=== PATIENT | female | born 1940 | race Caucasian/White ===

== ENCOUNTER 2022-12-01 20:59 | Emergency (ER) | payer OTHER, BC ==
--- OUTSIDE RECORDS SUMMARY | 2022-12-01 21:17 | XMS REPORT | Continuity of Care Document ---
:1940 Author Organization [facility] t Address [address] [place] [address] [place] [id number] Care Team Providers Name Role Phone William Ulysses Daley Primary Care Physician Lucila Christopher MD Attending Clinician LUCILA CHRISTOPHER Attending Clinician Unavailable Pob, [facility] Main Attending Clinician Unavailable Woody Gonzalez MD Attending Clinician WOODY GONZALEZ Attending Clinician Unavailable Ulysses Brown MD Attending Clinician ULYSSES BROWN Attending Clinician Unavailable Doctor Unassigned, Valatie Attending Clinician Unavailable Pcp, Patient Does Not Have A Attending Clinician [phone] MERNA BUCK Attending Clinician Unavailable Merna Forrester Attending Clinician MONALISA NOLASCO Attending Clinician Unavailable ROBIN RAMOS Attending Clinician Unavailable VERENICE MATTHEWS M.D. Attending Clinician Unavailable ULYSSES ENG M.D. Attending Clinician Unavailable Payers Payer Name Policy Type Policy Number Effective Date Expiration Date S ource Problems Condition Condition Condition Status Onset Resolution Last Treating Co mments Source Name Details Category Date Date Treatment Clinician Date Status Status Disease Active 2018-04 [facility] post total post total 0-22 st knee knee 00:00: Hospita replacemen replacemen 00 l t t History of History of Problem Resolve [facility] Other Other d Physici depression depression an s History of History of Problem Resolve [facility] Chronic Chronic d Physici reactive reactive ans otitis otitis externa of externa of both ears both ears History of History of Problem Resolve [facility] Chronic Chronic d Physici throat throat ans clearing clearing History of History of Problem Resolve UT Benign Benign d Physici essential essential ans hypertensi hypertensi on on History of History of Problem Resolve UT Other Other d Physici hyperlipid hyperlipid an s emia emia Pre-operat Pre-operat Problem Active U T sascha sascha Physici cardiovasc cardiovasc an s ular ular examinatio examinatio n n History of History of Problem Resolve UT gastroesop gastroesop d Ph ysici hageal hageal ans reflux reflux (GERD) (GERD) History of History of Problem Resolve UT 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 History of History of Problem Resolve UT Measles Measles d Physici without without ans complicati complicati on on History of History of Problem Resolve UT Other Other d Physici insomnia insomnia ans History of History of Problem Resolve 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 History of History of Problem Resolve UT Seasonal Seasonal d Physic i allergic allergic ans rhinitis rhinitis due to due to other other allergic allergic trigger trigger Primary Primary Problem Active UT 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 Chronic Chronic Problem Active UT pain of pain of Physici left knee left knee ans Abnormal Abnormal Problem Active UT glucose glucose Physici ans Chronic Chronic Problem Active 2020-07-04 Me moria gout, gout, 02:53:22 l unspecifie unspecifie He rmann d, without d, without tophus tophus (tophi) (tophi) Active Problem 07/04/2020 [facility] Rheumatoid Rheumatoi Problem Active 2020-07-04 [facility] arthritis, d 02:53:22 l unspecifie arthritis, He rmann d unspecifie d Active Problem 07/04/2020 [facility] Bilateral Bilateral Problem Active 2020-07-04 Memoria primary primary 02:53:22 l osteoarthr osteoarthr He rmann itis of itis of knee knee Active Problem 07/04/2020 Yudelka Murguia s Nonspecifi Nonspecif Problem Active 2020-07-04 Memoria c ic 02:53:22 l elevation elevation Herm nuris of levels of levels of of transamina transamina se and se and lactic lactic acid acid dehydrogen dehydrogen ase [LDH] ase [LDH] Active Problem 07/04/2020 Yudelka Murguia s Unilateral Unilatera Problem Active 2020-07-04 Memoria primary l primary 02:53:22 l osteoarthr osteoarthr He rmann itis, left itis, left knee knee Active Problem 07/04/2020 Y[facility]elka Murguia s Inflammato Inflammat Problem Active 2020-07-04 Memoria ry ory 02:53:22 l polyarthro polyarthro He rmann gurinder gurinder Active Problem 07/04/2020 Yudelka Murguia s 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 2020-07-04 Memoria d ed 02:53:22 l osteoporos osteoporos He rmann is without is without current current pathologic pathologic al al fracture fracture Active Problem 07/04/2020 Yudelka Murguia s Pain in Pain in Problem Active 2020-07-04 Me moria unspecifie unspecifie 02:53:22 l d knee d knee [place] Active Problem 07/04/2020 Yudelka Murguia s Pain in Pain in Problem Active 2020-07-04 Me moria unspecifie unspecifie 02:53:22 l d hip d hip [place] Active Problem 07/04/2020 Yudelka Murguia s Rheumatoid Rheumatoi Problem Active 2020-07-04 Memoria arthritis d 02:53:22 l without arthritis Paolo n rheumatoid without factor, rheumatoid multiple factor, sites multiple sites Active Problem 07/04/2020 Yudelka Murguia s Arthritis, Arthritis Problem Active 2016-03-09 [facility] Rheumatoid , 03:53:41 l Rheumatoid [place] Active Problem 03/09/2016 [facility]ka Murgu[facility] Chronic Chronic Problem Active 2016-03-09 Me moria gouty gouty 03:53:41 l arthropath arthropath He rmann y without y without mention of mention of tophus tophus (tophi) (tophi) Active Problem 03/09/2016 Yudelka Murguia s Pain in Pain in Problem Active 2016-03-09 Me moria joint, joint, 03:53:41 l pelvic pelvic [place] region and region and thigh thigh Active Problem 03/09/2016 Yudelka Murguia s Swelling Swelling Problem Active 2016-03-09 Mem[facility] of limb of limb 03:53:41 l Active [place] Problem 03/09/2016 Yudelka Murguia s Senile Senile Problem Active 2016-03-09 Mem oria osteoporos osteoporos 03:53:41 l is is Active [place] Problem 03/09/2016 JennersAl Murguia s knee pain knee pain Problem Active 2016-03-09 Memoria Active 03:53:41 l Problem [place] 03/09/2016 Yudelka Murguia s Other Other Problem Active 2016-03-09 Memor ia tenosynovi tenosynovi 03:53:41 l tis of tis of [place] hand and hand and wrist wrist Active Problem 03/09/2016 Yudelka Murguia s Pain in Pain in Problem Active 2016-03-09 Me moria joint, joint, 03:53:41 l hand hand [place] Active Problem 03/09/2016 Yudelka Murguia s Primary Primary Problem Active 2016-03-09 Me moria localized localized 03:53:41 l osteoarthr osteoarthr He nuris osis, osis, lower leg lower leg Active Problem 03/09/2016 Yudelka Murguia [facility] 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 N.K.Amy.A. Active Info Not Yandel tawanna Available -03 l 00:00: [place] 00 NO KNOWN Drug Active Univers ALLERGIE Class ity of S [facility] Family History Family Member Diagnosis Comments Start Date Stop Date Source Mother [facility] history of [facility] diabetes mellitus Mother [facility] history of [facility] hypertension Mother [facility] history of [facility] Stroke of unknown etiology Mother [facility] history of [facility] chronic obstructive pulmonary disease Father [facility] history of [facility] lung cancer Sister [facility] history of [facility] malignant neoplasm Natural father Cancer [facility] Natural mother Stroke [facility] Natural sister Cancer [facility] Natural sister Diabetes [facility] Social History Social Habit Start Date Stop Date Quantity Comments Source Gender identity [facility] Sexual orientation [facility] History of Social 2022-07-07 2022-07-[address] function 00:00:00 00:00:00 Hospital Exposure to 2021-12-22 2022-01-01 Not sure University SARS-CoV-2 (event) 00:00:00 13:46:00 [facility] Tobacco use and 2021-03-08 2021-03-08 Smokeless Universit y of exposure 00:00:00 00:00:00 tobacco non-user [facility] Alcohol intake 2019-01-24 2019-01-24 Lifetime [facility] 00:00:00 00:00:00 non-drinker Hospital (finding) Useofrecreational/s 2016-02-19 2016-02-19 Memor aaliyah Lozada treetdrugs? 00:00:00 00:00:00 Sex [birth year] [facility] 00:00:00 00:00:00 Hospital Smoking Status Start Date Stop Date Source Never smoked tobacco [facility] Medications Ordered Filled Start Stop Current Ordering Indication Dosage Frequency Signature Comments Components Source Medication Medication Date Date Medication? Clinician (SIG) Name Name amLODIPine 2021- No 5mg Take 5 mg U nivers (NORVASC) 5 12-14 by mouth ity of mg tablet 15:58: 00:00 daily. [place] 52 :00 [facility] amLODIPine 2021- No 5mg Take 5 mg U nivers (NORVASC) 5 12-14 by mouth ity of mg tablet 15:58: 00:00 daily. [place] 52 :00 [facility] amLODIPine 2021- No 5mg Take 5 mg U nivers (NORVASC) 5 12-14 by mouth ity of mg tablet 15:58: 00:00 daily. [place] 52 :00 [facility] amLODIPine 2021- No 5mg Take 5 mg U nivers (NORVASC) 5 12-1412 by mouth ity of mg tablet 15:58: 00:00 daily. [place] 52 :00 [facility] mv-mn/iron/ 0 Yes Take by Uni vers folic 9-12 mouth. ity of acid/herb 15:46: [place] 190 05 Medical (VITAMIN D3 Branch COMPLETE ORAL) GABAPENTIN Yes Take by Univ ers ORAL 9-12 mouth. ity of 15:46: [place] 05 Medical Branch mv-mn/iron/ Yes Take by Uni vers folic 9-12 mouth. ity of acid/herb 15:46: [place] 190 05 Medical (VITAMIN D3 Branch COMPLETE ORAL) GABAPENTIN Yes Take by Univ ers ORAL 9-12 mouth. ity of 15:46: [place] 05 Medical Branch mv-mn/iron/ Yes Take by Uni vers folic 9-12 mouth. ity of acid/herb 15:46: [place] 190 05 Medical (VITAMIN D3 Branch COMPLETE ORAL) GABAPENTIN Yes Take by Univ ers ORAL 9-12 mouth. ity of 15:46: [place] 05 Medical Branch mv-mn/iron/ Yes Take by Uni vers folic 9-12 mouth. ity of acid/herb 15:46: [place] 190 05 Medical (VITAMIN D3 Branch COMPLETE ORAL) GABAPENTIN Yes Take by Univ ers ORAL 9-12 mouth. ity of 15:46: [place] 05 Medical Branch mv-mn/iron/ Yes Take by Uni vers folic 9-12 mouth. ity of acid/herb 15:46: [place] 190 05 Medical (VITAMIN D3 Branch COMPLETE ORAL) GABAPENTIN Yes Take by Univ ers ORAL 9-12 mouth. ity of 15:46: [place] 05 Medical Branch NaCl 0.9% 2020-04 Yes by IV Univers (NS) SolP 2-05 Infusion ity of 100 mL with 10:43: route once [place] golimumab 44 now. Medical 12.5 mg/mL Branch Soln NaCl 0.9% 2020-04 Yes by IV Univers (NS) SolP 2-05 Infusion ity of 100 mL with 10:43: route once [place] golimumab 44 now. Medical 12.5 mg/mL Branch Soln NaCl 0.9% 2020-04 Yes by IV Univers (NS) SolP 2-05 Infusion ity of 100 mL with 10:43: route once [place] golimumab 44 now. Medical 12.5 mg/mL Branch Soln NaCl 0.9% 2020-04 Yes by IV Univers (NS) SolP 2-05 Infusion ity of 100 mL with 10:43: route once [place] golimumab 44 now. Medical 12.5 mg/mL Branch Soln NaCl 0.9% 2020-04 Yes by IV Univers (NS) SolP 2-05 Infusion ity of 100 mL with 10:43: route once [place] golimumab 44 now. Medical 12.5 mg/mL Branch Soln lisinopriL 2021- No Univer s 10 mg 12-22 ity of tablet 00:00: 00:00 [place] 00 :00 Medical Branch lisinopriL 0 2021- No Univer s 10 mg 12-22 ity of tablet 00:00: 00:00 [place] 00 :00 Medical Branch lisinopriL 0 2021- No Univer s 10 mg 12-22 ity of tablet 00:00: 00:00 [place] 00 :00 Medical Branch lisinopriL 0 2021- No Univer s 10 mg 12-22 ity of tablet 00:00: 00:00 [place] 00 :00 Medical Branch Arava Yes Abdelnaser 1 tablet Me moria 4- [place] l 02:53: Cymbalta Yes Abdelnaser 1 capsule Memoria 4- [place] l 02:53: [place] 22 [place] Yes Abdelnaser as Memori a 4-02 [place] directed l 02:53: Prolia Yes Abdelnaser as Memor ia 4-02 [place] directed l 02:53: Allopurinol Yes Abdelnaser 1 tablet Memoria 4-02 [place] l 02:53: Gabapentin Yes Abdelnaser 1 tablet Memoria 4-02 [place] l 02:53: Simponi Yes Abdelnaser as Yandel tawanna Aria 4-02 [place] directed l 02:53: Voltaren Yes Abdelnaser 2-4 grams Memoria 4-02 [place] l 02:53: Seroquel Yes Abdelnaser 1 tablet Memoria 4-02 [place] at bedtime l 02:53: Voltaren Yes Abdelnaser 2-4 grams Memoria 4-02 [place] l 02:53: [place] 22 Gabapentin Yes Abdelnaser 1 tablet Memoria 4-02 [place] l 02:53: Simponi Yes Abdelnaser as Yandel tawanna Aria 4-02 [place] directed l 02:53: Prolia Yes Abdelnaser as Memor ia 4-02 [place] directed l 02:53: Arava Yes Abdelnaser 1 tablet Me moria 4-02 [place] l 02:53: Seroquel Yes Abdelnaser 1 tablet Memoria 4-02 [place] at bedtime l 02:53: Cymbalta Yes Abdelnaser 1 capsule Memoria 4-02 [place] l 02:53: [place] Yes Abdelnaser as Memori a 4-02 [place] directed l 02:53: [place] 22 Allopurinol Yes Abdelnaser 1 tablet Memoria 4-02 [place] l 02:53: Gabapentin Yes Abdelnaser TAKE ONE Memoria 3-18 [place] CAPSULE BY l 02:48: MOUTH [place] 11 TWICE A DAY Gabapentin Yes Abdelnaser TAKE ONE Memoria 3-18 [place] CAPSULE BY l 02:48: MOUTH [place] 11 TWICE A DAY Reclast Yes Abdelnaser as Yandel tawanna 3-04 [place] directed l 03:51: [place] Reclast Yes Abdelnaser as Yandel tawanna 3-04 [place] directed l 03:51: [place] gabapentin 2019-1 Yes 100mg [id number] Take 100 [facility] (NEURONTIN) 0-24 [id number] mg by s t 100 mg 13:17: 3D mouth 3 Hospita capsule 02 (three) l times a day. ondansetron 2018-04 Yes 4mg Q8H Take 1 Meth domenica (ZOFRAN) 4 0-09 tablet (4 st MG tablet 00:00: mg total) Hos sadia 00 by mouth l every 8 (eight) hours as needed for nausea or vomiting. naloxegol 2018-04 Yes 25mg QD Take 1 Method i (MOVANTIK) 0-09 tablet (25 st 25 mg 00:00: mg total) Hospita tablet 00 by mouth l tablet daily before breakfast. lisinopril 2018-04 Yes [facility] (PRINIVIL) 0-02 st 10 mg 00:00: Hospita tablet 00 l QUEtiapine 2018-04 Yes [facility] (SEROquel) 0-01 st 50 MG 00:00: Hospita tablet 00 l amLODIPine Yes [facility] (NORVASC) 5 9-22 st mg tablet 00:00: Hospita 00 l pantoprazol Yes Method i e 919 st (PROTONIX) 00:00: Hospita 40 MG EC 00 l tablet benztropine Yes Method i (COGENTIN) 9-04 st 0.5 MG 00:00: Hospita tablet 00 l allopurinol Yes Method [facility] (ZYLOPRIM) 8-05 st 300 MG 00:00: Hospita tablet 00 l traZODone Yes [facility] (DESYREL) 8-05 st 50 MG 00:00: Hospita tablet 00 l Norvasc Yes Abdelnaser one Yandel tawanna 7-30 [place] l 02:45: [place] 31 Norvasc Yes Abdelnaser one Yandel tawanna 7-30 [place] l 02:45: [place] 31 Fluocinolon Fluocinolon Yes ULYSSES 3-4 drops UT e Acetonide e Acetonide 10-24 ALBERTINA Zee to Physici 0.01 % Otic 0.01 % Otic 00:00: affected ans Oil Oil 00 ear daily. DULoxetine Yes [facility] (CYMBALTA) 6-26 st 60 MG 00:00: Hospita capsule 00 l Prolia 2018 Yes Abdelnaser as Memor ia 9-04 [place] directed l 00:00: [place] Prolia Yes Abdelnaser as Memor ia 9-04 [place] directed l 00:00: [place] Gabapentin 2018 Yes Abdelnaser 1 tablet Memoria 8-13 [place] l 02:45: [place] Gabapentin Yes Abdelnaser 1 tablet Memoria 8-13 [place] l 02:45: [place] 2016-04 Yes Abdelnaser as Memori a 0-21 [place] directed l 02:46: [place] Allopurinol 2017 Yes Abdelnaser 1 tablet Memoria 0-21 [place] l 02:46: [place] Simponi 2016-04 Yes Abdelnaser as Yandel tawanna Aria 0-21 [place] directed l 02:46: [place] Voltaren 2016-04 Yes Abdelnaser 2-4 grams Memoria 0-21 [place] l 02:46: [place] Cymbalta 2016-04 Yes Abdelnaser 1 capsule Memoria 0-21 [place] l 02:46: [place] [facility] Abdelnaser 1 tablet Memoria 0-21 [place] l 02:46: [place] Ambien CR 2016-04 Yes Abdelnaser 1 tablet Memoria 0-21 [place] at bedtime l 02:46: as needed [place] [facility] 2016-[facility] Yes Abdelnaser 1 tablet Memoria 0-21 [place] l 02:46: [place] Cymbalta 2016-04 Yes Abdelnaser 1 capsule Memoria 0-21 [place] l 02:46: [place] Voltaren 2016-04 Yes Abdelnaser 2-4 grams Memoria 0-21 [place] l 02:46: [place] 2016-04 Yes Abdelnaser as Memori a 0-21 [place] directed l 02:46: [place] Seroquel 2016-04 Yes Abdelnaser 1 tablet Memoria 0-21 [place] at bedtime l 02:46: [place] Allopurinol 2016-04 Yes Abdelnaser 1 tablet Memoria 0-21 [place] l 02:46: [place] Simponi 2016-04 Yes Abdelnaser as Yandel tawanna Aria 0-21 [place] directed l 02:46: [place] Ambien CR 2016-04 Yes Abdelnaser 1 tablet Memoria 0-21 [place] at bedtime l 02:46: as needed [place] Seroquel 2016-04 Yes Abdelnaser 1 tablet Memoria 0-21 [place] at bedtime l 02:46: [place] Gabapentin Yes Abdelnaser 1 tablet Memoria 9-14 [place] l 02:45: [place] Arava Yes Abdelnaser 1 tablet Me moria 9-14 [place] l 02:45: [place] Reclast Yes Abdelnaser as Yandel tawanna 9-14 [place] directed l 02:45: [place] Prolia Yes Abdelnaser as Memor ia 9-14 [place] directed l 02:45: [place] Gabapentin Yes Abdelnaser 1 tablet Memoria 9-14 [place] l 02:45: [place] Arava Yes Abdelnaser 1 tablet Me moria 9-14 [place] l 02:45: [place] Reclast Yes Abdelnaser as Yandel tawanna 9-14 [place] directed l 02:45: [place] Prolia Yes Abdelnaser as Memor ia 9-14 [place] directed l 02:45: [place] 14 Arava Yes Abdelnaser 1 tablet Me moria 7-24 [place] l 00:00: [place] Arava Yes Abdelnaser 1 tablet Me moria 7-24 [place] l 00:00: [place] 00 Prolia Yes Abdelnaser as Memor ia 4-25 [place] directed l 00:00: [place] Prolia Yes Abdelnaser as Memor ia 4-25 [place] directed l 00:00: [place] Allopurinol Allopurinol Yes ONE TABLET UT 300 MG Oral 300 MG Oral BY MOUTH Physici Tablet Tablet ONCE DAILY ans Lisinopril Lisinopril Yes TAKE 1 U T 10 MG Oral 10 MG Oral TABLET BY Physici Tablet Tablet MOUTH ans EVERY DAY Omeprazole Omeprazole Yes ONE TABLET UT 40 MG Oral 40 MG Oral BY MOUTH Physici Capsule Capsule ONCE DAILY ans Delayed Delayed Release Release Norvasc 5 Norvasc 5 Yes 1 QD TAKE 1 UT MG Oral MG Oral TABLET Physici Tablet Tablet DAILY. ans Simponi Simponi Yes TAKE UT Aria 50 Aria 50 DIRECTED Physi ci MG/4ML MG/4ML ans Intravenous Intravenous Solution Solution Advil 200 Advil 200 Yes One tablet UT MG Oral MG Oral by mouth Physi ci Tablet Tablet once daily ans as needed Calcium Calcium Yes 100 MG BY UT TABS TABS MOUTH ONCE Physici DAILY ans Probiotic Probiotic Yes Q0.5D TAKE 1 UT 250 MG Oral 250 MG Oral CAPSULE Physici Capsule Capsule TWICE ans DAILY. Gabapentin Gabapentin Yes TAKE ONE UT 100 MG Oral 100 MG Oral CAPSULE BY Physici Capsule Capsule MOUTH ans TWICE DAILY Famotidine Famotidine Yes TAKE 1 U T 20 MG Oral 20 MG Oral TABLET BY Physici Tablet Tablet MOUTH ONCE ans DAILY DIRECTED Astelin 137 Astelin 137 Yes one spray UT MCG/SPRAY MCG/SPRAY to each Ph ysici SOLN SOLN nostril ans twice daily Leflunomide Leflunomide Yes 1 QD TAKE 1 UT 20 MG Oral 20 MG Oral TABLET P hysici Tablet Tablet DAILY. ans Lunesta 3 Lunesta 3 Yes TAKE 1 UT MG Oral MG Oral TABLET AT Phys ici Tablet Tablet BEDTIME ans NEEDED FOR SLEEP. SEROquel 50 SEROquel 50 Yes ONE TABLET UT MG Oral MG Oral BY MOUTH Physi ci Tablet Tablet ONCE ans DURING THE DAY AND ONCE AT BEDTIME DULoxetine DULoxetine Yes TAKE 1 U T HCl - 60 MG HCl - 60 MG CAPSULE Physici Oral Oral EVERY DAY ans Capsule Capsule Delayed Delayed Release Release Particles Particles Flonase Flonase Yes ONE SPRAY UT Allergy Allergy TO EACH Physic i Relief 50 Relief 50 NOSTRIL an s MCG/ACT MCG/ACT DAILY Nasal Nasal Suspension Suspension Immunizations Ordered Immunization Filled Immunization Date Status Commen ts Source Name Name Tdap Unknown Completed [facility] pneumococcal vaccine, Unknown Completed [facility] unspecified formulation Hepatitis A and Unknown Completed [facility] Hepatitis B vaccine Zoster (Zostavax) Unknown Completed Unknown [facility] poliovirus vaccine, Unknown Completed Childhood [facility] unspecified formulation Vital Signs Vital Name Observation Time Observation Value Comments Source Systolic blood 2021-12-14 123 mm[Hg] [facility] pressure 20:48:00 [facility] Diastolic blood 2021-12-14 61 mm[Hg] [place] o pressure 20:48:00 [facility] Heart rate 2021-12-14 82 /min [facility] 20:48:00 [facility] Body temperature 2021-12-14 36.22 Nora [facility] 20:48:00 [facility] Respiratory rate 2021-12-14 18 /min [facility] 20:48:00 [facility] Body weight 2021-12-14 74.889 kg [facility] 20:48:00 [facility] BMI 2021-12-14 30.20 kg/m2 [facility] 20:48:00 [facility] Oxygen saturation 2021-12-14 97 /min [facility] Arterial blood 20:48:00 [facility] by Pulse oximetry Branch BP Systolic 2019-01-10 135 mm[Hg] Location: RUE; [facility] 15:15:00 Position: Sitting BP Diastolic 2019-01-10 82 mm[Hg] Location: RUE; [facility] 15:15:00 Position: Sitting BP Systolic 2018-10-24 152 mm[Hg] [facility] 13:30:00 BP Diastolic 2018-10-24 63 mm[Hg] [facility] 13:30:00 Height 2018-10-24 62 [in_us] [facility] 13:30:00 Weight 2018-10-24 152.4375 [lb_av] [facility] 13:30:00 Body Mass Index 2018-10-24 27.88 kg/m2 [facility] Calculated 13:30:00 Heart Rate 2018-10-24 96 /min [facility] 13:30:00 Weight 2018-04-06 Davey Paolo n 18:00:00 Height 2018-04-06 Davey Paolo n 18:00:00 Respitory Rate 2018-04-06 [facility]y [facility] nuris 18:00:00 Diastolic (mm Hg) 2018-04-06 [facility] H ermann 18:00:00 Systolic (mm Hg) 2018-04-06 [facility] Rhett rmann 18:00:00 Temperature Oral 2018-04-06 96.4 F [facility] rmann (F) 18:00:00 Heart Rate 2018-04-06 [facility] 18:00:00 Weight 2018-02-02 [facility] 16:00:00 Height 2018-02-02 [facility] n 16:00:00 Respitory Rate 2018-02-02 [facility] 16:00:00 Diastolic (mm Hg) 2018-02-02 [facility] ermann 16:00:00 Systolic (mm Hg) 2018-02-02 [facility] He rmann 16:00:00 Temperature Oral 2018-02-02 96 F [facility] rmann (F) 16:00:00 Heart Rate 2018-02-02 [facility] Paolo n 16:00:00 Weight 2017-12-06 [facility] n 19:00:00 Height 2017-12-06 [facility] n 19:00:00 Respitory Rate 2017-12-06 [facility] 19:00:00 Diastolic (mm Hg) 2017-12-06 [facility] ermann 19:00:00 Systolic (mm Hg) 2017-12-06 [facility] rmann 19:00:00 Temperature Oral 2017-12-06 96 F [facility] rmann (F) 19:00:00 Heart Rate 2017-12-06 [facility] Paolo n 19:00:00 Weight 2017-10-11 [facility] n 18:00:00 Height 2017-10-11 [facility] n 18:00:00 Respitory Rate 2017-10-11 [facility] 18:00:00 Diastolic (mm Hg) 2017-10-11 [facility] ermann 18:00:00 Systolic (mm Hg) 2017-10-11 [facility] rmann 18:00:00 Temperature Oral 2017-10-11 96.3 F [facility] (F) 18:00:00 Heart Rate 2017-10-11 [facility] Paolo n 18:00:00 Weight 2017-08-18 [facility] n 18:00:00 Systolic (mm Hg) 2017-08-18 [facility] 18:00:00 Respitory Rate 2017-08-18 [facility] 18:00:00 Heart Rate 2017-08-18 [facility] Paolo n 18:00:00 Temperature Oral 2017-08-18 96.3 F [facility]mann (F) 18:00:00 Diastolic (mm Hg) 2017-08-18 [facility] ermann 18:00:00 Temperature Oral 2017-02-14 96.1 F [facility] (F) 18:00:00 Diastolic (mm Hg) 2017-02-14 [facility] ermann 18:00:00 Weight 2017-02-14 [facility] Paolo n 18:00:00 Systolic (mm Hg) 2017-02-14 [facility] rmann 18:00:00 Respitory Rate 2017-02-14 [facility] 18:00:00 Heart Rate 2017-02-14 [facility] Paolo n 18:00:00 Weight 2017-01-06 [facility] Paolo n 15:15:00 Systolic (mm Hg) 2017-01-06 [facility] rmann 15:15:00 Respitory Rate 2017-01-06 [facility] nuris 15:15:00 Heart Rate 2017-01-06 [facility] Paolo n 15:15:00 Temperature Oral 2017-01-06 98.4 F [facility] rmann (F) 15:15:00 Diastolic (mm Hg) 2017-01-06 [facility] ermann 15:15:00 Weight 2016-12-30 [facility] 15:[facility] Systolic (mm Hg) 2016-12-30 [facility] 15:30:00 Respitory Rate 2016-12-30 [facility] 15:30:00 Heart Rate 2016-12-30 [facility] 15:30:00 Temperature Oral 2016-12-30 98.1 F [facility] (F) 15:30:00 Diastolic (mm Hg) 2016-12-30 [facility] 15:30:00 Weight 2016-10-28 [facility] 16:00:00 Systolic (mm Hg) 2016-10-28 [facility] 16:00:00 Respitory Rate 2016-10-28 [facility] 16:00:00 Heart Rate 2016-10-28 [facility] 16:00:00 Temperature Oral 2016-10-28 97.3 F [facility] (F) 16:00:00 Diastolic (mm Hg) 2016-10-28 [facility] 16:00:00 Weight 2016-08-12 [facility] 15:00:00 Systolic (mm Hg) 2016-08-12 [facility] 15:00:00 Respitory Rate 2016-08-12 [facility] 15:00:00 Heart Rate 2016-08-12 [facility] 15:00:00 Temperature Oral 2016-08-12 96.9 F [facility] (F) 15:00:00 Diastolic (mm Hg) 2016-08-12 [facility] Heide ermann 15:00:00 Weight 2016-07-27 Davey Boone n 15:30:00 Systolic (mm Hg) 2016-07-27 [facility] Rhett rmann 15:30:00 Respitory Rate 2016-07-27 Davey Reynoso nuris 15:30:00 Heart Rate 2016-07-27 Davey Boone n 15:30:00 Temperature Oral 2016-07-27 97.8 F [facility] Rhett rmann (F) 15:30:00 Diastolic (mm Hg) 2016-07-27 [facility] Heide ermann 15:30:00 Procedures Procedure Date / Time Performing Clinician Source Performed HB ECG ROUTINE & RHYTHM 2021-12-14 20:51:18 Lucila [facility] EKG (In Office) 2019-01-08 00:00:00 [facility] [[facility]] ABO GROUP AND RH 2019-01-08 00:00:00 [facility] TYPE [[facility]] CBC (INCLUDES 2019-01-08 00:00:00 [facility] DIFF/PLT) [QLH] CMP W/EGFR 2019-01-08 00:00:00 [facility] [[facility]] PARTIAL 2019-01-08 00:00:00 [facility] THROMBOPLASTIN TIME, ACTIVATED [QLH] PROTHROMBIN 2019-01-08 00:00:00 [facility] TIME-INR [QLH] URINALYSIS, 2019-01-08 00:00:00 [facility] COMPLETE W/REFLEX TO CULTURE XRAY Chest 2 views [id number] 2019-01-08 00:00:00 [facility] History of Tonsillectomy [facility] History of Knee [facility] Replacement [facility] of Hysterectomy [facility] History of Jejunoileal [facility] bypass History of Laminectomy [facility] Lumbar History of Total Knee [facility] Re[facility] Right [facility] of Eye surgery [facility] Plan of Care Planned Activity Planned Date Details Comments Source Future Scheduled 2022-11-28 COVID-19 VACCINE (#1) [facility] Test 08:56:31 [code = COVID-19 VACCINE (#1)] Future Scheduled 2022-11-28 SHINGLES VACCINES (1 Met [facility] Test 08:56:31 of 2) [code = SHINGLES VACCINES (1 of 2)] Future Scheduled 2022-11-28 65+ PNEUMOCOCCAL Methodi [facility] Test 08:56:31 VACCINE (1 - PCV) [code = 65+ PNEUMOCOCCAL VACCINE (1 - PCV)] Future Scheduled 2022-11-28 INFLUENZA VACCINE (#1) M [facility] Test 08:56:31 [code = INFLUENZA VACCINE (#1)] Encounters Start End Encounter Admission Attending Care Care Encounter Source Date/Time Date/Time Type Type Clinicians Facility Department ID 2018-12-18 Outpatient [facility] [id number] 08:57:13 [facility] 2022-01-05 2022-01-05 Telephone [facility], [facility] [id number] Univers 00:00:00 00:00:00 Lucila BARRIENTOS [id number] it[facility] [id number] [phone] Wy dicwi NAL [address] [place] [address] 2022-01-01 2022-01-01 Outpatient R ASHWIN, [facility] [id number] Univers 14:00:00 14:00:00 LUCILA kekeanson [facility] 2022-01-01 2022-01-01 Outpatient R ASHWIN, [facility] [id number] Univers 13:46:30 13:46:30 MARGARITORANJEET kekeanson [facility] 2021-12-14 2021-12-14 [facility] [id number] Univers 15:40:00 16:06:00 Visit Lucila BARRIENTOS [id number] ity [facility] [id number] [phone] Wy dical NAL [address] [place] [address] 2021-12-14 2021-12-14 Outpatient R ASHWIN, [facility] [id number] Univers 15:40:00 16:06:00 KIZZYANDERSON kekeanson o [facility] 2021-12-14 2021-12-14 Outpatient R ASHWIN, [facility] [id number] Univers 15:40:00 15:40:00 KIZZYANDERSON kekeanson o [facility] 2021-12-14 2021-12-14 Outpatient R ASHWIN, [facility] [id number] Univers 15:40:00 15:40:00 MARGARITONGJUN ity o f [facility] 2021-10-22 2021-10-22 Junior Brand Manager Brandi, [facility] Main [facility] 1.2.8 [id number] [id number] Univers 16:15:00 16:30:00 Visit Woody Gonzalez ILIANA [id number] [id number] [phone] Wy dical NAL [address] [facility] 2021-10-22 2021-10-22 Outpatient [facility] [id number] Univers 16:15:00 16:15:00 RUDYJNJami kekeanson [facility] 2021-10-22 2021-10-22 Outpatient R ROSALBA, [facility] [id number] Univers 16:15:00 16:15:00 WOODY b[facility] 2021-10-15 2021-10-15 Junior Brand Manager Brandi, [facility] Main [facility] 1.2.8 [id number] [id number] Univers 09:45:00 10:00:00 Visit Ulysses Brown [id number] [id number] [phone] Wy dical NAL [address] [facility] 2021-10-15 2021-10-15 Outpatient R STEPHANIE, [facility] [id number] Univers 09:45:00 09:45:00 ULYSSES [facility] 2021-10-15 2021-10-15 Orders Doctor CAMARILLO [id number] Univers 00:00:00 00:00:00 Only Unassigned, HERMAN [id number] ity of [place] [facility] [id number] Yeyo as [phone] [address] 2021-07-31 2021-07-31 Junior Brand Manager Brandi, [facility] Main [facility] 1.2.8 40.114 [id number] Univers 10:45:00 11:00:00 Visit Ulysses Brown [id number] ity [facility] [id number] [phone] Me dical LULI [address] [facility] 2021-07-31 2021-07-31 Outpatient [facility] [id number] Univers 10:45:00 10:45:00 ULYSSES ity of [facility] 2021-07-31 2021-07-31 Orders Doctor RABIA [id number] Univers 00:00:00 00:00:00 Only Unassigned, HERMAN [id number] ity of [place] [facility] [id number] Yeyo as [phone] [address] 2021-07-31 2021-07-31 Telephone Pcp, [facility] [id number] [facility] 00:00:00 00:00:00 Patient HEALTH [id number] it y of Does Not [id number] TAYE?BLEA [phone] Wy dical JOSHDANIE 044 [facility] OFFICE [facility] 2021-03-08 2021-03-08 Outpatient R [facility] [id number] Univers 10:40:00 11:18:25 MERNA jarrell f [facility] 2021-03-08 2021-03-08 [facility] [id number] Univers 10:29:09 10:49:09 Care Merna J HEALTH [id number] [facility] [id number] [place]o as TAYE?BLEA [phone] Wy dicgayle MORENODANIE [address] MEDICAL OFFICE [facility] 2020-09-17 2020-09-17 Outpatient CONSTANCE MHSE MHSE [id number] MH 10:16:00 23:59:[address] [facility] 2020-06-17 2020-06-17 Outpatient CONSTANCE, MHSE MHSE [id number] MH 07:55:00 23:59:[address] [facility] 2020-01-08 2020-01-08 Outpatient RACHEL [facility] [id number] [place] 00:00:00 00:00:[address] 2020-01-08 2020-01-08 Outpatient RACHEL [facility] [id number] [place] 00:00:00 00:00:00 ROBIN Mar Method i 2019-03-12 2019-03-12 Outpatient [facility] [id number] 09:43:00 09:43:00 [facility] 2019-01-10 2019-01-10 Appointmen SHARIF MATTHEWS Primary [id number] [place] 14:00:00 14:00:00 t; VERENICE MATTHEWS M.D. [facility] Arcadio CALDERA M.D. [facility] 2018-10-24 2018-10-24 Appointmen SHARIF ENG Otorhinolar [id number] [place] 13:00:00 13:00:00 t; [facility]SSES [facility] ARORA M.D. [facility] oral Zee [place] 2018-04-06 2018-04-06 Outpatient CLS CLS [id number] eClinic 13:00:00 13:00:00 [facility] 2018-04-05 2018-04-05 Outpatient CLS CLS [id number] eClinic 08:28:00 08:28:00 [facility] 2018-02-02 2018-02-02 Outpatient CLS CLS [id number] eClinic 11:00:00 11:00:[address] [facility] 2017-12-06 2017-12-06 Outpatient CLS CLS [id number] eClinic 13:00:00 13:00:00 Infusion Infusion alWo rks [facility] 2017-10-11 2017-10-11 Outpatient CLS CLS [id number] eClinic 13:00:00 13:00:00 Infusion Infusion alWo rks [facility] 2017-08-18 2017-08-18 Outpatient Osiris Newell [id number] eClinic 13:00:00 13:00:00 [facility] alWorks cs and and Therapeut Therapeutic ics s 2017-04-29 2017-04-29 Outpatient Clear Jenners [id number] eClinic 10:59:00 10:59:00 [facility] al Works [facility] 2017-04-28 2017-04-28 Outpatient Osiris Newell [id number] eClinic 15:13:00 15:13:00 [facility] cs & & Therapeut Therapeutic ics s 2017-04-14 2017-04-14 Outpatient DO NOT DO NOT USE [id number] eClinic 13:36:00 13:36:00 USE - CLS - CLS - Fermin alWorks - Fermin A A 2017-03-15 2017-03-15 Outpatient CLS PROJECT SCHEDULER CLS PROJECT SCHEDULER [id number] eClinic 15:18:00 15:18:00 Clear Jenners alW orks Melendez [facility] Clinic 2017-02-17 2017-02-17 Outpatient DO NOT DO NOT USE [id number] eClinic 09:58:00 09:58:00 USE - CLS - CLS - Fermin alWorks - Fermin A A 2017-02-14 2017-02-14 Outpatient DO NOT DO NOT USE [id number] eClinic 13:00:00 13:00:00 USE - CLS - CLS - Fermin alWorks - Fermin A A 2017-01-06 2017-01-06 Outpatient DO NOT DO NOT USE [id number] eClinic 10:15:00 10:15:00 USE - CLS - CLS - Fermin alWorks - Fermin A A 2016-12-30 2016-12-30 Outpatient DO NOT DO NOT USE [id number] eClinic 16:56:00 16:56:00 USE - CLS - CLS - Fermin alWorks - Fermin A A 2016-12-30 2016-12-30 Outpatient DO NOT DO NOT USE [id number] eClinic 10:30:00 10:30:00 USE - CLS - CLS - Fermin alWorks - Fermin A A 2016-10-28 2016-10-28 Outpatient DO NOT DO NOT USE [id number] eClinic 10:00:00 10:00:00 USE - CLS - CLS - Fermin alWorks - Fermin A A 2016-08-12 2016-08-12 Outpatient CLS - Fermin CLS - Fermin A 7 [id number] eClinic 10:22:00 10:22:00 A alWork s 2016-08-12 2016-08-12 Outpatient CLS - Fermin CLS - Fermin A 6 [id number] eClinic 10:00:00 10:00:00 A alWork s 2016-07-27 2016-07-27 Outpatient CLS - Fermin CLS - Fermin A 5 [id number] eClinic 10:30:00 10:30:00 A alWork s 2016-06-09 2016-06-09 Outpatient CLS - Fermin CLS - Fermin A 6 [id number] eClinic 09:22:00 09:22:00 A alMónica s 2016-04-23 2016-04-23 Outpatient CLS - Fermin CLS - Fermin A 6 [id number] eClinic 09:50:00 09:50:00 A Kristy s 2016-02-02 2016-02-02 Unknown nullFlavo Jenners b0bf8 f32-8 Memoria 14:40:00 14:40:00 r Specialties 858-47de-9 l 601-d8b86f Susie nn 71a4a3 2016-02-02 2016-02-02 Unknown nullFlavo Jenners b0bf8 f32-8 Memoria 14:40:00 14:40:00 r Specialties 858-47de-9 l 601-d8b86f Susie nn 71a4a3 2016-02-02 2016-02-02 Outpatient Clear Jenners [id number] eClinic 08:40:00 08:40:[address] [place] 2015-12-18 2015-12-18 Test nullFlavo Jenners 3eaf8 bcb-3 Memoria 13:55:00 13:55:00 results r Specialties fatuma-4efe-a l x1r-elx55d Susie nn 1h828w 2015-12-18 2015-12-18 Test nullFlavo Jenners 3eaf8 bcb-3 Memoria 13:55:00 13:55:00 results r Specialties fatuma-4efe-a l d3r-tmr50i Susie nn 5n209n 2015-12-18 2015-12-18 Test nullFlavo Jenners 8a82e b84-e Memoria 12:55:00 12:55:00 results r Specialties 7k7-7n6y-i l a9w-e5g5ug Susie nn [id number] 2015-12-18 2015-12-18 Test nullFlavo Jenners 8a82e b84-e Memoria 12:55:00 12:55:00 results r Specialties 1k3-9c4y-b l e0b-w5a5ly Susie nn hle411 2015-12-18 2015-12-18 Outpatient Clear Jenners [id number] eClinic 07:55:00 07:55:00 Melendez [place] 2015-06-10 2015-06-10 Test nullFlavo Jenners f12f1 985-e Memoria 14:04:00 14:04:00 results r Specialties ad9-434d-a l [id number]-164365 Susie nn [id number] 3816-03-08 2015-06-10 Test nullFlavo Jenners de48c e86-a Memoria 14:04:00 14:04:00 results r Specialties dd3-4a9d-9 l e7z-791u46 Susie nn c89bfc 2015-06-10 2015-06-10 Test nullFlavo Jenners f12f1 985-e Memoria 14:04:00 14:04:00 results r Specialties ad9-434d-a l i0n-181415 Susie nn [id number] 4427-03-08 2015-06-10 Test nullFlavo Jenners de48c e86-a Memoria 14:04:00 14:04:00 results r Specialties dd3-4a9d-9 l p7m-740q53 Susie nn c89bfc 2015-06-10 2015-06-10 Test nullFlavo Jenners d6e95 4b4-8 Memoria 13:04:00 13:04:00 results r Specialties 4j5-10e4-g l f03-qs43y8 Susie nn [id number] 5031-03-08 2015-06-10 Test nullFlavo Jenners d6e95 4b4-8 Memoria 13:04:00 13:04:00 results r Specialties 7v8-64z1-v l n39-xu19d0 Susie nn [id number] 9707-03-08 2015-06-10 Outpatient Clear Jenners [id number] eClinic 08:04:00 08:04:00 Melendez Specialties al Works Specialti es 2015-01-07 2015-01-07 refill nullFlavo Jenners faa6b 0db-3 Memoria 21:00:00 21:00:00 r Specialties 24a-49c4-8 l 1v8-17d194 Susie nn e153e8 2015-01-07 2015-01-07 refill nullFlavo Jenners 2a5b6 c0a-f Memoria 21:00:00 21:00:00 r Specialties 4dc-4d67-9 l ee5-7d9d5e Susie nn 04a94c 2015-01-07 2015-01-07 refill nullFlavo Jenners 2a5b6 c0a-f Memoria 21:00:00 21:00:00 r Specialties 4dc-4d67-9 l ee5-7d9d5e Susie nn 04a94c 2015-01-07 2015-01-07 refill nullFlavo Jenners faa6b 0db-3 Memoria 21:00:00 21:00:00 r Specialties 24a-49c4-8 l 0s1-61e750 Susie nn e153e8 2015-01-07 2015-01-07 refill nullFlavo Jenners 00770 e24-7 Memoria 20:00:00 20:00:00 r Specialties bef-45bf-b l 9da-d9e4a5 Susie nn hqc938 2015-01-07 2015-01-07 refill nullFlavo Jenners 61688 e24-7 Memoria 20:00:00 20:00:00 r Specialties bef-45bf-b l 9da-d9e4a5 Susie nn yey941 2015-01-06 2015-01-06 refill nullFlavo Jenners 9ad3d 24f-0 Memoria 14:07:00 14:07:00 resend r Specialties b62-6877-s l 6c1-135j49 Susie nn c2f4a6 2015-01-06 2015-01-06 refill nullFlavo Jenners 9ae72 b85-3 Memoria 14:07:00 14:07:00 resend r Specialties de5-4e51-9 l 8c8-32u00o Susie nn 2d2aa1 2015-01-06 2015-01-06 refill nullFlavo Jenners 9ae72 b85-3 Memoria 14:07:00 14:07:00 resend r Specialties de5-4e51-9 l 8k6-09x92g Susie nn 2d2aa1 2015-01-06 2015-01-06 refill nullFlavo Jenners 9ad3d 24f-0 [facility]oria 14:07:00 14:07:00 resend r Specialties c93-1466-z l 0e3-606f27 Susie nn c2f4a6 2015-01-06 2015-01-06 refill nullFlavo Jenners 39be1 71a-0 [facility] 13:07:00 13:07:00 resend r Specialties w3t-21e0-u l 484-8v559v Susie carvajal 2kt457 2015-01-06 2015-01-06 refill nullFlavo Jenners 39be1 71a-0 [facility] 13:07:00 13:07:00 resend r Specialties t5c-27p0-y l 484-3t770e Susie carvajal 4gz262 Results This patient has no known results.
--- NOTE | 2022-12-01 22:24 | RAD REPORT ---
EXAM DESCRIPTION: Thomas Single View12/01/2022 10:14 pm CLINICAL HISTORY: Hypertension and swelling COMPARISON: 2021 FINDINGS: Chronic elevation right hemidiaphragm The lungs appear clear of acute infiltrate. The heart is normal size IMPRESSION: No acute abnormalities displayed
[2022-12-01 23:15] LABS: Protime INR 1.44
[2022-12-01 23:16] LABS: Absolute Lymphocytes (CBC) 0.6 K/uL (0.7-4.9); Hematocrit 35.3 % (36.0-45.0); Lymphocytes % 13.6 % (15.3-44.8); MCV 93.7 fL (80-100); MPV 9.7 fL (7.6-11.3); Platelets 137 thou/uL (152-406); RBC Red Blood Cell Count 3.77 M/uL (3.86-4.86)
[2022-12-01 23:27] LABS: Albumin 3.2 g/dL (3.4-5.0); Bilirubin Direct 0.2 mg/dL (0-0.2); Bilirubin Indirect, Calculated 0.4 mg/dL (0.2-0.8); Bilirubin Total 0.6 mg/dL (0.2-1.0); Magnesium 1.4 mg/dL (1.6-2.4); Potassium 4.7 mEq/L (3.5-5.1); Protein, Total 7.4 g/dL (6.4-8.2); Troponin High Sensitivity 5.2 pg/mL (<58.9)
--- NOTE | 2022-12-02 00:32 | EDPHYS ---
Physician Documentation [facility] Name: Payal Munoz Age: 82 yrs Sex: Female : 1940 Arrival Date: 12/01/2022 Time: 20:59 Bed 17 Private MD: ED Physician Jerry Ocasio HPI: 12/01 21:55 This 82 yrs old Female presents to ER via Ambulatory with complaints of sp4 general complaint . 22:55 82-year-old female with history of hypertension and rheumatoid arthritis presents with sp4 3 weeks of worsening bilateral lower extremity edema with pitting with a worsening the last 2 to 3 days. Patient states there is discomfort on ambulation. Patient denies shortness of breath, chest pain, or any other symptoms.. Patient does see resolution expert. . 12/02 00:28 Patient takes Plavix, Eliquis, amiloride, famotidine, magnesium oxide, potassium sp4 supplementation.. Historical: - Allergies: 12/01 21:27 No Known Allergies; lg3 - PMHx: 21:27 Hypertension; Rheumatoid Arthritis; lg3 - PSHx: 21:27 hysterectomy; back; bilateral knee replacement; bilateral feet; lg3 - Immunization history:: Adult Immunizations up to date, Client reports receiving the 2nd dose of the Covid vaccine, Pneumococcal vaccine status is unknown, Flu vaccine is up to date. - Social history:: Smoking status: Patient denies any tobacco usage or history of. Patient/guardian denies using alcohol, street drugs. - Family history:: pertinent for. ROS: 22:56 Constitutional: Negative for fever, chills, and weight loss, Cardiovascular: Negative sp4 for chest pain, palpitations, positive bilateral lower extremity edema MS/Extremity: Negative for injury and deformity, positive bilateral lower extremity swelling and edema 22:56 All other systems are negative. Exam: 22:56 Constitutional: This is a well developed, well nourished patient who is awake, alert, sp4 and in no acute distress. Head/Face: Normocephalic, atraumatic. Eyes: Pupils equal round and reactive to light, extra-ocular motions intact. Lids and lashes normal. Conjunctiva and sclera are not injected. Cornea within normal limits. Periorbital areas with no swelling, redness, or edema. ENT: Nares patent. No nasal discharge, no septal abnormalities noted. Tympanic membranes are normal and external auditory canals are clear. Oropharynx with no redness, swelling, or masses, exudates, or evidence of obstruction, uvula midline. Mucous membranes moist. Neck: Trachea midline, no thyromegaly or masses palpated, and no cervical lymphadenopathy. Supple, full range of motion without nuchal rigidity, or vertebral point tenderness. Chest/axilla: Normal chest wall appearance and motion. Nontender with no deformity. No lesions are appreciated. Cardiovascular: Regular rate and rhythm with a normal S1 and S2. No gallops, murmurs, or rubs. Normal PMI, no JVD. No pulse deficits. Positive bilateral lower extremity edema with pitting Respiratory: Lungs have equal breath sounds bilaterally, clear to auscultation and percussion. No rales, rhonchi or wheezes noted. No increased work of breathing, no retractions or nasal flaring. Abdomen/GI: Soft, non-tender, with normal bowel sounds. No distension or tympany. No guarding or rebound. No evidence of tenderness throughout. Back: No spinal tenderness. No costovertebral tenderness. Skin: Warm, dry with normal turgor. Normal color with no rashes, no lesions, and no evidence of cellulitis. MS/ Extremity: Pulses equal, no cyanosis. Neurovascular intact. Full, normal range of motion. Positive bilateral lower extremity edema with pitting Neuro: Awake and alert, GCS 15, oriented to person, place, time, and situation. Cranial nerves II-XII grossly intact. Motor strength 5/5 in all extremities. Sensory grossly intact. Psych: Awake, alert, with orientation to person, place and time. Behavior, mood, and affect are within normal limits 22:56 ECG was reviewed by the Attending Physician. There is EKG at 2234 there is normal sinus rhythm at rate of 83, low voltage QRS, no ectopy, no ST elevation or depression, overall normal EKG. Normal intervals Vital Signs: 21:26 BP 152 / 88; Pulse 91; Resp 19 S; Temp 98.3(O); Pulse Ox 99% on R/A; Weight 74.84 kg lg3 (R); Height 5 ft. 2 in. (R); 22:30 BP 137 / 64; Pulse 88; Resp 18; Pulse Ox 98% on R/A; rv 23:00 BP 136 / 65; Pulse 89; Resp 18; Pulse Ox 98% on R/A; rv 12/02 00:00 BP 128 / 66; Pulse 91; Resp 18; Temp 98; Pulse Ox 98% on R/A; rv 12/01 21:26 Body Mass Index 30.18 (74.84 kg, 157.48 cm) lg3 MDM: 12/01 21:56 Patient medically screened. sp4 12/02 00:10 ED course: US - FINDINGS: Right leg veins: Common femoral: normal Greater saphenous: sp4 normal Superficial femoral: normal Popliteal: normal Calf Veins: normal Left leg veins: Common femoral: normal Greater saphenous: normal Superficial femoral: normal Popliteal: normal Calf Veins: normal IMPRESSION: 1. No sonographic evidence for lower extremity deep venous thrombosis in either leg.. ED course: Chest X ray - CLINICAL HISTORY: Hypertension and swelling COMPARISON: 2021 FINDINGS: Chronic elevation right hemidiaphragm The lungs appear clear of acute infiltrate. The heart is normal size IMPRESSION: No acute abnormalities displayed. 00:28 Data reviewed: vital signs, nurses notes, old medical records, lab test result(s), EKG, sp4 radiologic studies, plain films, ultrasound. Consideration of Admission/Observation Escalation of care including admission/observation considered. ED course: Patient is not in acute heart failure, there is no sign of renal failure, there is no sign of DVT. Patient overall is in good health for her age. Patient may benefit from low-dose Lasix once a day for 10 days. For bilateral lower extremity edema. We will also advise follow-up with tapping machine operator in 10 to 14 days for repeat exam and kidney function check. Also patient has mild elevation of blood glucose at 185. Will advise blood glucose check at primary care physician office.. 12/01 22:02 Order name: Basic Metabolic Panel; Complete Time: 00:07 sp4 12/01 22:02 Order name: CBC with Diff; Complete Time: 00:07 sp4 12/01 22:02 Order name: LFT's; Complete Time: 00:07 sp4 12/01 22:02 Order name: Magnesium; Complete Time: 00:07 sp4 12/01 22:02 Order name: NT PRO-BNP; Complete Time: 00:07 sp4 12/01 22:02 Order name: PT-INR; Complete Time: 00:07 sp4 12/01 22:02 Order name: Troponin HS; Complete Time: 00:07 sp4 12/01 22:02 Order name: XRAY Chest (1 view); Complete Time: 22:53 sp4 12/01 22:03 Order name: Extrem Venous W Compression Kadeem US sp4 12/01 22:02 Order name: EKG; Complete Time: 22:03 sp4 12/01 22:02 Order name: Cardiac monitoring; Complete Time: : sp4 12/01 22:02 Order name: EKG - Nurse/Tech; Complete Time: : sp4 12/01 22:02 Order name: IV Saline Lock; Complete Time: : sp4 12/01 22:02 Order name: Labs collected and sent; Complete Time: : sp4 12/01 22:02 Order name: O2 Per Protocol; Complete Time: : sp4 12/01 22:02 Order name: O2 Sat Monitoring; Complete Time: : sp4 EC/30 22:56 Rate is 83 beats/min. Rhythm is regular, Normal Sinus Rhythm. QRS [place] is Normal. [place] sp4 interval is normal. QRS interval is normal. QT interval is normal. No Q waves. T waves are Normal. No ST changes noted. Clinical impression: Normal ECG. Interpreted by me. Administered Medications: No medications were administered Disposition Summary: 12/02/22 00:31 Discharge Ordered Location: Home sp4 Problem: new sp4 Symptoms: are unchanged sp4 Condition: Stable sp4 Diagnosis - Edema, unspecified sp4 - Bilateral lower extremity edema, bilateral lower extremity swelling sp4 - Dependent edema bilateral lower extremity with fluid retention, Elevated blood sp4 glucose Followup: sp4 - With: Private Physician - When: 10 - 14 days - Reason: Recheck today's complaints Discharge Instructions: - Discharge Summary Sheet sp4 - Edema, Bvbh-nh-Wqgr sp4 Forms: - Patient Portal Instructions sp4 - Leadership Thank You Letter sp4 Prescriptions: - Lasix 20 mg Oral Tablet - take 1 tablet by ORAL route once daily for 10 days; 10 tablet; Refills: 0, sp4 Product Selection Permitted Signatures: Dispatcher MedHo Mariangel Catsillo RN RN lg3 Jerry Ocasio MD MD sp4
--- NOTE | 2022-12-02 00:32 | ER ---
Nurse's Notes [facility] Name: Payal Munoz Age: 82 yrs Sex: Female : 1940 Arrival Date: 12/01/2022 Time: 20:59 Bed 17 Private MD: Diagnosis: Edema, unspecified;Bilateral lower extremity edema, bilateral lower extremity swelling;Dependent edema bilateral lower extremity with fluid retention, Elevated blood glucose Presentation: 12/01 21:26 Chief complaint: Patient states: bilateral feet,ankle and calf swelling with redness lg3 and pain for 2-3 weeks. Coronavirus screen: Client denies travel out of the [place] in the last 14 days. At this time, the client does not indicate any symptoms associated with coronavirus-19. Ebola Screen: No symptoms or risks identified at this time. Initial Sepsis Screen: Does the patient meet any 2 criteria? No. Patient's initial sepsis screen is negative. Does the patient have a suspected source of infection? No. Patient's initial sepsis screen is negative. Risk Assessment: Do you want to hurt yourself or someone else? Patient reports no desire to harm self or others. Onset of symptoms is unknown. 21:26 Method Of Arrival: Ambulatory lg3 21:26 Acuity: THI 3 lg3 Triage Assessment: 21:27 General: Appears in no apparent distress. uncomfortable, Behavior is calm, cooperative. lg3 Pain: Complains of pain in right leg and left leg. EENT: No deficits noted. No signs and/or symptoms were reported regarding the EENT system. Neuro: No deficits noted. Morales Agitation-Sedation Scale (RASS): 0 - Alert and Calm Level of Consciousness is awake, alert, obeys commands, Oriented to person, place, time, situation. Cardiovascular: No deficits noted. Denies chest pain, shortness of breath, Capillary refill < 3 seconds Clubbing of nail beds is absent JVD is absent Patient's skin is warm and dry. Respiratory: No deficits noted. Airway is patent Respiratory effort is even, unlabored, Respiratory pattern is regular, symmetrical. GI: No deficits noted. No signs and/or symptoms were reported involving the gastrointestinal system. : No deficits noted. No signs and/or symptoms were reported regarding the genitourinary system. Derm: Skin is intact, is thin, Skin is dry, Skin is normal, Skin temperature is warm reddening to bilateral lower extremities. Musculoskeletal: Circulation, motion, and sensation intact. Range of motion: intact in all extremities, Swelling present in right leg and left leg. Historical: - Allergies: 21:27 No Known Allergies; lg3 - PMHx: 21:27 Hypertension; Rheumatoid Arthritis; lg3 - PSHx: 21:27 hysterectomy; back; bilateral knee replacement; bilateral feet; lg3 - Immunization history:: Adult Immunizations up to date, Client reports receiving the 2nd dose of the Covid vaccine, Pneumococcal vaccine status is unknown, Flu vaccine is up to date. - Social history:: Smoking status: Patient denies any tobacco usage or history of. Patient/guardian denies using alcohol, street drugs. - Family history:: pertinent for. Screenin:41 [facility] ED Fall Risk Assessment (Adult) Score/Fall Risk Level. Abuse screen: Denies iw threats or abuse. Denies injuries from another. Nutritional screening: No deficits noted. Tuberculosis screening: No symptoms or risk factors identified. Assessment: 22:40 General: Appears in no apparent distress. Behavior is calm, cooperative, appropriate iw for age. Pain: Complains of pain in right foot and left foot Quality of pain is described as burning. Neuro: Level of Consciousness is awake, alert, obeys commands, Oriented to person, place, time, situation, Moves all extremities. Full function. Cardiovascular: Patient's skin is warm and dry. Cardiovascular: Edema is 2+ to left ankle, left foot, right ankle and right foot. Respiratory: Respiratory effort is even, unlabored, Respiratory pattern is regular. Derm: Skin is fragile, is thin. Musculoskeletal: Range of motion: intact in all extremities. Vital Signs: 21:26 BP 152 / 88; Pulse 91; Resp 19 S; Temp 98.3(O); Pulse Ox 99% on R/A; Weight 74.84 kg lg3 (R); Height 5 ft. 2 in. (R); 22:30 BP 137 / 64; Pulse 88; Resp 18; Pulse Ox 98% on R/A; rv 23:00 BP 136 / 65; Pulse 89; Resp 18; Pulse Ox 98% on R/A; rv 12/02 00:00 BP 128 / 66; Pulse 91; Resp 18; Temp 98; Pulse Ox 98% on R/A; rv 12/01 21:26 Body Mass Index 30.18 (74.84 kg, 157.48 cm) lg3 ED Course: 12/01 21:04 Patient arrived in ED. cc5 21:27 Triage completed. lg3 21:27 Arm band placed on left wrist. lg3 21:36 Gale Hobbs, RN is Primary Nurse. iw 21:55 Jerry Ocasio MD is Attending Physician. sp4 22:00 Patient has correct armband on for positive identification. Bed in low position. Call rv light in reach. Side rails up X 1. 22:00 Provided Education on: chf. Client placed on continuous cardiac and pulse oximetry rv monitoring. NIBP monitoring applied. awake overnight monitor on. 22:16 XRAY Chest (1 view) In Process Unspecified. EDMS 22:31 Inserted saline lock: 22 gauge in right antecubital area, using aseptic technique. rv Blood collected. Missed attempt(s):. 23:58 Extrem Venous W Compression Kadeem US In Process Unspecified. EDMS 12/02 00:42 No provider procedures requiring assistance completed. IV discontinued, intact, rv bleeding controlled, No redness/swelling at site. Pressure dressing applied. Administered Medications: No medications were administered Medication: 12/01 22:41 VIS not applicable for this client. iw Outcome: 12/02 00:31 Discharge ordered by . sp4 00:42 Discharged to home ambulatory, with family. rv 00:42 Condition: good 00:42 Discharge instructions given to patient, Instructed on discharge instructions, follow up and referral plans. medication usage, Demonstrated understanding of instructions, follow-up care, medications, Prescriptions given X 1. 00:43 Patient left the ED. rv Signatures: Dispatcher [employer] EDNV Gale Hobbs, RN MONIQUE Elier Diggs RN RN rv Mariangel Martinez RN MONIQUE 3 Kya Avila cc Jerry Ocasio MD MD sp4
[2022-12-02 01:05] VITALS: O2SAT 98
[2022-12-02 01:08] VITALS: BP 128/66; TEMP 98
--- NOTE | 2022-12-02 12:03 | EKG ---
Test Date: 2022-12-01 Test Time: 22:34:02 Bench Chemist: JOAN MEASUREMENT RESULTS: Intervals: Rate: 83 MI: 208 QRSD: 86 QT: 380 QTc: 446 [place]: P: 58 MI: 208 QRS: 23 T: 49 INTERPRETIVE STATEMENTS: Normal sinus rhythm Low voltage QRS Borderline ECG Compared to ECG 04/17/2017 12:18:45 Low QRS voltage now present Electronically Signed On 12-02-22 12:02:29 CDT by Isaac Nicholson
--- NOTE | 2022-12-02 16:02 | RAD REPORT ---
EXAM DESCRIPTION: US - Extrem Venous W Compress Kadeem CLINICAL HISTORY: 82 years Female bilateral edema COMPARISON: None TECHNIQUE: Spectral analysis and color/grayscale sonographic images of both legs were obtained utili zing a high-frequency linear array transducer supplemented with color Doppler, compression and augmen tation techniques. FINDINGS: Right leg veins: Common femoral: normal Greater saphenous: normal Superficial femoral: normal Popliteal: normal Calf Veins: normal Left leg veins: Common femoral: normal Greater saphenous: normal Superficial femoral: normal Popliteal: normal Calf Veins: normal IMPRESSION: 1. No sonographic evidence for lower extremity deep venous thrombosis in either leg. Electronically signed by: Juana Haines MD 12/02/2022 12:05 AM CDT Due to temporary technical issues with the PACS/Fluency reporting system, reports are being signed by the in house radiologists without review as a courtesy to insure prompt reporting. The interpreting radiologist is fully responsible for the content of the report.
== END 2022-12-02 00:43 | disposition home or self-care (01) ==
LOC: ER 20:59
DX: R60.0 Localized edema (principal); R73.9 Hyperglycemia, unspecified; I10 Essential (primary) hypertension; Z96.653 Presence of artificial knee joint, bilateral; Z79.01 Long term (current) use of anticoagulants
CPT/HCPCS: 36415; 71045; 80048; 80076; 83735; 83880; 84484; 85025; 85610; 93005; 93970; 99284

== ENCOUNTER 2023-03-10 17:16 | Emergency (ER) | payer OTHER, BC ==
[2023-03-10 18:14] LABS: Hematocrit 36.3 % (36.0-45.0); MCV 96.6 fL (80-100); MPV 9.6 fL (7.6-11.3); Platelets 123 thou/uL (152-406); RBC Red Blood Cell Count 3.76 M/uL (3.86-4.86)
[2023-03-10] MEDS ORDERED: DIPHENHYDRAMINE 50 MG/ML VIAL ONE (18:18)
[2023-03-10] MEDS ORDERED: NA CHLORIDE 0.9% 1,000 ML ONE (18:19)
[2023-03-10] MEDS ORDERED: DIAZEPAM 10 MG/2 ML INJ SYRINGE ONE (18:19)
[2023-03-10 18:28] LABS: Albumin 3.1 g/dL (3.4-5.0); Bilirubin Total 1.4 mg/dL (0.2-1.0); Potassium 3.9 mEq/L (3.5-5.1); Protein, Total 6.6 g/dL (6.4-8.2)
[2023-03-10 18:28] LABS: Urine Bacteria >50 /HPF (<20); Urine Mucus Slight /HPF (None Seen)
[2023-03-10 18:29] LABS: Specific Gravity 1.016 (1.005-1.030); Urine Bilirubin NEGATIVE (Negative); Urine Blood Negative (Negative); Urine Clarity Extremely Turbid (Clear); Urine Color Yellow (Yellow); Urine Glucose NEGATIVE (Negative); Urine Protein NEGATIVE (Negative); Urine Urobilinogen Normal (Normal)
[2023-03-10] MEDS ORDERED: CEFTRIAXONE 1000 MG/VIAL ONE (18:56)
--- NOTE | 2023-03-10 19:15 | RAD REPORT ---
EXAM DESCRIPTION: RADChest Single View03/10/2023 6:30 pm CLINICAL HISTORY: CHEST PAIN COMPARISON: Chest Single View dated 12/01/2022; Chest Pa And Lat (2 Views) dated 05/18/2021; Chest Pa And Lat (2 Views) dated 04/29/2021; Chest Pa And Lat (2 Views) dated 04/17/2017 TECHNIQUE: Portable AP view of the chest. FINDINGS: The lungs show no focal consolidation. Elevation of the right hemidiaphragm again noted. C entral interstitial prominence, progressive since the prior exam. No pneumothorax or effusion. The c ardiomediastinal contours are unremarkable. IMPRESSION: Central interstitial prominence, suggesting mild central congestion/ CHF.
--- NOTE | 2023-03-10 19:33 | RAD REPORT ---
EXAM DESCRIPTION: CT - Head Brain Wo Cont - 03/10/2023 6:39 pm CLINICAL HISTORY: CONFUSED COMPARISON: No comparisons TECHNIQUE: Noncontrast head CT images were obtained without IV contrast. Multiplanar reformats were generated and reviewed. All CT scans are performed using dose optimization technique as appropriate and may include automated exposure control or mA/KV adjustment according to patient size. FINDINGS: Isodense left frontal and parietal convexity subdural hematoma measuring up to 6 millimete r in thickness. No intracranial , mass, or edema. Midline structures are unremarkable. Normal ventricular caliber for age. Cason-white matter differentiation is preserved, without evidence of acute infarct. No abnormal extra- axial fluid collections. Mastoid air cells and visualized portions of the paranasal sinuses are clear. No acute bony findings. IMPRESSION: Isodense, possibly subacute, left frontoparietal subdural hematoma up to 6 millimeter in thickness.
--- NOTE | 2023-03-10 19:50 | EDPHYS ---
Physician Documentation [facility] Name: Payal Munoz Age: 82 yrs Sex: Female : 1940 Arrival Date: 03/10/2023 Time: 17:16 Bed 7 Private MD: ED Physician HPI: 03/10 17:39 This 82 yrs old Female presents to ER via Wheelchair with complaints of AMS. ec2 17:39 Patient arrives today for evaluation of altered mental status. Patient has been acting ec2 altered since yesterday. Patient is confused and does not know where she is, typically has baseline AAO x 4, no reported fevers or chills, no nausea or vomiting, no urinary complaints, no chest pain or difficulty breathing. Patient had a fall approximately 1 week ago. Patient not on blood thinners.. Historical: - Allergies: 17:26 No Known Allergies; iw - PMHx: 17:26 Hypertension; Rheumatoid Arthritis; iw - PSHx: 17:26 back; bilateral feet; bilateral knee replacement; hysterectomy; iw - Immunization history:: Adult Immunizations up to date. - Social history:: Smoking status: Patient denies any tobacco usage or history of. ROS: 17:39 Constitutional: as per hpi ec2 Exam: 17:39 Constitutional: GEN: NAD Head: atraumatic Eyes: EOMI Ears: External ears are ec2 normal. CV: regular rate LUNGS: no respiratory distress ABD: non-distended SKIN: no evidence of rashes MSK: no evidence of trauma NEURO: moves all extremities equally, cranial nerves II through XII intact, strength symmetrical Vital Signs: 17:24 BP 120 / 76; Pulse 81; Resp 17; Temp 97.1; Pulse Ox 97% ; Weight 68.04 kg; Height 5 ft. iw 0 in. ; Pain 0/10; 18:45 BP 146 / 86; Pulse 94; Resp 16; Pulse Ox 100% on R/A; mb9 20:00 BP 118 / 65; Pulse 87; Resp 17; Pulse Ox 97% on R/A; rv 22:00 BP 112 / 60; Pulse 84; Resp 16; Pulse Ox 97% ; vc1 17:24 Body Mass Index 29.29 (68.04 kg, 152.4 cm) iw 17:24 Pain Scale: Adult iw Claire Coma Score: 20:00 Eye Response: spontaneous(4). Motor Response: obeys commands(6). Verbal Response: rv confused(4). Total: 14. MDM: 17:31 Patient medically screened. ec2 17:39 Data reviewed: vital signs. ED course: Patient arrives today for evaluation of altered ec2 mental status. Examination remarkable for confused individual who otherwise has a equal neurologic examination with no focality to it. Will obtain lab work, EKG, urine studies, CT scan of the head. Currently considered process such as intracranial brain bleed, electrolyte or anemia, urinary tract infection, pneumonia.. 17:49 ED course: EKG independently reviewed and interpreted by me, shows normal sinus rhythm, ec2 rate of 88, no acute ST segment elevations, intervals nonconcerning. . 18:34 ED course: CBC is reassuring without evidence of anemia or leukocytosis. Metabolic ec2 profile with appropriate electrolytes. Urine is infectious appearing with leuk esterase and bacteria. Will give antibiotics. . 19:41 ED course: Discussed the case with radiology, CT scan of the head shows concern for ec2 subacute subdural hematoma, this would be consistent with patient's recent fall. Will transfer over to trauma center.. 19:57 ED course: Initially was told no blood thinners however family reports that she is on ec2 Plavix. Will add on coagulation profile.. 20:03 ED course: Discussed the case with Dr. Shanks, neurosurgery at [address] and will transfer to ER. Family updated regarding plan of care.. 12 17:38 Order name: CBC with Diff; Complete Time: 18:33 ec2 03/10 17:38 Order name: CMP; Complete Time: 18:33 ec2 03/10 17:38 Order name: UAM; Complete Time: 18:33 ec2 03/10 18:33 Order name: Urine Culture EDMS 03/10 19:52 Order name: PT-INR ec2 03/10 19:52 Order name: Ptt, Activated ec2 03/10 17:38 Order name: CXR XRAY; Complete Time: 19:40 ec2 03/10 17:38 Order name: CT Head Brain wo Cont; Complete Time: 19:49 ec2 03/10 17:38 Order name: EKG; Complete Time: 17:39 ec2 03/10 17:38 Order name: EKG - Nurse/Tech; Complete Time: 17:50 ec2 Administered Medications: 18:20 Drug: Diazepam IVP 2 mg IVP once Route: IVP; Site: left wrist; mb9 18:20 Drug: NS 0.9% IV 1000 ml IV at 1 bolus Per protocol; 1000 mL bolus Route: IV; Rate: 1 mb9 bolus; Site: left wrist; 18:25 Not Given (Physician Discretion): [id number] mg IVP once mb9 18:44 Drug: Rocephin IV 1 grams IV at calculated rate once; Given slow IV push per pharmacy mb9 instructions Route: IV; Rate: calculated rate; Site: left wrist; 22:05 Drug: Ativan IVP 1 mg IVP once Route: IVP; Site: right forearm; vc1 22:05 Follow up: Administered at transfer vc1 Disposition Summary: 03/10/23 19:50 Transfer Ordered Notes: Transfer Location: Other Acute Care Facility ec2 Reason: Higher level of care ec2 Condition: Stable ec2 Problem: new ec2 Symptoms: are unchanged ec2 Accepting Physician: transferring facility (03/10/23 22:07) vc1 Diagnosis - Traumatic subdural hemorrhage ec2 Forms: - Medication Reconciliation Form ec2 - SBAR form ec2 Critical care time excluding procedures: 20:03 Critical care time: Bedside Care: 30 minutes, Consultation: 5 minutes. Total time: 35 ec2 minutes Signatures: Dispatcher [employer] Gale Nuñez RN RN iw Calcote, Vanessa, RN RN vc1 Diana Ceron RN RN mb9 Corral, Edwin, MD MD ec2 Corrections: (The following items were deleted from the chart) 21:38 19:50 transferring facility ec2 vc1 22:07 21:38 transferring facility vc1 vc1
--- NOTE | 2023-03-10 19:50 | ER ---
Nurse's Notes [facility] Name: Payal Munoz Age: 82 yrs Sex: Female : 1940 Arrival Date: 03/10/2023 Time: 17:16 Bed 7 Private MD: Diagnosis: Traumatic subdural hemorrhage Presentation: 03/10 17:24 Chief complaint: Patient states: Very fatigued, weak, lethargic, confused since iw yesterday, worse today. No fever or cough. No V/D. Some nausea. Coronavirus screen: Vaccine status: Patient reports receiving the 2nd dose of the covid vaccine. Client denies travel out of the [place] in the last 14 days. At this time, the client does not indicate any symptoms associated with coronavirus-19. Ebola Screen: Patient denies travel to an Ebola-affected area in the 21 days before illness onset. Initial Sepsis Screen: Does the patient meet any 2 criteria? No. Patient's initial sepsis screen is negative. Does the patient have a suspected source of infection? Yes:. Risk Assessment: Do you want to hurt yourself or someone else? Patient reports no desire to harm self or others. Onset of symptoms was March 10, 2023. 17:24 Method Of Arrival: Wheelchair iw 17:24 Acuity: THI 2 iw Historical: - Allergies: 17:26 No Known Allergies; iw - PMHx: 17:26 Hypertension; Rheumatoid Arthritis; iw - PSHx: 17:26 back; bilateral feet; bilateral knee replacement; hysterectomy; iw - Immunization history:: Adult Immunizations up to date. - Social history:: Smoking status: Patient denies any tobacco usage or history of. Screenin:50 [facility] ED Fall Risk Assessment (Adult) History of falling in the last 3 months, mb9 including since admission Yes- fall prone (multiple falls) (3 pts) Confusion or Disorientation Yes (5 pts) Intoxicated or Sedated No (0 pts) Impaired Gait No (0 pts) Mobility Assist Device Used No (0 pt) Altered Elimination No (0 pt) Score/Fall Risk Level 0 - 2 = Low Risk Oriented to surroundings, Maintained a safe environment, Educated pt \T\ family on fall prevention, incl call for assistance when getting out of bed. Abuse screen: Denies threats or abuse. Nutritional screening: No deficits noted. Tuberculosis screening: No symptoms or risk factors identified. Assessment: 17:45 General: Appears in no apparent distress. Behavior is restless. Pain: Denies pain. mb9 Neuro: Level of Consciousness is confused, Oriented to person. Cardiovascular: Patient's skin is warm and dry. Respiratory: Airway is patent Respiratory effort is even, unlabored, Respiratory pattern is regular, symmetrical. GI: Abdomen is flat, non-distended, Bowel sounds present X 4 quads. Abd is soft and non tender X 4 quads. : Urine is cloudy. EENT: No signs and/or symptoms were reported regarding the EENT system. Derm: Skin is pink, warm \T\ dry. Musculoskeletal: Range of motion: intact in all extremities. 18:46 Reassessment: No changes from previously documented assessment. Patient and/or family mb9 updated on plan of care and expected duration. Pain level reassessed. 20:21 Reassessment: No changes from previously documented assessment. Patient and/or family vc1 updated on plan of care and expected duration. Pain level reassessed. 22:05 Reassessment: Pt straight cathed in ambulance before being transferred. vc1 Vital Signs: 17:24 BP 120 / 76; Pulse 81; Resp 17; Temp 97.1; Pulse Ox 97% ; Weight 68.04 kg; Height 5 ft. iw 0 in. ; Pain 0/10; 18:45 BP 146 / 86; Pulse 94; Resp 16; Pulse Ox 100% on R/A; mb9 20:00 BP 118 / 65; Pulse 87; Resp 17; Pulse Ox 97% on R/A; rv 22:00 BP 112 / 60; Pulse 84; Resp 16; Pulse Ox 97% ; vc1 17:24 Body Mass Index 29.29 (68.04 kg, 152.4 cm) iw 17:24 Pain Scale: Adult iw Claire Coma Score: 20:00 Eye Response: spontaneous(4). Motor Response: obeys commands(6). Verbal Response: rv confused(4). Total: 14. ED Course: 17:19 Patient arrived in ED. im 17:26 Triage completed. iw 17:26 Arm band placed on. iw 17:28 Nolan Durán MD is Attending Physician. ec2 17:31 Diana Ceron RN is Primary Nurse. mb9 17:50 CMP Sent. mb9 17:50 CBC with Diff Sent. mb9 17:50 EKG done, by ED staff, reviewed by Nolan Durán MD. mb9 17:50 Missed attempt(s): 22 gauge in right forearm. mb9 17:51 Placed in gown. Bed in low position. Call light in reach. Side rails up X 1. Client mb9 placed on continuous cardiac and pulse oximetry monitoring. NIBP monitoring applied. family practice doctor on. 18:05 Initial lab(s) drawn, by sc, sent to lab. Inserted saline lock: 24 gauge in left wrist, mb4 using aseptic technique. 18:20 UAM Sent. mb9 18:32 CXR XRAY In Process Unspecified. EDMS 18:41 CT Head Brain wo Cont In Process Unspecified. EDMS 18:47 No provider procedures requiring assistance completed. mb9 19:05 Report given to Alexys RN. mb9 19:58 Initiated transfer to [facility], spoke with Payal Lee, connected with Dr. wm Durán immediately. 20:04 Pt accepted for transfer to [facility] ER by Davon Oliver per Payal Lee. wm 20:11 Inserted saline lock: 20 gauge in right hand, using aseptic technique. rv 20:45 [facility] accepted for transport with an ETA \T\ 2100. wm 21:37 Patient transferred, IV remains in place. vc1 21:39 Primary Nurse role handed off by Diana Ceron RN vc1 21:39 Attending Physician role handed off by Nolan Durán MD vc1 Administered Medications: 18:20 Drug: Diazepam IVP 2 mg IVP once Route: IVP; Site: left wrist; mb9 18:20 Drug: NS 0.9% IV 1000 ml IV at 1 bolus Per protocol; 1000 mL bolus Route: IV; Rate: 1 mb9 bolus; Site: left wrist; 18:25 Not Given (Physician Discretion): [id number] mg IVP once mb9 18:44 Drug: Rocephin IV 1 grams IV at calculated rate once; Given slow IV push per pharmacy mb9 instructions Route: IV; Rate: calculated rate; Site: left wrist; 22:05 Drug: Ativan IVP 1 mg IVP once Route: IVP; Site: right forearm; vc1 22:05 Follow up: Administered at transfer vc1 Medication: 18:47 VIS not applicable for this client. mb9 Intake: Outcome: 19:50 ER care complete, transfer ordered by . ec2 21:37 Transferred by ground EMS to [facility], Transfer form completed. X-rays sent vc1 w/ patient. 21:37 Condition: good 21:37 Instructed on the need for transfer, 21:38 Patient left the ED. vc1 22:07 Patient left the ED. vc1 Addendum: 03/14/2023 11:07 Addendum: Culture Results: Positive urine culture. Phone call Attempt #1 VOICEMAIL frank lowery [phone]. 12:07 Addendum: Culture Results: Positive urine culture. Phone call Attempt #2 Spoke to frank lowery daughter, pt transferred from [facility] to [facility]. Faxed culture report to [facility] attn: Sybil , fax confirmation page attached to paper reports. Signatures: Dispatcher [employer] Gale Nuñez RN RN Radha Gold RN MONIQUE Elier Diggs RN Shyla Mcmillan mb4 Leah Castaneda Genevieve Preciado RN RN vc1 Diana Ceron RN RN mb9 Myah De Los Santos Edwin, MD MD ec2 Corrections: (The following items were deleted from the chart) 03/10 20:04 19:58 Initiated transfer to [facility], spoke with Payal Lee, connected wm with Dr. Durán immediatdly 20:39 20:00 GCS: 15, rv rv
[2023-03-10 20:17] LABS: Protime INR 1.92
[2023-03-10] MEDS ORDERED: LORazepam 2 MG/ML VIAL ONE (21:56)
[2023-03-10 22:05] VITALS: TEMP 97.1
[2023-03-10 22:07] VITALS: O2SAT 97
[2023-03-10 22:37] VITALS: BP 112/60
--- NOTE | 2023-03-15 14:02 | EKG ---
Test Date: 2023-03-10 Test Time: 17:42:42 Interlocking Machine Operator: MB MEASUREMENT RESULTS: Intervals: Rate: 88 MT: 196 QRSD: 86 QT: 402 QTc: 486 [place]: P: 86 MT: 196 QRS: 42 T: 58 INTERPRETIVE STATEMENTS: Normal sinus rhythm Anterior infarct, age undetermined Abnormal ECG Compared to ECG 12/01/2022 22:34:02 Myocardial infarct finding now present Electronically Signed On 03-15-23 13:45:39 ANIMAL HUMANE AGENT SUPERVISOR by Isaac Nicholson
== END 2023-03-10 22:07 ==
LOC: ER 17:16
DX: S06.5X0A Traumatic subdural hemorrhage without loss of consciousness, initial encounter (principal); I10 Essential (primary) hypertension; Z96.653 Presence of artificial knee joint, bilateral
CPT/HCPCS: 93005; 87088; 85025; 81001; 87086; 36415; 85610; 85730; 87077; 87186; 80053; 70450; 71045; 99285; J1200; J3360; J7030; J0696

== ENCOUNTER → 2023-06-29 | Emergency (ER) | payer OTHER, BC ==
[~2023-06-29] MED LIST: LIDOCAINE 1% MPF 5 ML VIAL ONE
--- NOTE | 2023-06-29 09:55 | ER ---
Nurse's Notes [facility] Name: Payal Munoz Age: 83 yrs Sex: Female : 1940 Arrival Date: 06/29/2023 Time: 08:13 Bed 16 Private MD: Quinn Floyd V Diagnosis: Abscess left upper eyelid Presentation: 06/28 08:46 Chief complaint: Patient states: Pt reports increased redness and swelling to left eye kb3 x1 week. Coronavirus screen: Vaccine status: Patient reports receiving the 2nd dose of the covid vaccine. Client denies travel out of the [place] in the last 14 days. Ebola Screen: Patient negative for fever greater than or equal to 101.5 degrees Fahrenheit, and additional compatible Ebola Virus Disease symptoms Patient denies exposure to infectious person. Patient denies travel to an Ebola-affected area in the 21 days before illness onset. Initial Sepsis Screen: Does the patient meet any 2 criteria? No. Patient's initial sepsis screen is negative. Does the patient have a suspected source of infection? No. Patient's initial sepsis screen is negative. Risk Assessment: Do you want to hurt yourself or someone else? Patient reports no desire to harm self or others. Onset of symptoms was June 23, 2023. 08:46 Method Of Arrival: Ambulatory kb3 08:46 Acuity: THI 3 kb3 Triage Assessment: 08:48 General: Appears in no apparent distress. comfortable, Behavior is calm, cooperative. kb3 Pain: Complains of pain in left eye Pain does not radiate. Pain currently is 8 out of 10 on a pain scale. EENT: Eyes are tearing on left upper eyelid Sclera/Cornea are reddened in outer aspect of conjuctiva of left eye and inner aspect of conjunctiva of left eye Lid(s) w/ stye noted left upper eyelid Reports blurred vision in outer aspect of conjuctiva of left eye, iris of left eye and inner aspect of conjunctiva of left eye. 08:50 General: Appears in no apparent distress. comfortable, Behavior is calm, cooperative, ld1 appropriate for age. Pain: Denies pain. EENT: abscess to left eye lid.. Neuro: Level of Consciousness is awake, alert, obeys commands, Oriented to person, place, time, situation. Cardiovascular: Capillary refill < 3 seconds Patient's skin is warm and dry. Respiratory: Airway is patent Respiratory effort is even, unlabored. GI: Abdomen is flat, non-distended. : No signs and/or symptoms were reported regarding the genitourinary system. Derm: No signs and/or symptoms reported regarding the dermatologic system. Musculoskeletal: No signs and/or symptoms reported regarding the musculoskeletal system. Historical: - Allergies: 08:48 No Known Allergies; kb3 - Home Meds: 08:48 duloxetine 60 mg Oral cpDR 1 cap once daily [Active]; Probiotic Oral [Active]; kb3 Famotidine Oral [Active]; spironolacton-hydrochlorothiaz 25-25 mg Oral tablet [Active]; - PMHx: 08:52 Rheumatoid Arthritis; kb3 - PSHx: 08:52 back; bilateral feet; bilateral knee replacement; hysterectomy; bilateral lens kb3 replacement (hysterectomy); - Immunization history:: Adult Immunizations up to date, Client reports receiving the 2nd dose of the Covid vaccine. - Social history:: Smoking status: Patient denies any tobacco usage or history of. - Family history:: not pertinent. - Hospitalizations: : No recent hospitalization is reported. Screenin:51 [facility] ED Fall Risk Assessment (Adult) History of falling in the last 3 months, ld1 including since admission No falls in past 3 months (0 pts). Abuse screen: Denies threats or abuse. Denies injuries from another. Nutritional screening: No deficits noted. Tuberculosis screening: No symptoms or risk factors identified. Assessment: 08:51 Reassessment: See triage assessment. ld1 Vital Signs: 08:46 BP 143 / 65; Pulse 87; Resp 18; Temp 97.2; Pulse Ox 98% ; Weight 61.23 kg; Height 5 ft. kb3 1 in. ; Pain 8/10; 08:51 BP 129 / 64; Pulse 82; Resp 18; Pulse Ox 99% on R/A; ld1 09:36 BP 132 / 63; Pulse 85; Resp 18; Pulse Ox 98% on R/A; ld1 08:46 Body Mass Index 25.51 (61.23 kg, 154.94 cm) kb3 08:46 Pain Scale: Adult kb3 ED Course: 08:14 Patient arrived in ED. rg4 08:14 Quinn Floyd MD is Private Physician. rg4 08:25 Herman Nguyen MD is Attending Physician. rn 08:48 Triage completed. kb3 08:50 Shikha Gómez, RN is Primary Nurse. ld1 08:50 Arm band placed on right wrist. ld1 08:51 Patient has correct armband on for positive identification. Placed in gown. Bed in low ld1 position. Call light in reach. Side rails up X2. bus monitor on. Pulse ox on. NIBP on. Door closed. Noise minimized. Warm blanket given. 08:51 No provider procedures requiring assistance completed. ld1 10:10 Provided Education on: follow up \E\. ld1 10:10 Patient did not have IV access during this emergency room visit. ld1 Administered Medications: 09:29 Drug: Lidocaine Infiltration (1 %) 1 vials 5 ml Infiltration once; to bedside {Note: ld1 Administered by Dr. Nguyne.} Volume: 5 ml; Route: Infiltration; Medication: 08:51 VIS not applicable for this client. ld1 Outcome: 09:55 Discharge ordered by . rn 10:10 Discharged to home ambulatory, ld1 10:10 Condition: stable 10:10 Discharge instructions given to patient, family, Instructed on discharge instructions, follow up and referral plans. Demonstrated understanding of instructions, follow-up care, 10:10 Patient left the ED. ld1 Signatures: Herman Nguyen MD MD rn Garcia, Rubi rg4 Shikha Gómez, RN RN ld1 Lenore Jacob, RN RN kb3
--- NOTE | 2023-06-29 09:55 | EDPHYS ---
Physician Documentation [facility] Name: Payal Munoz Age: 83 yrs Sex: Female : 1940 Arrival Date: 06/29/2023 Time: 08:13 Bed 16 Private MD: Quinn Floyd V ED Physician Herman Nguyen HPI: 06/28 09:52 This 83 yrs old Female presents to ER via Ambulatory with complaints of Eye Problem. rn 09:52 The patient is experiencing pain, redness, The patient sustained None. to the left eye. rn Onset: The symptoms/episode began/occurred 1 week(s) ago. Duration: the symptoms are continuous. Aggravated by nothing. Alleviated by nothing. Severity of symptoms: At their worst the symptoms were moderate in the emergency department the symptoms are unchanged. Patient reports left eyelid swelling and pain that has gotten worse over the last week. Put on tobramycin by residential program director. No trauma. No fever.. Historical: - Allergies: 08:48 No Known Allergies; kb3 - Home Meds: 08:48 duloxetine 60 mg Oral cpDR 1 cap once daily [Active]; Probiotic Oral [Active]; kb3 Famotidine Oral [Active]; spironolacton-hydrochlorothiaz 25-25 mg Oral tablet [Active]; - PMHx: 08:52 Rheumatoid Arthritis; kb3 - PSHx: 08:52 back; bilateral feet; bilateral knee replacement; hysterectomy; bilateral lens kb3 replacement (hysterectomy); - Immunization history:: Adult Immunizations up to date, Client reports receiving the 2nd dose of the Covid vaccine. - Social history:: Smoking status: Patient denies any tobacco usage or history of. - Family history:: not pertinent. - Hospitalizations: : No recent hospitalization is reported. ROS: 09:52 Constitutional: Negative for fever, chills, and weight loss, Eyes: Positive for left rn eyelid swelling and abscess Exam: 09:52 Constitutional: This is a well developed, well nourished patient who is awake, alert, rn and in no acute distress. Eyes: Positive for 1 cm left upper eyelid abscess with erythema. No periorbital erythema or warmth. Vital Signs: 08:46 BP 143 / 65; Pulse 87; Resp 18; Temp 97.2; Pulse Ox 98% ; Weight 61.23 kg; Height 5 ft. kb3 1 in. ; Pain 8/10; 08:51 BP 129 / 64; Pulse 82; Resp 18; Pulse Ox 99% on R/A; ld1 09:36 BP 132 / 63; Pulse 85; Resp 18; Pulse Ox 98% on R/A; ld1 08:46 Body Mass Index 25.51 (61.23 kg, 154.94 cm) kb3 08:46 Pain Scale: Adult kb3 Procedures: 09:52 I \T\ D: Incision and drainage was performed for an abscess of the left Upper eyelid rn Prepped with Betadine, Anesthetized with 1 ml's 1% Lidocaine. Incised with 18-gauge needle. Drained moderate amount purulent fluid. Dressing: sterile 4x4 gauze, the patient tolerated the procedure well. MDM: 08:25 Patient medically screened. rn 09:52 Differential diagnosis: Abscess. Data reviewed: vital signs, nurses notes, and as a rn result, I will discharge patient. Counseling: I had a detailed discussion with the patient and/or guardian regarding the historical points, exam findings, and any diagnostic results supporting the discharge/admit diagnosis, the need for outpatient follow up, to return to the emergency department if symptoms worsen or persist or if there are any questions or concerns that arise at home. Response to treatment: the patient's symptoms have markedly improved after treatment. Special discussion: I discussed with the patient/guardian in detail that at this point there is no indication for admission to the hospital. It is understood, however, that if the symptoms persist or worsen the patient needs to return immediately for re-evaluation. ED course: Patient already discussed case with her residential program director, has appointment tomorrow and residential program director called in prescription for Bactrim. Feels much better after incision and drainage, all pus evacuated.. Administered Medications: 09:29 Drug: Lidocaine Infiltration (1 %) 1 vials 5 ml Infiltration once; to bedside {Note: ld1 Administered by Dr. Nguyen.} Volume: 5 ml; Route: Infiltration; Disposition Summary: 06/29/23 09:55 Discharge Ordered Notes: Location: Home rn Problem: new rn Symptoms: have improved rn Condition: Stable rn Diagnosis - Abscess left upper eyelid rn Followup: rn - With: Private Physician - When: Tomorrow - Reason: Recheck today's complaints, Re-evaluation by your physician Discharge Instructions: - Discharge Summary Sheet rn - Skin Abscess rn Forms: - Medication Reconciliation Form rn - Thank You Letter rn - Antibiotic belt turner - Prescription Opioid Use rn - Patient Portal Instructions rn - Leadership Thank You Letter rn Signatures: Herman Nguyen MD MD rn Sims, Lauren, RN RN ld1 Lenore Jacob RN RN kb3
[2023-06-29 10:39] VITALS: BP 132/63; TEMP 97.2; O2SAT 98
== END ==
LOC: ER 08:13
PROC: 089PXZZ Drainage of Left Upper Eyelid, External Approach (ICD-10-PCS; principal; 2023-06-29)
DX: H00.034 Abscess of left upper eyelid (principal)
CPT/HCPCS: 67700; J2001

== ENCOUNTER 2023-07-03 08:23 | Emergency (ER) | payer OTHER, BC ==
--- NOTE | 2023-07-03 09:15 | RAD REPORT ---
EXAM DESCRIPTION: RAD - Pelvis - 07/03/2023 9:08 am CLINICAL HISTORY: trauma/fall COMPARISON: Hip Right 2 View dated 07/03/2023 FINDINGS/IMPRESSION: Impacted subcapital right femoral neck fracture. No pelvic fracture identified. Degenerative changes of both acetabula an in the lower spine.
--- NOTE | 2023-07-03 09:16 | RAD REPORT ---
EXAM DESCRIPTION: RAD - Hip Right 2 View - 07/03/2023 9:08 am CLINICAL HISTORY: trauma/fall COMPARISON: Pelvis dated 07/03/2023 FINDINGS/IMPRESSION: Impacted right subcapital femoral neck fracture is suspected. No other fracture s identified. No dislocation. Mild right acetabular degenerative changes.
--- NOTE | 2023-07-03 09:22 | ER ---
Nurse's Notes [facility] Name: Payal Munoz Age: 83 yrs Sex: Female : 1940 Arrival Date: 07/03/2023 Time: 08:23 Bed 7 Private MD: Diagnosis: Right hip fracture, mechanical fall Presentation: 07/02 08:25 Chief complaint: EMS states: MECHANICAL FALL AT HOME, NO LOC. Coronavirus screen: At bp this time, the client does not indicate any symptoms associated with coronavirus-19. Ebola Screen: No symptoms or risks identified at this time. Initial Sepsis Screen: Does the patient meet any 2 criteria? HR > 90 bpm. No. Patient's initial sepsis screen is negative. Does the patient have a suspected source of infection? No. Patient's initial sepsis screen is negative. Risk Assessment: Do you want to hurt yourself or someone else? Patient reports no desire to harm self or others. Note R HIP PAIN, NO CREPITUS/DEFORMITY. Onset of symptoms was July 03, 2023 at 08:00. Care prior to arrival: Medication(s) given: 4MG ZOFRAN IVP, 100 MCG FENTANYL IVP IV initiated. 20 GA, in the left forearm. 08:25 Method Of Arrival: EMS: [facility] bp 08:25 Acuity: THI 3 bp Triage Assessment: 08:27 General: Appears uncomfortable, Behavior is calm, cooperative, appropriate for age. bp Pain: Complains of pain in right hip. Historical: - Allergies: 08: No Known Allergies; bp - Home Meds: 08: Advil 200 mg Oral tab 1 tab every 4 hours [Active]; allopurinol 300 mg Oral tab 1 tab bp once daily [Active]; amlodipine 5 mg tab 1 tab once daily [Active]; duloxetine 60 mg Oral cpDR 1 cap once daily [Active]; Famotidine Oral [Active]; gabapentin 100 mg Oral cap 1 caps twice a day [Active]; zolpidem 12.5 mg Oral TbMP 1 tab once daily [Active]; spironolacton-hydrochlorothiaz 25-25 mg Oral tablet [Active]; quetiapine 100 mg Oral tab 1 tab bedtime [Active]; leflunomide 20 mg Oral tab 1 tab once daily [Active]; - PMHx: 08:27 Hypertension; Rheumatoid Arthritis; bp - PSHx: 08:27 back; bilateral feet; bilateral knee replacement; hysterectomy; Bilateral lens bp replacement (ec); - Immunization history:: Adult Immunizations up to date. - Social history:: Smoking status: Patient denies any tobacco usage or history of. Screenin:30 [facility] ED Fall Risk Assessment (Adult) History of falling in the last 3 months, bp including since admission Yes- single mechanical fall (1 pt) Confusion or Disorientation No (0 pts) Intoxicated or Sedated No (0 pts) Impaired Gait No (0 pts) Mobility Assist Device Used No (0 pt) Altered Elimination No (0 pt) Score/Fall Risk Level 0 - 2 = Low Risk Oriented to surroundings. Abuse screen: Denies threats or abuse. Denies injuries from another. Nutritional screening: No deficits noted. Tuberculosis screening: No symptoms or risk factors identified. Assessment: 08:29 General: SEE TRIAGE NOTE. bp 08:29 General: Appears in no apparent distress. uncomfortable, Behavior is calm, cooperative, ld1 appropriate for age. Pain: Complains of pain in right hip and right leg Pain does not radiate. Pain currently is 8 out of 10 on a pain scale. Quality of pain is described as throbbing, Pain began suddenly, Is continuous. Neuro: Level of Consciousness is awake, alert, obeys commands, Oriented to person, place, time, situation. Cardiovascular: Capillary refill < 3 seconds Patient's skin is warm and dry. Respiratory: Airway is patent Respiratory effort is even, unlabored. GI: Abdomen is flat, non-distended. : No signs and/or symptoms were reported regarding the genitourinary system. EENT: No signs and/or symptoms were reported regarding the EENT system. Derm: No signs and/or symptoms reported regarding the dermatologic system. Musculoskeletal: No signs and/or symptoms reported regarding the musculoskeletal system. 11:00 Reassessment: REPORT TO MARRY AMAYA AT [facility] ER. bp 11:35 Reassessment: EMS AT B/S FOR TRANSPORT. bp Vital Signs: 08:25 BP 132 / 67; Pulse 100; Resp 16; Temp 98; Pulse Ox 98% ; bp 08:29 BP 135 / 61; Pulse 100; Resp 18; Pulse Ox 90% on R/A; ld1 11:00 BP 115 / 88; Pulse 88; Resp 16; Pulse Ox 95% ; bp ED Course: 08:25 Patient arrived in ED. bp 08:25 Domingo Pat MD is Attending Physician. sp3 08:27 Triage completed. bp 08:27 Shikha Gómez, RN is Primary Nurse. ld1 08:27 Arm band placed on. bp 08:29 medical resident on. Pulse ox on. NIBP on. Door closed. Noise minimized. Warm blanket ld1 given. 08:29 No provider procedures requiring assistance completed. ld1 08:30 Patient has correct armband on for positive identification. Bed in low position. Call bp light in reach. 08:30 Maintain EMS IV. Dressing intact. Good blood return noted. Site clean \T\ dry. Gauge \T\ bp site: 20 GA LEFT FA. 09:10 Hip Right 2 View XRAY In Process Unspecified. EDMS 09:10 Pelvis XRAY In Process Unspecified. EDMS 09:40 CMP Sent. bp 09:40 CBC with Diff Sent. bp 09:40 PT-INR Sent. bp 09:54 Hip Right Wo Con In Process Unspecified. EDMS 10:14 initiated a transfer with Alla from the [facility]. 10:45 administrative approval given by Alla Lawson Rn/ patient has been accepted to [facility] ER/ Dr. Last Rod has accepted the patient in transfer without conference with Dr. Pat/ report to be called to [phone]. 11:01 Provided Education on: N/A. bp 11:01 Patient transferred, IV remains in place. bp Administered Medications: 09:40 Drug: morphine IVP or IV 2 mg IVP once over 4 mins Route: IVP; Infused Over: 4 mins; bp Site: left forearm; 11:02 Follow up: Response: No adverse reaction bp 09:40 Drug: Ondansetron IVP 4 mg IVP once; over 2 minutes Route: IVP; Site: left forearm; bp 11:02 Follow up: Response: No adverse reaction bp 11:32 Drug: morphine IVP or IV 2 mg IVP once over 4 mins Route: IVP; Infused Over: 4 mins; bp Site: left forearm; 11:35 Follow up: Response: No adverse reaction bp Medication: 11:01 VIS not applicable for this client. bp Outcome: 09:21 ER care complete, transfer ordered by sp3 11:01 Transferred by ground EMS to [facility], Transfer form completed. bp 11:01 Condition: stable 11:01 Instructed on the need for transfer, 11:35 Patient left the ED. bp Signatures: Dispatcher [employer] EDJimenez Tenorio RN RN Yoli Austin Lauren, RN RN ld1 Domingo Pat MD MD sp3 Corrections: (The following items were deleted from the chart) 08:30 08:30 [facility] ED Fall Risk Assessment (Adult) History of falling in the last 3 months, bp including since admission No falls in past 3 months (0 pts) bp
--- NOTE | 2023-07-03 09:22 | EDPHYS ---
Physician Documentation [facility] Name: Payal Munoz Age: 83 yrs Sex: Female : 1940 Arrival Date: 07/03/2023 Time: 08:23 Bed 7 Private MD: ED Physician Domingo Pat HPI: 07/02 08:40 This 83 yrs old Female presents to ER via EMS with complaints of Hip Pain. sp3 08:40 83-year-old female with history of hypertension, diabetes, rheumatoid arthritis sp3 presents with right hip pain secondary to mechanical ground-level fall she sustained yesterday while ambulating. She denies any other injury including back pain, headache, head injury, neck pain, chest pain, or any other extremity pain. She was able to get up and get into bed however the pain continues and so she activated EMS and presents to the ED here this morning. ROS otherwise negative.. Historical: - Allergies: 08:27 No Known Allergies; bp - Home Meds: 08:27 Advil 200 mg Oral tab 1 tab every 4 hours [Active]; allopurinol 300 mg Oral tab 1 tab bp once daily [Active]; amlodipine 5 mg tab 1 tab once daily [Active]; duloxetine 60 mg Oral cpDR 1 cap once daily [Active]; Famotidine Oral [Active]; gabapentin 100 mg Oral cap 1 caps twice a day [Active]; zolpidem 12.5 mg Oral TbMP 1 tab once daily [Active]; spironolacton-hydrochlorothiaz 25-25 mg Oral tablet [Active]; quetiapine 100 mg Oral tab 1 tab bedtime [Active]; leflunomide 20 mg Oral tab 1 tab once daily [Active]; - PMHx: 08:27 Hypertension; Rheumatoid Arthritis; bp - PSHx: 08:27 back; bilateral feet; bilateral knee replacement; hysterectomy; Bilateral lens bp replacement (ec); - Immunization history:: Adult Immunizations up to date. - Social history:: Smoking status: Patient denies any tobacco usage or history of. ROS: 08:41 Constitutional: Negative for fever, chills, and weight loss, Eyes: Negative for injury, sp3 pain, redness, and discharge, ENT: Negative for injury, pain, and discharge, Neck: Negative for injury, pain, and swelling, Cardiovascular: Negative for chest pain, palpitations, and edema, Respiratory: Negative for shortness of breath, cough, wheezing, and pleuritic chest pain, Abdomen/GI: Negative for abdominal pain, nausea, vomiting, diarrhea, and constipation, Back: Negative for injury and pain, Skin: Negative for injury, rash, and discoloration, Neuro: Negative for headache, weakness, numbness, tingling, and seizure, Psych: Negative for depression, anxiety, suicide ideation, homicidal ideation, and hallucinations, Allergy/Immunology: Negative for hives, rash, and allergies, Endocrine: Negative for neck swelling, polydipsia, polyuria, polyphagia, and marked weight changes, Hematologic/Lymphatic: Negative for swollen nodes, abnormal bleeding, and unusual bruising, 08:41 All other systems are negative, Exam: 08:43 Constitutional: This is a well developed, well nourished patient who is awake, alert, sp3 and in no acute distress. Head/Face: Normocephalic, atraumatic. Eyes: Pupils equal round and reactive to light, extra-ocular motions intact. Lids and lashes normal. Conjunctiva and sclera are non-icteric and not injected. Cornea within normal limits. Periorbital areas with no swelling, redness, or edema. Neck: Trachea midline, no thyromegaly or masses palpated, and no cervical lymphadenopathy. Supple, full range of motion without nuchal rigidity, or vertebral point tenderness. No Meningismus. Chest/axilla: Normal chest wall appearance and motion. Nontender with no deformity. No lesions are appreciated. Cardiovascular: Regular rate and rhythm with a normal S1 and S2. No gallops, murmurs, or rubs. Normal PMI, no JVD. No pulse deficits. Respiratory: Lungs have equal breath sounds bilaterally, clear to auscultation and percussion. No rales, rhonchi or wheezes noted. No increased work of breathing, no retractions or nasal flaring. Abdomen/GI: Soft, non-tender, with normal bowel sounds. No distension or tympany. No guarding or rebound. No evidence of tenderness throughout. Skin: Warm, dry with normal turgor. Normal color with no rashes, no lesions, and no evidence of cellulitis. Neuro: Awake and alert, GCS 15, oriented to person, place, time, and situation. Cranial nerves II-XII grossly intact. Motor strength 5/5 in all extremities. Sensory grossly intact. Cerebellar exam normal. Normal gait. Psych: Awake, alert, with orientation to person, place and time. Behavior, mood, and affect are within normal limits. 08:43 Musculoskeletal/extremity: Pain to right lateral hip and on axial load. No shortening or external rotation noted. Neurovascular exam distally is normal.. Vital Signs: 08:25 BP 132 / 67; Pulse 100; Resp 16; Temp 98; Pulse Ox 98% ; bp 08:29 BP 135 / 61; Pulse 100; Resp 18; Pulse Ox 90% on R/A; ld1 11:00 BP 115 / 88; Pulse 88; Resp 16; Pulse Ox 95% ; bp MDM: 08:25 Patient medically screened. sp3 08:43 Data reviewed: vital signs, nurses notes, radiologic studies. ED course: Differential sp3 diagnosis includes right hip contusion versus hip fracture versus pelvis fracture. Workup will include initially pelvis x-ray and right hip x-ray with further orders as indicated.. 09:19 ED course: Right femoral neck impacted fracture. Laboratory values including coags and sp3 pain medication ordered. Patient will be transferred to appropriate facility with orthopedic coverage.. 07/02 09:19 Order name: CBC with Diff; Complete Time: 09:59 sp3 07/02 09:19 Order name: CMP; Complete Time: 09:59 sp3 07/02 09:19 Order name: PT-INR; Complete Time: 09:59 sp3 07/02 08:26 Order name: Hip Right 2 View XRAY; Complete Time: 09:18 sp3 07/02 08:26 Order name: Pelvis XRAY; Complete Time: 09:18 sp3 07/02 09:30 Order name: Hip Right Wo Con; Complete Time: 10:10 EDMS 07/02 08:26 Order name: NPO; Complete Time: 08:27 sp3 07/02 09:19 Order name: IV Saline Lock; Complete Time: 09:40 sp3 07/02 09:19 Order name: Labs collected and sent; Complete Time: 09:40 sp3 Administered Medications: 09:40 Drug: morphine IVP or IV 2 mg IVP once over 4 mins Route: IVP; Infused Over: 4 mins; bp Site: left forearm; 11:02 Follow up: Response: No adverse reaction bp 09:40 Drug: Ondansetron IVP 4 mg IVP once; over 2 minutes Route: IVP; Site: left forearm; bp 11:02 Follow up: Response: No adverse reaction bp 11:32 Drug: morphine IVP or IV 2 mg IVP once over 4 mins Route: IVP; Infused Over: 4 mins; bp Site: left forearm; 11:35 Follow up: Response: No adverse reaction bp Disposition Summary: 07/03/23 09:21 Transfer Ordered Notes: Reason: Higher level of care sp3 Condition: Stable sp3 Problem: an acute exacerbation sp3 Symptoms: have worsened sp3 Transfer Location: [facility](07/03/23 11:00) eb Accepting Physician: Dr. Last Rod(07/03/23 11:35) bp Diagnosis - Right hip fracture, mechanical fall sp3 Forms: - Medication Reconciliation Form sp3 - SBAR form sp3 Signatures: Dispatcher [employer] EDJimenez Tenorio RN RN bp Botello, Elizabeth eb Patel, Setul, MD MD sp3 Corrections: (The following items were deleted from the chart) 08:26 08:26 Hip Right 2 View+RAD.RAD.BRZ ordered. EDMS EDMS 08:26 08:26 Pelvis+RAD.RAD.BRZ ordered. EDMS EDMS 09:19 09:19 CBC+H.LAB.BRZ ordered. EDMS EDMS 09:19 09:19 COMPREHENSIVE METABOLIC PANEL+C.LAB.BRZ ordered. EDMS EDMS 09:19 09:19 PROTIME (+INR)+COAG.LAB.BRZ ordered. EDMS EDMS 11:00 09:21 [facility] TBD sp3 eb 11:00 09:21 [facility] sp3 eb 11:35 11:00 Dr. Last Rod eb bp
[2023-07-03] MEDS ORDERED: MORPHINE 2 MG/ML SYR ONE ×2 (09:32→11:30)
[2023-07-03] MEDS ORDERED: ONDANSETRON 4 MG/2 ML VIAL ONE (09:32)
[2023-07-03 09:37] LABS: Absolute Basophils 0.1 K/uL (0-0.5); Absolute Lymphocytes (CBC) 0.6 K/uL (0.7-4.9); Absolute Monocytes 0.8 K/uL (0.1-1.3); Absolute Neutrophil 4.4 K/uL (1.8-8.0); Eosinophils % 0.3 % (0-4.4); Hematocrit 30.7 % (36.0-45.0); Hemoglobin 10.7 g/dL (12.0-15.0); MCH 33.3 pg (27.0-35.0); MCHC 34.8 g/dL (32.0-36.0); MCV 95.8 fL (80-100); MPV 8.3 fL (7.6-11.3); Monocytes % 13.2 % (3.3-12.3); Neutrophils % 75.5 % (41.7-73.7); Nucleated Red Blood Cells % 0.1 % (0-0); Platelets 126 thou/uL (152-406); RBC Red Blood Cell Count 3.21 M/uL (3.86-4.86); Red Cell Distribution Width 13.9 % (12.1-15.2)
[2023-07-03 09:44] LABS: PT Prothrombin Time 18.2 SECONDS (9.5-12.5); Protime INR 1.68
[2023-07-03 09:58] LABS: Albumin 2.7 g/dL (3.4-5.0); Albumin/Globulin Ratio 0.8 (1.1-1.8); Anion Gap 11.6 mEq/L (5.0-15.0); Bilirubin Total 1.7 mg/dL (0.2-1.0); Globulin 3.3 g/dL (2.3-3.5); Potassium 3.6 mEq/L (3.5-5.1)
--- NOTE | 2023-07-03 10:09 | RAD REPORT ---
EXAM DESCRIPTION: CT - Hip Right Wo Con - 07/03/2023 9:53 am CLINICAL HISTORY: fall COMPARISON: No comparisons FINDINGS: Impacted right subcapital femoral neck fracture with only slight displacement. Mild right acetabular degenerative changes. No dislocation. Peripheral vascular calcifications. Hysterectomy. IMPRESSION: Slightly displaced and impacted right subcapital femoral neck fracture.
[2023-07-03 12:48] VITALS: BP 115/88; TEMP 98; O2SAT 95
== END 2023-07-03 11:35 | disposition short-term general hospital (02) ==
LOC: ER 08:23
DX: S72.011A Unspecified intracapsular fracture of right femur, initial encounter for closed fracture (principal); W18.30XA Fall on same level, unspecified, initial encounter; Z96.653 Presence of artificial knee joint, bilateral
CPT/HCPCS: 85025; 36415; 85610; 80053; 73700; 72170; 73502; 96375; 96374; 99285; J2270 ×2; J2405

== ENCOUNTER 2023-07-29 13:31 | Emergency (ER) | payer OTHER, BC ==
--- NOTE | 2023-07-29 15:01 | RAD REPORT ---
EXAM DESCRIPTION: CT - Head C Spine Mpr Wo Con - 07/29/2023 2:27 pm CLINICAL HISTORY: Head and neck injury status post fall. Head and neck pain COMPARISON: March 2023 TECHNIQUE: Computed axial tomography of the head and cervical spine was obtained. Sagittal and coronal reconstruction was performed. All CT scans are performed using dose optimization technique as appropriate and may include automated exposure control or mA/KV adjustment according to patient size. FINDINGS: Very small late subdural hematoma along the left frontal convexity minimally decreased in size. No mass effect. Ventricles are normal caliber. No significant hypodensity within the brain. Fluid within the visualized sinuses and mastoids is not seen A cervical fracture is not visualized. No dislocation is noted. IMPRESSION: No acute intracranial abnormality is seen. Very small late subdural hematoma left frontal convexity minimally decreased in size A cervical fracture is not visualized. If the patient continues to have symptoms to suggest significant intracranial /spinal cord pathology then MRI would be recommended
--- NOTE | 2023-07-29 15:16 | RAD REPORT ---
EXAM DESCRIPTION: RAD - Shoulder Left 2 View - 07/29/2023 2:48 pm CLINICAL HISTORY: Left shoulder pain status post fall FINDINGS: No fracture or dislocation is seen. Osteoporosis
--- NOTE | 2023-07-29 15:17 | RAD REPORT ---
EXAM DESCRIPTION: RAD - Wrist Left 3 View - 07/29/2023 2:48 pm CLINICAL HISTORY: Left wrist pain status post injury FINDINGS: No fracture or dislocation is seen. Osteoporosis If the patient continues to have symptoms to suggest an occult fracture then a followup plain film se renato in 7 days would be recommended
[2023-07-29 15:18] LABS: Absolute Basophils 0.1 K/uL (0-0.5); Absolute Eosinophils 0.1 K/uL (0-0.5); Absolute Lymphocytes (CBC) 1.6 K/uL (0.7-4.9); Absolute Neutrophil 4.4 K/uL (1.8-8.0); Hematocrit 32.1 % (36.0-45.0); Hemoglobin 11.1 g/dL (12.0-15.0); Lymphocytes % 21.7 % (15.3-44.8); MCH 33.9 pg (27.0-35.0); MCHC 34.6 g/dL (32.0-36.0); MPV 7.9 fL (7.6-11.3); Monocytes % 13.7 % (3.3-12.3); Neutrophils % 61.6 % (41.7-73.7); Nucleated Red Blood Cells % 0.1 % (0-0); Platelets 157 thou/uL (152-406); RBC Red Blood Cell Count 3.27 M/uL (3.86-4.86); Red Cell Distribution Width 14.7 % (12.1-15.2)
--- NOTE | 2023-07-29 15:18 | RAD REPORT ---
EXAM DESCRIPTION: RAD - Pelvis - 07/29/2023 2:48 pm CLINICAL HISTORY: Pelvic pain status post injury FINDINGS: No acute fracture or dislocation is seen. Osteoporosis. Pins affix a right femoral fractur e If the patient continues to have symptoms to suggest an occult fracture then MRI would be recommended
[2023-07-29 15:37] LABS: Albumin/Globulin Ratio 0.8 (1.1-1.8); Anion Gap 12.1 mEq/L (5.0-15.0); Bilirubin Direct 0.5 mg/dL (0-0.2); Bilirubin Indirect, Calculated 0.6 mg/dL (0.2-0.8); Bilirubin Total 1.1 mg/dL (0.2-1.0); Globulin 3.7 g/dL (2.3-3.5); Magnesium 1.6 mg/dL (1.6-2.4); Potassium 4.1 mEq/L (3.5-5.1); Protein, Total 6.7 g/dL (6.4-8.2)
--- NOTE | 2023-07-29 15:49 | RAD REPORT ---
EXAM DESCRIPTION: RAD - Hip Right 2 View - 07/29/2023 2:48 pm CLINICAL HISTORY: Right hip pain FINDINGS: Pins affix an old right femoral fracture. No fracture or dislocation is seen. Osteoporosis is present
[2023-07-29 16:16] LABS: Specific Gravity 1.016 (1.005-1.030); Sqamous Epithelial <5 /HPF (None Seen); Urine Bacteria None Seen /HPF (<20); Urine Bilirubin NEGATIVE (Negative); Urine Blood Negative (Negative); Urine Clarity Clear (Clear); Urine Color Yellow (Yellow); Urine Culture Reflex Order NOT NEEDED; Urine Glucose NEGATIVE (Negative); Urine Ketones NEGATIVE (Negative); Urine Micro Reflex YN NO BILL MICROSCOPIC; Urine Mucus Slight /HPF (None Seen); Urine Nitrite NEGATIVE (Negative); Urine Protein NEGATIVE (Negative); Urine RBC <5 /HPF (None Seen); Urine Urobilinogen Normal (Normal); Urine WBC <5 /HPF (<5); Urine pH 5.5 (5.0-7.0)
--- NOTE | 2023-07-29 16:29 | ER ---
Nurse's Notes [facility] Name: Payal Munoz Age: 83 yrs Sex: Female : 1940 Arrival Date: 07/29/2023 Time: 13:31 Bed 12 Private MD: Diagnosis: Mechanical fall;Left wrist pain Presentation: 07/28 14:00 Chief complaint: Patient states: fell around 0130 today, pt's daughter states "she aa5 didn't call me until around 6am today". Pt reports she landed on her back and hit her head, denies LOC. 14:00 Coronavirus screen: At this time, the client does not indicate any symptoms associated aa5 with coronavirus-19. Ebola Screen: Patient denies travel to an Ebola-affected area in the 21 days before illness onset. Initial Sepsis Screen: Does the patient meet any 2 criteria? No. Patient's initial sepsis screen is negative. Does the patient have a suspected source of infection? No. Patient's initial sepsis screen is negative. Risk Assessment: Do you want to hurt yourself or someone else? Patient reports no desire to harm self or others. Onset of symptoms was July 29, 2023. 14:00 Acuity: THI 2 aa5 14:00 Method Of Arrival: Wheelchair aa5 Triage Assessment: 15:16 General: Appears. tl4 Historical: - Allergies: 14:00 No Known Allergies; aa5 - Home Meds: 16:09 Advil 200 mg Oral tab 1 tab every 4 hours [Active]; allopurinol 300 mg Oral tab 1 tab tl4 once daily [Active]; amlodipine 5 mg tab 1 tab once daily [Active]; duloxetine 60 mg Oral cpDR 1 cap once daily [Active]; Famotidine Oral [Active]; gabapentin 100 mg Oral cap 1 cap twice a day [Active]; leflunomide 20 mg Oral tab 1 tab once daily [Active]; quetiapine 100 mg Oral tab 1 tab bedtime [Active]; spironolacton-hydrochlorothiaz 25-25 mg Oral tablet [Active]; zolpidem 12.5 mg Oral TbMP 1 tab once daily [Active]; - PMHx: 14:00 Rheumatoid Arthritis; traumatic brain hemorrahage (Unknown); aa5 - PSHx: 14:00 back; bilateral feet; bilateral knee replacement; Bilateral lens replacement; aa5 hysterectomy; right hip sx (Unknown); - Immunization history:: Adult Immunizations unknown. - Infectious Disease History:: Denies. - Family history:: not pertinent. - Social history:: Smoking status: Patient denies any tobacco usage or history of. Screenin:15 [facility] ED Fall Risk Assessment (Adult) History of falling in the last 3 months, tl4 including since admission Yes- fall prone (multiple falls) (3 pts) Confusion or Disorientation No (0 pts) Intoxicated or Sedated No (0 pts) Impaired Gait No (0 pts) Mobility Assist Device Used No (0 pt) Altered Elimination No (0 pt) Score/Fall Risk Level 3 or more points = High Risk Oriented to surroundings, Maintained a safe environment, Educated pt \\T\\ family on fall prevention, incl call for assistance when getting out of bed, Assessed \\T\\ reinforced patient's understanding of fall precautions, Provided non-skid footwear, Hourly rounding (assess needs \\T\\ fall precautionary measures) done, Used ambulatory aids as needed (educated on \\T\\ assisted with), Used gait belt as appropriate. Abuse screen: Denies threats or abuse. Denies injuries from another. Nutritional screening: No deficits noted. Tuberculosis screening: No symptoms or risk factors identified. Assessment: 14:18 Reassessment: Pt in CT scan. tl4 14:55 Reassessment: returned from CT. tl4 15:16 General: Appears in no apparent distress. Behavior is calm, cooperative. Pain: Denies tl4 pain. Neuro: Level of Consciousness is awake, alert, obeys commands, Oriented to person, place, time, situation, Moves all extremities. Gait is unsteady, Speech is normal, Facial symmetry appears normal. Cardiovascular: Capillary refill < 3 seconds Patient's skin is warm and dry. Respiratory: Airway is patent Respiratory effort is even, unlabored, Respiratory pattern is regular, symmetrical, Breath sounds are clear bilaterally. GI: No signs and/or symptoms were reported involving the gastrointestinal system. : No signs and/or symptoms were reported regarding the genitourinary system. EENT: No signs and/or symptoms were reported regarding the EENT system. Derm: No signs and/or symptoms reported regarding the dermatologic system. Musculoskeletal: No signs and/or symptoms reported regarding the musculoskeletal system. 16:13 Reassessment: Patient and/or family updated on plan of care and expected duration. Pain tl4 level reassessed. Patient is alert, oriented x 3, equal unlabored respirations, skin warm/dry/pink. Pt denies any needs at this time. 16:53 Reassessment: Patient and/or family updated on plan of care and expected duration. Pain tl4 level reassessed. Patient is alert, oriented x 3, equal unlabored respirations, skin warm/dry/pink. Patient states feeling better. Vital Signs: 14:00 BP 130 / 59; Pulse 97; Resp 18 S; Temp 98(TE); Pulse Ox 99% on R/A; Weight 58.97 kg aa5 (R); Height 5 ft. 0 in. (R); 15:00 BP 144 / 66; Pulse 86; Resp 19; Pulse Ox 98% on R/A; tl4 16:00 BP 129 / 62; Pulse 85; Resp 14; Pulse Ox 97% on R/A; tl4 14:00 Body Mass Index 25.39 (58.97 kg, 152.4 cm) aa5 ED Course: 13:47 Patient arrived in ED. mg5 13:54 Jason Grace MD is Attending Physician. rt 14:00 Arm band placed on. aa5 14:03 Triage completed. aa5 14:17 Soto Mendez, RN is Primary Nurse. tl4 14:[address] hb 14:28 CT Head C Spine In Process Unspecified. EDMS 14:50 Shoulder Left (2 View) XRAY In Process Unspecified. EDMS 14:50 Wrist Left (3 View) XRAY In Process Unspecified. EDMS 14:50 Pelvis XRAY In Process Unspecified. EDMS 14:50 Hip Right 2 View XRAY In Process Unspecified. EDMS 14:58 EKG done, by ED staff, reviewed by Jason Grace MD. hb 15:13 CPK Sent. tl4 15:14 Basic Metabolic Panel Sent. tl4 15:14 CBC with Diff Sent. tl4 15:14 LFT's Sent. tl4 15:14 Troponin HS Sent. tl4 15:14 Magnesium Sent. tl4 15:14 Inserted saline lock: 22 gauge in right antecubital area, using aseptic technique. tl4 Blood collected. 15:15 Patient has correct armband on for positive identification. Placed in gown. Bed in low tl4 position. Call light in reach. Side rails up X 1. Adult w/ patient. Provided Education on: ED process. Client placed on continuous cardiac and pulse oximetry monitoring. NIBP monitoring applied. telemetry monitor on. Door closed. Noise minimized. Moved to private room. Warm blanket given. 15:17 No provider procedures requiring assistance completed. tl4 15:20 Client placed on continuous cardiac and pulse oximetry monitoring. NIBP monitoring hb applied. telemetry monitor on. Pulse ox on. NIBP on. 16:08 UAM Sent. tl4 16:11 Straight cath inserted, using sterile technique, 14 Fr. Specimen obtained. Patient tl4 tolerated well. 16:13 Assisted to bathroom. tl4 16:20 Warm blanket given. Pillow given. tl4 16:53 IV discontinued, intact, bleeding controlled, No redness/swelling at site. Pressure tl4 dressing applied. Administered Medications: No medications were administered Medication: 15:14 VIS not applicable for this client. tl4 Outcome: 16:28 Discharge ordered by . rt 16:53 Discharged to home via wheelchair, with family, tl4 16:53 Condition: stable 16:53 Discharge instructions given to patient, family, Instructed on discharge instructions, follow up and referral plans. Demonstrated understanding of instructions, follow-up care, 16:54 Patient left the ED. tl4 Signatures: Dispatcher [employer] EDMS Vilma Solitario RN RN aa5 Radha Gold RN RN Jason Grace MD MD rt [facility]5 Soto Mendez RN RN tl4 Corrections: (The following items were deleted from the chart) 14:02 14:00 PMHx: Hypertension; jimmy aaJessa 15:25 15:14 Initial lab(s) drawn, by me, sent to lab. EKG done, tl4 hb 15:26 14:58 EKG done, by ED staff, reviewed by Jason Grace MD hb
--- NOTE | 2023-07-29 16:29 | EDPHYS ---
Physician Documentation [facility] Name: Payal Munoz Age: 83 yrs Sex: Female : 1940 Arrival Date: 07/29/2023 Time: 13:31 Bed 12 Private MD: ED Physician Jason Grace HPI: 07/28 16:29 This 83 yrs old Female presents to ER via Wheelchair with complaints of Fall Injury. rt 16:29 Patient presents to the ED with mechanical fall. Patient states that she fell rt backwards, denies loss of consciousness. States that she believes she may have hit her head. She does report pain to the left shoulder, left wrist. Denies other acute complaints at this time, symptoms are moderate in severity, no other aggravating or alleviating factors.. Historical: - Allergies: 14:00 No Known Allergies; aa5 - Home Meds: 16:09 Advil 200 mg Oral tab 1 tab every 4 hours [Active]; allopurinol 300 mg Oral tab 1 tab tl4 once daily [Active]; amlodipine 5 mg tab 1 tab once daily [Active]; duloxetine 60 mg Oral cpDR 1 cap once daily [Active]; Famotidine Oral [Active]; gabapentin 100 mg Oral cap 1 cap twice a day [Active]; leflunomide 20 mg Oral tab 1 tab once daily [Active]; quetiapine 100 mg Oral tab 1 tab bedtime [Active]; spironolacton-hydrochlorothiaz 25-25 mg Oral tablet [Active]; zolpidem 12.5 mg Oral TbMP 1 tab once daily [Active]; - PMHx: 14:00 Rheumatoid Arthritis; traumatic brain hemorrahage (Unknown); aa5 - PSHx: 14:00 back; bilateral feet; bilateral knee replacement; Bilateral lens replacement; aa5 hysterectomy; right hip sx (Unknown); - Immunization history:: Adult Immunizations unknown. - Infectious Disease History:: Denies. - Family history:: not pertinent. - Social history:: Smoking status: Patient denies any tobacco usage or history of. ROS: 16:29 Constitutional: Negative for fever, chills, and weight loss, Cardiovascular: Negative rt for chest pain, palpitations, and edema, Respiratory: Negative for shortness of breath, cough, wheezing, and pleuritic chest pain, Abdomen/GI: Negative for abdominal pain, nausea, vomiting, diarrhea, and constipation, Back: Negative for injury and pain, Skin: Negative for injury, rash, and discoloration, Neuro: Negative for headache, weakness, numbness, tingling, and seizure, Psych: Negative for depression, anxiety, suicide ideation, homicidal ideation, and hallucinations, 16:29 MS/extremity: Positive for pain, Negative for deformity, Exam: 16:29 Constitutional: This is a well developed, well nourished patient who is awake, alert, rt and in no acute distress. Head/Face: Normocephalic, atraumatic. Neck: Trachea midline, no thyromegaly or masses palpated, and no cervical lymphadenopathy. Supple, full range of motion without nuchal rigidity, or vertebral point tenderness. No Meningismus. Chest/axilla: Normal chest wall appearance and motion. Nontender with no deformity. No lesions are appreciated. Cardiovascular: Regular rate and rhythm with a normal S1 and S2. No gallops, murmurs, or rubs. Normal PMI, no JVD. No pulse deficits. Respiratory: Lungs have equal breath sounds bilaterally, clear to auscultation and percussion. No rales, rhonchi or wheezes noted. No increased work of breathing, no retractions or nasal flaring. Abdomen/GI: Soft, non-tender, with normal bowel sounds. No distension or tympany. No guarding or rebound. No evidence of tenderness throughout. Back: No spinal tenderness. No costovertebral tenderness. Full range of motion. Skin: Warm, dry with normal turgor. Normal color with no rashes, no lesions, and no evidence of cellulitis. Neuro: Awake and alert, GCS 15, oriented to person, place, time, and situation. Cranial nerves II-XII grossly intact. Motor strength 5/5 in all extremities. Sensory grossly intact. Cerebellar exam normal. Normal gait. Psych: Awake, alert, with orientation to person, place and time. Behavior, mood, and affect are within normal limits. 16:29 Musculoskeletal/extremity: Mild swelling, tenderness to the left wrist, full range of motion, no deformities noted, pulses, motor, sensation intact, mild tenderness laterally on left shoulder, full range of motion, no deformities.. 16:29 ECG was reviewed by the Attending Physician. rt Vital Signs: 14:00 BP 130 / 59; Pulse 97; Resp 18 S; Temp 98(TE); Pulse Ox 99% on R/A; Weight 58.97 kg aa5 (R); Height 5 ft. 0 in. (R); 15:00 BP 144 / 66; Pulse 86; Resp 19; Pulse Ox 98% on R/A; tl4 16:00 BP 129 / 62; Pulse 85; Resp 14; Pulse Ox 97% on R/A; tl4 14:00 Body Mass Index 25.39 (58.97 kg, 152.4 cm) aa5 MDM: 14:05 Patient medically screened. rt 16:29 Differential diagnosis: Fall, intracranial hemorrhage, fracture, rhabdo, UTI. Data rt reviewed: vital signs, nurses notes, lab test result(s), EKG, radiologic studies. Consideration of Admission/Observation Escalation of care including admission/observation considered. No signs of syncope, benign labs, not likely to benefit from admission, return precautions discussed.. Independent interpretation of the following test(s) in the Emergency Department X-Ray: My interpretation is No fracture seen on my interpretation of x-ray images. Care significantly affected by the following chronic conditions: Previous subdural hemorrhage. Counseling: I had a detailed discussion with the patient and/or guardian regarding the historical points, exam findings, and any diagnostic results supporting the discharge/admit diagnosis, lab results, radiology results, the need for outpatient follow up, to return to the emergency department if symptoms worsen or persist or if there are any questions or concerns that arise at home, Discussed CPK findings with the patient, do not believe that this is clinically significant at this time, patient was instructed to increase her fluid intake. Patient was also informed of findings of a very small, old appearing subdural hemorrhage from previous fall, do not believe this represents acute hemorrhage.. 07/28 14:13 Order name: Basic Metabolic Panel; Complete Time: 15:39 rt 07/28 14:13 Order name: CBC with Diff; Complete Time: 15:39 rt 07/28 14:13 Order name: LFT's; Complete Time: 15:39 rt 07/28 14:13 Order name: Magnesium; Complete Time: 15:39 rt 07/28 14:13 Order name: Troponin HS; Complete Time: 15:39 rt 07/28 14:13 Order name: CPK; Complete Time: 15:39 rt 07/28 14:13 Order name: UAM; Complete Time: 16:21 rt 07/28 14:13 Order name: CT Head C Spine; Complete Time: 15:39 rt 07/28 14:13 Order name: Shoulder Left (2 View) XRAY; Complete Time: 15:39 rt 07/28 14:13 Order name: Wrist Left (3 View) XRAY; Complete Time: 15:39 rt 07/28 14:14 Order name: Pelvis XRAY; Complete Time: 15:39 rt 07/28 14:14 Order name: Hip Right 2 View XRAY; Complete Time: 16:07 rt 07/28 14:13 Order name: EKG; Complete Time: 14:14 rt 07/28 14:13 Order name: Cardiac monitoring; Complete Time: 15:13 rt 07/28 14:13 Order name: EKG - Nurse/Tech; Complete Time: 15:13 rt 07/28 14:13 Order name: IV Saline Lock; Complete Time: 15:13 rt 07/28 14:13 Order name: Labs collected and sent; Complete Time: 15:13 rt 07/28 14:13 Order name: O2 Per Protocol; Complete Time: 15:13 rt 07/28 14:13 Order name: O2 Sat Monitoring; Complete Time: 15:14 rt EC:29 Rate is 83 beats/min. Rhythm is regular, Normal Sinus Rhythm with No ectopy. QRS [place] rt is Normal. IA interval is normal. QRS interval is normal. QT interval is normal. No Q waves. No ST changes noted. Interpreted by me. Administered Medications: No medications were administered Disposition Summary: 07/29/23 16:28 Discharge Ordered Notes: Location: Home rt Problem: new rt Symptoms: have improved rt Condition: Stable rt Diagnosis - Mechanical fall rt - Left wrist pain rt Followup: rt - With: Private Physician - When: 2 - 3 days - Reason: Discharge Instructions: - Discharge Summary Sheet rt - Fall Prevention in the Home, Adult rt - Musculoskeletal Pain rt Forms: - Medication Reconciliation Form rt - Antibiotic Education rt - Prescription Opioid Use rt - Patient Portal Instructions rt - Leadership Thank You Letter rt Signatures: Dispatcher [facility] Vilma Gilbert RN RN aa5 Jason Grace MD MD rt Soto Mendez RN RN tl4 Corrections: (The following items were deleted from the chart) 14:02 14:00 PMHx: Hypertension; aa5 aa5 14:14 14:14 BASIC METABOLIC PANEL+C.LAB.BRZ ordered. EDMS EDMS 14:14 14:14 CBC+H.LAB.BRZ ordered. EDMS EDMS 14:14 14:14 HEPATIC FUNCTION+C.LAB.BRZ ordered. EDMS EDMS 14:14 14:14 MAGNESIUM+C.LAB.BRZ ordered. EDMS EDMS 14:14 14:14 Troponin High Sensitivity+C.LAB.BRZ ordered. EDMS EDMS 14:14 14:14 CREATINE PHOSPHOKINASE+C.LAB.BRZ ordered. EDMS EDMS 14:14 14:14 Urinalysis W/Microscopic+U.LAB.BRZ ordered. EDMS EDMS
[2023-07-29 17:30] VITALS: BP 129/62; TEMP 98; O2SAT 97
--- NOTE | 2023-08-01 13:03 | EKG ---
Test Date: 2023-07-29 Test Time: 14:58:20 [employer] Administrator: TL MEASUREMENT RESULTS: Intervals: Rate: 83 CT: 178 QRSD: 92 QT: 398 QTc: 467 [place]: P: 54 CT: 178 QRS: 31 T: 38 INTERPRETIVE STATEMENTS: Normal sinus rhythm with sinus arrhythmia Cannot rule out Anterior infarct, age undetermined Abnormal ECG Compared to ECG 03/10/2023 17:42:42 No significant changes Electronically Signed On 08-01-23 12:56:52 CDT by Isaac Nicholson
== END 2023-07-29 16:54 | disposition home or self-care (01) ==
LOC: ER 13:31
DX: M25.532 Pain in left wrist (principal); M25.512 Pain in left shoulder; W18.30XA Fall on same level, unspecified, initial encounter; Z87.820 Personal history of traumatic brain injury; Z96.653 Presence of artificial knee joint, bilateral
CPT/HCPCS: 36415; 70450; 72125; 72170; 80048; 80076; 81001; 82550; 83735; 84484; 85025; 93005

== ENCOUNTER 2023-09-22 12:27 | Emergency (ER) | payer OTHER, BC ==
[2023-09-22] MEDS ORDERED: NA CHLORIDE 0.9% 500 ML ONE ×2 (12:48→14:44)
[2023-09-22 13:12] LABS: Absolute Eosinophils 0.1 K/uL (0-0.5); Absolute Lymphocytes (CBC) 0.8 K/uL (0.7-4.9); Absolute Monocytes 0.8 K/uL (0.1-1.3); Absolute Neutrophil 3.7 K/uL (1.8-8.0); Basophils % 0.4 % (0-1.3); Eosinophils % 0.9 % (0-4.4); Hematocrit 36.3 % (36.0-45.0); Hemoglobin 12.2 g/dL (12.0-15.0); Lymphocytes % 15.2 % (15.3-44.8); MCH 34.2 pg (27.0-35.0); MCHC 33.5 g/dL (32.0-36.0); MCV 101.9 fL (80-100); MPV 7.9 fL (7.6-11.3); Monocytes % 14.8 % (3.3-12.3); Neutrophils % 68.7 % (41.7-73.7); Platelets 137 thou/uL (152-406); RBC Red Blood Cell Count 3.56 M/uL (3.86-4.86); Red Cell Distribution Width 15.2 % (12.1-15.2)
[2023-09-22 13:31] LABS: Albumin 3.2 g/dL (3.4-5.0); Albumin/Globulin Ratio 0.8 (1.1-1.8); Anion Gap 11.4 mEq/L (5.0-15.0); Bilirubin Total 0.8 mg/dL (0.2-1.0); Globulin 4.2 g/dL (2.3-3.5); Potassium 5.4 mEq/L (3.5-5.1); Protein, Total 7.4 g/dL (6.4-8.2)
--- NOTE | 2023-09-22 13:32 | RAD REPORT ---
EXAM DESCRIPTION: CT - Head C Spine Cap Wo Con - 09/22/2023 12:49 pm CLINICAL HISTORY: Trauma, head and neck injury. Chest, abdomen and pelvis pain. TRAUMA COMPARISON: Head C Spine Cap Wo Con dated 08/29/2023 TECHNIQUE: CT head without contrast. CT cervical spine without contrast with coronal and sagittal reformatted images. CT chest, abdomen and pelvis without contrast with coronal and sagittal reformatted images of the spi ne. All CT scans are performed using dose optimization technique as appropriate and may include automated exposure control or mA/KV adjustment according to patient size. FINDINGS: CT HEAD WITHOUT CONTRAST: No intracranial hemorrhage, hydrocephalus or extra-axial fluid collection. Mild generalized brain atr ophy. No areas of brain edema or midline shift. Small left frontal scalp hematoma. The paranasal sinuses and mastoids are clear. The calvarium is intact. CT CERVICAL SPINE WITHOUT CONTRAST: No fracture or subluxation. Mild cervical degenerative changes. The prevertebral soft tissues are nor mal in thickness. CT CHEST, ABDOMEN, PELVIS WITHOUT CONTRAST: NOTE: Lack of contrast is a significant limitation in the assessment of trauma related findings. Spec ifically, solid organ, vascular and bowel evaluation is significantly limited. The lungs are clear.No pneumothorax or pericardial/pleural fluid. No evidence of intra-abdominal visceral injury, free fluid or free air is seen within the above detai led limitations. Prominent retained stool throughout the colon. No concerning pelvic findings. Moderate lumbar degenerative changes. No acute fracture is demonstrated. IMPRESSION: Negative for acute traumatic findings within the above detailed limitations.
--- NOTE | 2023-09-22 15:14 | EDPHYS ---
Physician Documentation [facility] Name: Payal Munoz Age: 83 yrs Sex: Female : 1940 Arrival Date: 09/22/2023 Time: 12:27 Bed 4 Private MD: ED Physician Jack Vela HPI: 09/21 15:04 This 83 yrs old Female presents to ER via EMS with complaints of FALL , HIT titus HEAD , MILD LOWER BACK PAIN. 15:04 The patient or guardian reports pain, swelling, tenderness. The complaints affect the titus left pentecostal. Context of injury: The problem was sustained at home, resulted from a fall. Onset: The symptoms/episode began/occurred just prior to arrival. Associated signs and symptoms: Loss of consciousness: This patient did not experience any loss of consciousness. FALL, NO LOC , NO N/V. Details of fall: The patient fell from an upright position, while walking. Associated injuries: The patient sustained injury to the head, injury to the low back, pain, pain with movement. Severity of symptoms: At their worst the symptoms were mild, in the emergency department the symptoms are unchanged. Historical: - Allergies: 12:55 No Known Allergies; ko1 - PMHx: 12:55 Rheumatoid Arthritis; traumatic brain hemorrahage (Unknown); ko1 - PSHx: 12:55 back; bilateral feet; bilateral knee replacement; Bilateral lens replacement; ko1 hysterectomy; right hip sx; - Immunization history:: Adult Immunizations up to date. - Infectious Disease History:: Denies. - Social history:: Smoking status: Patient denies any tobacco usage or history of. - Family history:: not pertinent. ROS: 15:04 Constitutional: Negative for fever, chills, and weight loss, Eyes: Negative for injury, titus pain, redness, and discharge, ENT: Negative for injury, pain, and discharge, Neck: Negative for injury, pain, and swelling, Cardiovascular: Negative for chest pain, palpitations, and edema, Respiratory: Negative for shortness of breath, cough, wheezing, and pleuritic chest pain, Abdomen/GI: Negative for abdominal pain, nausea, vomiting, diarrhea, and constipation, : Negative for injury, bleeding, discharge, and swelling, MS/Extremity: Negative for injury and deformity, Skin: Negative for injury, rash, and discoloration, Psych: Negative for depression, anxiety, suicide ideation, homicidal ideation, and hallucinations, Allergy/Immunology: Negative for hives, rash, and allergies, Endocrine: Negative for neck swelling, polydipsia, polyuria, polyphagia, and marked weight changes, Hematologic/Lymphatic: Negative for swollen nodes, abnormal bleeding, and unusual bruising, 15:04 Back: Positive for pain at rest, of the lumbar area, 15:04 Skin: Positive for swelling, of the face and left side of forehead, Exam: 15:04 Constitutional: This is a well developed, well nourished patient who is awake, alert, titus and in no acute distress. Eyes: Pupils equal round and reactive to light, extra-ocular motions intact. Lids and lashes normal. Conjunctiva and sclera are non-icteric and not injected. Cornea within normal limits. Periorbital areas with no swelling, redness, or edema. ENT: Nares patent. No nasal discharge, no septal abnormalities noted. Tympanic membranes are normal and external auditory canals are clear. Oropharynx with no redness, swelling, or masses, exudates, or evidence of obstruction, uvula midline. Mucous membranes moist. Neck: Trachea midline, no thyromegaly or masses palpated, and no cervical lymphadenopathy. Supple, full range of motion without nuchal rigidity, or vertebral point tenderness. No Meningismus. Chest/axilla: Normal chest wall appearance and motion. Nontender with no deformity. No lesions are appreciated. Cardiovascular: Regular rate and rhythm with a normal S1 and S2. No gallops, murmurs, or rubs. Normal PMI, no JVD. No pulse deficits. Respiratory: Lungs have equal breath sounds bilaterally, clear to auscultation and percussion. No rales, rhonchi or wheezes noted. No increased work of breathing, no retractions or nasal flaring. Abdomen/GI: Soft, non-tender, with normal bowel sounds. No distension or tympany. No guarding or rebound. No evidence of tenderness throughout. Back: No spinal tenderness. No costovertebral tenderness. Full range of motion. Skin: Warm, dry with normal turgor. Normal color with no rashes, no lesions, and no evidence of cellulitis. MS/ Extremity: Pulses equal, no cyanosis. Neurovascular intact. Full, normal range of motion. Neuro: Awake and alert, GCS 15, oriented to person, place, time, and situation. Cranial nerves II-XII grossly intact. Motor strength 5/5 in all extremities. Sensory grossly intact. Cerebellar exam normal. Normal gait. Psych: Awake, alert, with orientation to person, place and time. Behavior, mood, and affect are within normal limits. 15:04 Head/face: Noted is contusion, hematoma, that is mild, of the forehead and left pentecostal, Vital Signs: 12:35 BP 124 / 54; Pulse 86; Resp 16; Temp 98; Pulse Ox 99% on R/A; ko1 15:00 BP 128 / 64; Pulse 80; Resp 17; Pulse Ox 99% on R/A; rs5 [place] Coma Score: 15:04 Eye Response: spontaneous(4). Motor Response: obeys commands(6). Verbal Response: titus oriented(5). Total: 15. 15:09 Eye Response: spontaneous(4). Motor Response: obeys commands(6). Verbal Response: titus oriented(5). Total: 15. MDM: 12:32 Patient medically screened. titus 15:09 Differential diagnosis: Contusion of Hematoma on Laceration of Intracranial bleed- titus Concussion without LOC. cerebral contusion. Differential Diagnosis altered mental status, sepsis, flu. Differential diagnosis: abrasion, closed head injury, contusion, fracture, laceration, multiple trauma, sprain, strain. Data reviewed: vital signs, nurses notes, long-term records, lab test result(s), radiologic studies, CT scan. Consideration of Admission/Observation Escalation of care including admission/observation considered. I considered the following discharge prescriptions or medication management in the emergency department Medications were administered in the Emergency Department. See MAR. Independent interpretation of the following test(s) in the Emergency Department CT Scan: My interpretation is CT TRAUMAGRAM. Test considered but Not performed: X-ray: NO X RAYS. Care significantly affected by the following chronic conditions: RA, BRAIN HEMORRHAGE. Counseling: I had a detailed discussion with the patient and/or guardian regarding the historical points, exam findings, and any diagnostic results supporting the discharge/admit diagnosis, lab results, radiology results, the need for outpatient follow up, for definitive care, a family practitioner. 09/21 12:40 Order name: CBC with Diff; Complete Time: 14:22 titus 09/21 12:40 Order name: Comprehensive Metabolic Panel; Complete Time: 14:22 [facility] 09/21 12:40 Order name: CT Traumagram (Head C Spine CAP wo con); Complete Time: 14: [facility] 09/21 12:40 Order name: Ice pack; Complete Time: 12:53 titus Administered Medications: 12:50 Drug: NS 0.9% IV 500 ml IV at bolus once Route: IV; Rate: bolus; Site: right rs5 antecubital; 14:25 Drug: NS 0.9% IV 500 ml IV at bolus once Route: IV; Rate: bolus; Site: right rs5 antecubital; 15:00 Drug: Ketorolac IVP 15 mg IVP once Route: IVP; Site: right antecubital; rs5 Disposition Summary: 09/22/23 15:14 Discharge Ordered Notes: Location: Home titus Problem: new titus Symptoms: have improved titus Condition: Stable titus Diagnosis - Fall on same level, unspecified titus - Contusion of unspecified part of head titus - Low back pain titus - Hypo-osmolality and hyponatremia titus - Hyperkalemia titus - Unspecified injury of head, initial encounter titus Followup: titus - With: Private Physician - When: 2 - 3 days - Reason: Recheck today's complaints, Continuance of care, Re-evaluation by your physician Discharge Instructions: - Discharge Summary Sheet titus - Acute Back Pain, Adult titus - Chronic Back Pain titus - Head Injury, Adult titus - Hyperkalemia titus - Hyperkalemia, [id number] titus - Hyponatremia titus - Musculoskeletal Pain titus - Back Injury Prevention, [id number] titus - Head Injury, Adult, [id number] [facility] Forms: - Medication Reconciliation Form [facility] - Antibiotic Education titus - Prescription Opioid Use titus - Patient Portal Instructions [facility] - Leadership Thank You Letter [facility] Prescriptions: - Tylenol 325 mg Oral tablet - take 2 tablets ORAL route every 6 hours as needed; 30 tablet; Refills: 0, titus Product Selection Permitted - Motrin IB 200 mg Oral tablet - take 2 tablet ORAL route every 6 hours As needed as needed with food; 30 titus tablet; Refills: 0, Product Selection Permitted Signatures: Dispatcher [employer] Jack Montemayor MD MD cha Oliver, Kathy RN RN ko1 Peter Ott RN RN rs5
--- NOTE | 2023-09-22 15:14 | ER ---
Nurse's Notes [facility] Name: Payal Munoz Age: 83 yrs Sex: Female : 1940 Arrival Date: 09/22/2023 Time: 12:27 Bed 4 Private MD: Diagnosis: Fall on same level, unspecified;Contusion of unspecified part of head;Low back pain;Hypo-osmolality and hyponatremia;Hyperkalemia;Unspecified injury of head, initial encounter Presentation: 09/21 12:35 Chief complaint: EMS states: patient fell in kitchen hitting left side of forehead, ko1 hematoma present, no bleeding, no blood thinners, no LOC. Coronavirus screen: At this time, the client does not indicate any symptoms associated with coronavirus-19. Ebola Screen: No symptoms or risks identified at this time. Initial Sepsis Screen: Does the patient meet any 2 criteria? No. Patient's initial sepsis screen is negative. Does the patient have a suspected source of infection? No. Patient's initial sepsis screen is negative. Risk Assessment: Do you want to hurt yourself or someone else? Patient reports no desire to harm self or others. Onset of symptoms was September 22, 2023. Care prior to arrival: IV initiated. 22 GA, in the right antecubital area, Glucose check: 115. Mechanism of Injury: Fall from standing position. 12:35 Method Of Arrival: EMS: [facility] ko1 12:35 Acuity: THI 3 ko1 Triage Assessment: 12:55 General: Appears in no apparent distress. Behavior is calm, cooperative, appropriate ko1 for age. Pain: Complains of pain in left side of forehead. EENT: No deficits noted. Neuro: No deficits noted. Cardiovascular: No deficits noted. Respiratory: No deficits noted. GI: No deficits noted. : No deficits noted. Derm: No deficits noted. Musculoskeletal: No deficits noted. Historical: - Allergies: 12:55 No Known Allergies; ko1 - PMHx: 12:55 Rheumatoid Arthritis; traumatic brain hemorrahage (Unknown); ko1 - PSHx: 12:55 back; bilateral feet; bilateral knee replacement; Bilateral lens replacement; ko1 hysterectomy; right hip sx; - Immunization history:: Adult Immunizations up to date. - Infectious Disease History:: Denies. - Social history:: Smoking status: Patient denies any tobacco usage or history of. - Family history:: not pertinent. Screenin:33 [facility] ED Fall Risk Assessment (Adult) History of falling in the last 3 months, rs5 including since admission Yes- single mechanical fall (1 pt) Confusion or Disorientation No (0 pts) Intoxicated or Sedated No (0 pts) Impaired Gait Yes (1 pt) Mobility Assist Device Used Yes (1 pt) Altered Elimination No (0 pt) Score/Fall Risk Level 3 or more points = High Risk Oriented to surroundings, Maintained a safe environment. Abuse screen: Denies threats or abuse. Nutritional screening: No deficits noted. Tuberculosis screening: No symptoms or risk factors identified. Assessment: 12:33 General: Appears in no apparent distress. uncomfortable, Behavior is calm, cooperative. rs5 Pain: Complains of pain in lower back and hips biat Pain currently is 3 out of 10 on a pain scale. Quality of pain is described as aching, Is continuous. Neuro: Level of Consciousness is awake, alert, obeys commands, Oriented to person, place, time, situation. Cardiovascular: Patient's skin is warm and dry. Respiratory: Respiratory effort is even, unlabored, Respiratory pattern is regular, symmetrical. GI: No signs and/or symptoms were reported involving the gastrointestinal system. : No signs and/or symptoms were reported regarding the genitourinary system. EENT: No signs and/or symptoms were reported regarding the EENT system. Derm: Bruising that is noted to right forehead. Musculoskeletal: Range of motion: intact in all extremities. 13:45 Reassessment: Patient and/or family updated on plan of care and expected duration. Pain rs5 level reassessed. Patient is alert, oriented x 3, equal unlabored respirations, skin warm/dry/pink. 15:09 Reassessment: No changes from previously documented assessment. rs5 Vital Signs: 12:35 BP 124 / 54; Pulse 86; Resp 16; Temp 98; Pulse Ox 99% on R/A; ko1 15:00 BP 128 / 64; Pulse 80; Resp 17; Pulse Ox 99% on R/A; rs5 [place] Coma Score: 15:04 Eye Response: spontaneous(4). Motor Response: obeys commands(6). Verbal Response: titus oriented(5). Total: 15. 15:09 Eye Response: spontaneous(4). Motor Response: obeys commands(6). Verbal Response: titus oriented(5). Total: 15. ED Course: 12:31 Patient arrived in ED. ko1 12:32 Jack Vela MD is Attending Physician. titus 12:33 Patient has correct armband on for positive identification. Placed in gown. Bed in low rs5 position. Call light in reach. Side rails up X2. 12:39 Inserted saline lock: 20 gauge in right antecubital area, using aseptic technique. rs5 12:39 No provider procedures requiring assistance completed. rs5 12:49 CT Traumagram (Head C Spine CAP wo con) In Process Unspecified. EDMS 12:55 Triage completed. ko1 12:55 Arm band placed on right wrist. Patient placed in an exam room, on a stretcher, on ko1 teletypesetter monitor, on pulse oximetry, Patient notified of wait time. 13:15 Elizabet Joseph, RN is Primary Nurse. ko1 15:35 IV discontinued, intact, bleeding controlled, No redness/swelling at site. Pressure rs5 dressing applied. Administered Medications: 12:50 Drug: NS 0.9% IV 500 ml IV at bolus once Route: IV; Rate: bolus; Site: right rs5 antecubital; 14:25 Drug: NS 0.9% IV 500 ml IV at bolus once Route: IV; Rate: bolus; Site: right rs5 antecubital; 15:00 Drug: Ketorolac IVP 15 mg IVP once Route: IVP; Site: right antecubital; rs5 Medication: 12:20 VIS not applicable for this client. rs5 Outcome: 15:14 Discharge ordered by . titus 15:35 Patient left the ED. rs5 15:35 Discharged to home via wheelchair, with family, rs5 15:35 Condition: stable 15:35 Discharge instructions given to patient, family, Instructed on discharge instructions, follow up and referral plans. medication usage, Demonstrated understanding of instructions, follow-up care, medications, Prescriptions given X 2, Signatures: Dispatcher [employer] EDMD Jack Vela MD MD cha Oliver, Kathy, RN RN ko1 Peter Ott RN RN rs5 Corrections: (The following items were deleted from the chart) 16:13 16:12 Patient left the ED. rs5 rs5
[2023-09-22] MEDS ORDERED: KETOROLAC 30 MG/ML INJ ONE (15:52)
[2023-09-22 16:36] VITALS: BP 124/54; TEMP 98; O2SAT 99
== END 2023-09-22 16:12 | disposition home or self-care (01) ==
LOC: ER 12:27
DX: S00.83XA Contusion of other part of head, initial encounter (principal); M54.50 Low back pain, unspecified; W18.30XA Fall on same level, unspecified, initial encounter; E87.1 Hypo-osmolality and hyponatremia; E87.5 Hyperkalemia
CPT/HCPCS: 85025; 36415; 80053; 70450; 71250; 72125; 96374; 99284; J7040 ×2

== ENCOUNTER 2023-11-24 12:41 | Emergency (ER) | payer OTHER, BC ==
[2023-11-24] MEDS ORDERED: FUROSEMIDE 40 MG/4 ML VIAL ONE (14:07)
[2023-11-24 14:11] LABS: Absolute Basophils 0.1 K/uL (0-0.5); Absolute Eosinophils 0.3 K/uL (0-0.5); Absolute Lymphocytes (CBC) 1.4 K/uL (0.7-4.9); Absolute Monocytes 1.3 K/uL (0.1-1.3); Basophils % 0.8 % (0-1.3); Eosinophils % 4.3 % (0-4.4); Hematocrit 34.1 % (36.0-45.0); MCH 30.8 pg (27.0-35.0); MCHC 32.3 g/dL (32.0-36.0); MCV 95.6 fL (80-100); MPV 8.6 fL (7.6-11.3); Monocytes % 15.8 % (3.3-12.3); Neutrophils % 62.1 % (41.7-73.7); Platelets 179 thou/uL (152-406); RBC Red Blood Cell Count 3.57 M/uL (3.86-4.86); Red Cell Distribution Width 15.4 % (12.1-15.2)
[2023-11-24 14:15] LABS: PT Prothrombin Time 17.9 SECONDS (9.4-12.5); Protime INR 1.62
[2023-11-24 14:28] LABS: ALT/SGPT 18 U/L (13-56); AST/SGOT 31 U/L (15-37); Albumin/Globulin Ratio 0.5 (1.1-1.8); Alkaline Phosphatase 83 U/L (45-117); BUN Blood Urea Nitrogen 14 mg/dL (7-18); Bicarbonate 22 mEq/L (21-32); Bilirubin Direct 0.5 mg/dL (0-0.2); Bilirubin Indirect, Calculated 0.6 mg/dL (0.2-0.8); Bilirubin Total 1.1 mg/dL (0.2-1.0); Globulin 3.7 g/dL (2.3-3.5); Glomerular Filtration Rate 86 ml/min (=/>90); Glucose Level 106 mg/dL (74-106); NT PRO-BNP 331 pg/mL (<450); Protein, Total 5.7 g/dL (6.4-8.2); Sodium Level 137 mEq/L (136-145); Troponin High Sensitivity 8.1 pg/mL (<58.9)
--- NOTE | 2023-11-24 14:45 | RAD REPORT ---
EXAM DESCRIPTION: RADChest Single View11/24/2023 2:21 pm CLINICAL HISTORY: Chest pain;SOB;Swelling COMPARISON: Chest Single View dated 08/29/2023; Chest Single View dated 03/10/2023; Chest Single View dated 12/01/2022; Chest Pa And Lat (2 Views) dated 05/18/2021 TECHNIQUE: Portable AP view of the chest. FINDINGS: Elevation of the right hemidiaphragm. Stable right basilar atelectasis. No pneumothorax o r effusion. The cardiomediastinal contours are unremarkable. IMPRESSION: No acute cardiopulmonary process.
[2023-11-24 15:07] LABS: Lipase < 6 U/L (13-75)
[2023-11-24] MEDS ORDERED: MAGNESIUM SULFATE 1 gm IVPB 1 GM/100 ML BAG IV ONE (15:36)
[2023-11-24] MEDS ORDERED: MORPHINE 2 MG/ML SYR ONE (16:26)
[2023-11-24] MEDS ORDERED: ONDANSETRON 4 MG/2 ML VIAL ONE (16:26)
--- NOTE | 2023-11-24 16:36 | RAD REPORT ---
EXAM DESCRIPTION: CT - Chest Abdomen Pelvis W Cont - 11/24/2023 3:30 pm CLINICAL HISTORY: Abdominal distention;Dyspnea COMPARISON: Chest Single View dated 11/24/2023; Head C Spine Cap Wo Con dated 08/29/2023; Head C Spine Cap Wo Con dated 09/22/2023 TECHNIQUE: Thin axial CT images of the chest, abdomen, and pelvis, performed following intravenous a dministration of iodinated contrast. Multiplanar reformats were generated and reviewed. All CT scans are performed using dose optimization technique as appropriate and may include automated exposure control or mA/KV adjustment according to patient size. FINDINGS: The lungs show nonspecific small regions of peripheral patchy ground-glass opacification i n the upper lobes, near the apex on the left, and peripherally approximating the minor fissure on the right. Elevation of the right hemidiaphragm is noted No pleural or pericardial effusion.No intrathor acic adenopathy. The liver demonstrates micro nodular outer contour. Small gallstones near the neck largest measuring 8 mm. Spleen, pancreas, adrenal glands and kidneys are within normal limits. No bowel obstruction, free air, or discrete fluid collections. Large volume free ascites. Small diver ticulum arising from the third part of the duodenum mostly containing gas. Diastasis recti. No patho logic lymphadenopathy in the abdomen or pelvis. No worrisome osseous finding. Multilevel spondylotic lumbosacral spine changes. Stable inferior endpl ate compression deformity with mild vertebral body height loss involving T7. Hemangioma within body o f T4 is also stable. Right hip arthroplasty hardware in place, which results in streak artifact somew hat limiting evaluation of pelvic structures. IMPRESSION: Nonspecific small regions of peripheral bilateral upper lobe ground-glass opacification, may reflect sequelae of early interstitial lung disease or an atypical mild infectious/inflammatory process. Nodular contour of the liver suggesting cirrhosis. Large volume free ascites. Cholelithiasis. Other stable findings as above.
--- NOTE | 2023-11-24 18:03 | EDPHYS ---
Physician Documentation [facility] Name: Payal Munoz Age: 83 yrs Sex: Female : 1940 Arrival Date: 11/24/2023 Time: 12:41 Bed 3 Private MD: ED Physician Nolan Durán HPI: 11/23 13:10 This 83 yrs old Female presents to ER via EMS with complaints of Abdominal Pain. sb4 13:10 patient presents with complaints of abdominal swelling, abdominal pain, shortness of sb4 breath, and lower extremity swelling. she states that this has been gradually getting worse over the past few weeks. she denies any chest pain, nausea, vomiting, diarrhea, fever, chills. she denies any known history of cirrhosis or liver failure. Historical: - Allergies: 12:44 No Known Allergies; ld1 - PMHx: 12:44 Rheumatoid Arthritis; traumatic brain hemorrahage (Unknown); ld1 - PSHx: 12:44 bilateral feet; back; Bilateral lens replacement; bilateral knee replacement; ld1 hysterectomy; right hip sx; - Immunization history:: Adult Immunizations unknown. - Infectious Disease History:: Denies. - Social history:: Smoking status: Patient denies any tobacco usage or history of. ROS: 13:12 Constitutional: Negative for fever, chills, and weight loss, sb4 13:12 Cardiovascular: Positive for edema, 13:12 Respiratory: Positive for shortness of breath, 13:12 Abdomen/GI: Positive for abdominal pain, abdominal distension, 13:12 All other systems are negative, Exam: 13:13 Head/Face: Normocephalic, atraumatic. Eyes: Extra-ocular motions intact. Periorbital sb4 areas with no swelling, redness, or edema. ENT: Mucous membranes moist. Cardiovascular: Regular rate and rhythm with a normal S1 and S2. Respiratory: Lungs have equal breath sounds bilaterally, clear to auscultation and percussion. No rales, rhonchi or wheezes noted. No increased work of breathing, no retractions or nasal flaring. Skin: Warm, dry with normal turgor. Normal color with no rashes, no lesions, and no evidence of cellulitis. 13:13 Constitutional: The patient appears in no acute distress, alert, awake, 13:13 Cardiovascular: Edema: 3+ edema to level of left midcalf, left ankle, left foot, left toes, right midcalf, right ankle, right foot and right toes, 13:13 Abdomen/GI: Inspection: distension, that is moderate, in the right upper quadrant, left upper quadrant, right lower quadrant and left lower quadrant, Vital Signs: 13:00 BP 140 / 52; Pulse 102; Resp 18; Temp 97.8; Pulse Ox 99% on R/A; Weight 81.65 kg; ph Height 5 ft. 0 in. ; 13:57 BP 118 / 66; Pulse 101; Resp 18; Pulse Ox 99% on R/A; ld1 14:57 BP 133 / 65; Pulse 95; Resp 18; Pulse Ox 97% on R/A; ph 16:00 BP 156 / 56; Pulse 97; Resp 18; Pulse Ox 99% on R/A; ph 17:00 BP 134 / 57; Pulse 100; Resp 16; Pulse Ox 99% on R/A; ph 18:30 BP 136 / 58; Pulse 97; Resp 18; Temp 97.9; Pulse Ox 99% on R/A; ph 13:00 Body Mass Index 35.15 (81.65 kg, 152.4 cm) ph MDM: 13:01 Patient medically screened. sb4 13:14 External Records Reviewed: Inpatient record: short stay summary note from Dr. Floyd on sb4 08/30/23 reveals a diagnosis of cirrhosis that was an "incidental finding" and no further workup was recommended. 17:18 Data reviewed: vital signs, nurses notes, EMS record, half-way records, lab test sb4 result(s), EKG, radiologic studies, I have discussed the patient's presentation/case with the attending Emergency Department Physician; and as a result, I will discharge patient. Consideration of Admission/Observation Escalation of care including admission/observation considered. Management of patient was discussed with the following: Primary Care Provider: Dr. Floyd, recommends starting pt on diuretic . Counseling: I had a detailed discussion with the patient and/or guardian regarding the historical points, exam findings, and any diagnostic results supporting the discharge/admit diagnosis, lab results, radiology results, the need for outpatient follow up, a appliquer zigzag, to return to the emergency department if symptoms worsen or persist or if there are any questions or concerns that arise at home. 11/23 13:06 Order name: BMP; Complete Time: 15:11 sb4 11/23 13:06 Order name: CBC with Diff; Complete Time: 14:12 sb4 11/23 13:06 Order name: Hepatic Function; Complete Time: 15:11 sb4 11/23 13:06 Order name: Lipase; Complete Time: 15:11 sb4 11/23 13:06 Order name: Magnesium; Complete Time: 15:11 sb4 11/23 13:06 Order name: NT PRO-BNP; Complete Time: 15:11 sb4 11/23 13:06 Order name: PT-INR; Complete Time: 14:15 sb4 11/23 13:06 Order name: Ptt, Activated; Complete Time: 14:15 sb4 11/23 13:06 Order name: Troponin HS; Complete Time: 15:11 sb4 11/23 13:06 Order name: AMMONIA; Complete Time: 14:23 sb4 11/23 13:06 Order name: XRAY CXR (1 view); Complete Time: 14:46 sb4 11/23 15:12 Order name: CT Chest, Abdomen, Pelvis - W/Contrast; Complete Time: 16:38 sb4 11/23 13:06 Order name: EKG; Complete Time: 13:07 sb4 11/23 13:06 Order name: Cardiac monitoring; Complete Time: 13:08 sb4 11/23 13:06 Order name: EKG - Nurse/Tech; Complete Time: 13:55 sb4 11/23 13:06 Order name: IV Saline Lock; Complete Time: 13:57 sb4 11/23 13:06 Order name: Labs collected and sent; Complete Time: 13:57 sb4 11/23 13:06 Order name: O2 Per Protocol; Complete Time: 13:08 sb4 11/23 13:06 Order name: O2 Sat Monitoring; Complete Time: 13:08 sb4 EC:28 Rate is 103 beats/min. Rhythm is regular, Sinus tachycardia. LA interval is normal at sb4 174 msec. QRS interval is normal at 84 msec. QT interval is normal at 352 msec. No Q waves. T waves are Normal. No ST changes noted. Clinical impression: Sinus tachycardia. Interpreted by me. Reviewed by me. Administered Medications: 14:57 Drug: Furosemide IVP 40 mg IVP once; give over 2 minutes Route: IVP; Site: left forearm;ph 15:15 Follow up: Response: No adverse reaction ph 16:22 Drug: Magnesium Sulfate IVPB 1 grams IVPB once over 1 hrs Route: IVPB; Infused Over: 1 ph hrs; Site: left forearm; 17:30 Follow up: Response: No adverse reaction; IV Status: Completed infusion; IV Intake: ph 100ml 16:35 Drug: morphine IVP or IV 2 mg IVP once over 4 mins Route: IVP; Infused Over: 4 mins; ph Site: right antecubital; 17:00 Follow up: Response: No adverse reaction; Pain is decreased; RASS: Alert and Calm (0) ph 16:35 Drug: Ondansetron IVP 4 mg IVP once; over 2 minutes Route: IVP; Site: right antecubital;ph 17:00 Follow up: Response: No adverse reaction ph Disposition Summary: 11/24/23 18:02 Discharge Ordered Problem: an ongoing problem sb4 Symptoms: have improved sb4 Condition: Stable sb4 Diagnosis - Cirrhosis with ascites sb4 - Hypomagnesemia sb4 Followup: sb4 - With: Quinn Floyd MD - When: 1 week - Reason: Recheck today's complaints, Re-evaluation by your physician Discharge Instructions: - Discharge Summary Sheet sb4 - Ascites sb4 - Hypomagnesemia sb4 Forms: - Patient Portal Instructions sb4 - Leadership Thank You Letter sb4 Addendum: 11/28/2023 16:08 I was immediately available for consultation during this patient's visit. I did not e c2 personally see the patient or discuss the patient with the JOVANNY. . Signatures: Dispatcher [employer] Carla Green RN RN Shikha Gómez RN RN ld1 Riri Gage PA-C PAErnie sb4 Nolan Durán MD MD ec2 Corrections: (The following items were deleted from the chart) 11/23 14:04 13:07 PROTIME (+INR)+COAG.LAB.BRZ ordered. CEDRICK PHILIP
--- NOTE | 2023-11-24 18:03 | ER ---
Nurse's Notes [facility] Name: Payal Munoz Age: 83 yrs Sex: Female : 1940 Arrival Date: 11/24/2023 Time: 12:41 Bed 3 Private MD: Diagnosis: Cirrhosis with ascites;Hypomagnesemia Presentation: 11/23 13:00 Chief complaint: EMS states: Pt from [place], EMS called for SOB that started last ph night, leg and abdominal swelling that has been getting progressively worse for a few weeks, pt hs of cirrhosis, VSS. Coronavirus screen: Vaccine status: Patient reports receiving the 2nd dose of the covid vaccine. Ebola Screen: No symptoms or risks identified at this time. Initial Sepsis Screen: Does the patient meet any 2 criteria? No. Patient's initial sepsis screen is negative. Does the patient have a suspected source of infection? No. Patient's initial sepsis screen is negative. Risk Assessment: Do you want to hurt yourself or someone else? Patient reports no desire to harm self or others. Onset of symptoms was November 24, 2023. 13:00 Method Of Arrival: EMS: [facility] 13:00 Acuity: THI 2 ph Triage Assessment: 13:13 General: Appears in no apparent distress. Behavior is calm, cooperative. Pain: ph Complains of pain in abdomen. Neuro: Level of Consciousness is awake, alert, obeys commands, Oriented to person, place, time, situation. Cardiovascular: Reports shortness of breath, Capillary refill < 3 seconds in bilateral fingers Patient's skin is warm and dry. Edema is 4+ to left midcalf, left ankle, left foot, right midcalf, right ankle and right foot. Respiratory: Reports shortness of breath Airway is patent Respiratory effort is even, unlabored. GI: Abdomen is distended, noted to have ascites, Reports lower abdominal pain, upper abdominal pain, Patient currently denies nausea, vomiting. Derm: Skin is fragile, is thin, Skin is pink, warm \T\ dry. Musculoskeletal: Circulation, motion, and sensation intact. Historical: - Allergies: 12:44 No Known Allergies; ld1 - PMHx: 12:44 Rheumatoid Arthritis; traumatic brain hemorrahage (Unknown); ld1 - PSHx: 12:44 bilateral feet; back; Bilateral lens replacement; bilateral knee replacement; ld1 hysterectomy; right hip sx; - Immunization history:: Adult Immunizations unknown. - Infectious Disease History:: Denies. - Social history:: Smoking status: Patient denies any tobacco usage or history of. Screenin:14 [facility] ED Fall Risk Assessment (Adult) History of falling in the last 3 months, ph including since admission Yes- single mechanical fall (1 pt) Confusion or Disorientation No (0 pts) Intoxicated or Sedated No (0 pts) Impaired Gait Yes (1 pt) Mobility Assist Device Used Yes (1 pt) Altered Elimination Yes (1 pt) Score/Fall Risk Level 3 or more points = High Risk Oriented to surroundings, Maintained a safe environment, Hourly rounding (assess needs \T\ fall precautionary measures) done, Used ambulatory aids as needed (educated on \T\ assisted with). Abuse screen: Denies threats or abuse. Denies injuries from another. Nutritional screening: No deficits noted. Tuberculosis screening: No symptoms or risk factors identified. Assessment: 14:01 General: SEE TRIAGE ASSESSMENT. ph 15:30 Reassessment: Patient appears in no apparent distress at this time. Patient and/or ph family updated on plan of care and expected duration. Pain level reassessed. Patient is alert, oriented x 3, equal unlabored respirations, skin warm/dry/pink. 17:00 Reassessment: Patient appears in no apparent distress at this time. Patient and/or ph family updated on plan of care and expected duration. Pain level reassessed. Patient is alert, oriented x 3, equal unlabored respirations, skin warm/dry/pink. 18:09 Reassessment: Called [place] to arrange transportation back to [place]. Nurse ld1 reports she will call back with [facility]. 18:49 Reassessment: Patient appears in no apparent distress at this time. Patient and/or ph family updated on plan of care and expected duration. Pain level reassessed. Patient is alert, oriented x 3, equal unlabored respirations, skin warm/dry/pink. Pt transported back to [place] by [facility]. Vital Signs: 13:00 BP 140 / 52; Pulse 102; Resp 18; Temp 97.8; Pulse Ox 99% on R/A; Weight 81.65 kg; ph Height 5 ft. 0 in. ; 13:57 BP 118 / 66; Pulse 101; Resp 18; Pulse Ox 99% on R/A; ld1 14:57 BP 133 / 65; Pulse 95; Resp 18; Pulse Ox 97% on R/A; ph 16:00 BP 156 / 56; Pulse 97; Resp 18; Pulse Ox 99% on R/A; ph 17:00 BP 134 / 57; Pulse 100; Resp 16; Pulse Ox 99% on R/A; ph 18:30 BP 136 / 58; Pulse 97; Resp 18; Temp 97.9; Pulse Ox 99% on R/A; ph 13:00 Body Mass Index 35.15 (81.65 kg, 152.4 cm) ph ED Course: 12:44 Patient arrived in ED. ld1 13:00 Carla Etienne, MONIQUE is Primary Nurse. ph 13:00 Riri Gage PA-C is PHCP. sb4 13:00 Nolan Durán MD is Attending Physician. sb4 13:05 Arm band placed on Patient placed in an exam room, on a stretcher, on cardiac tech, ph on pulse oximetry. 13:05 Triage completed. ph 13:15 Patient has correct armband on for positive identification. Bed in low position. Call ph light in reach. Side rails up X2. Client placed on continuous cardiac and pulse oximetry monitoring. NIBP monitoring applied. residential monitor on. Door closed. Noise minimized. Warm blanket given. 13:45 Missed attempt(s): 22 gauge in left antecubital area. Bleeding controlled, band aid ph applied, catheter tip intact. Missed attempt(s): 24 gauge in left forearm. Bleeding controlled, band aid applied, catheter tip intact. 13:57 AMMONIA Sent. ld1 14:03 Missed attempt(s): 22 gauge in right forearm. Bleeding controlled, band aid applied, zm catheter tip intact. 14:03 Initial lab(s) drawn, by ri, sent to lab. Inserted saline lock: 22 gauge in left zm forearm, using aseptic technique. Blood collected. Flushed with 10 mL NS. 14:04 BMP Sent. zm 14:04 CBC with Diff Sent. zm 14:04 Hepatic Function Sent. zm 14:04 Lipase Sent. zm 14:04 Magnesium Sent. zm 14:04 NT PRO-BNP Sent. zm 14:04 Ptt, Activated Sent. zm 14:04 Troponin HS Sent. zm 14:23 XRAY CXR (1 view) In Process Unspecified. EDMS 15:32 CT Chest, Abdomen, Pelvis - W/Contrast In Process Unspecified. EDMS 17:48 No provider procedures requiring assistance completed. ph 18:02 Quinn Floyd MD is Referral Physician. sb4 18:51 IV discontinued, intact, bleeding controlled, No redness/swelling at site. Pressure ph dressing applied. Administered Medications: 14:57 Drug: Furosemide IVP 40 mg IVP once; give over 2 minutes Route: IVP; Site: left forearm;ph 15:15 Follow up: Response: No adverse reaction ph 16:22 Drug: Magnesium Sulfate IVPB 1 grams IVPB once over 1 hrs Route: IVPB; Infused Over: 1 ph hrs; Site: left forearm; 17:30 Follow up: Response: No adverse reaction; IV Status: Completed infusion; IV Intake: ph 100ml 16:35 Drug: morphine IVP or IV 2 mg IVP once over 4 mins Route: IVP; Infused Over: 4 mins; ph Site: right antecubital; 17:00 Follow up: Response: No adverse reaction; Pain is decreased; RASS: Alert and Calm (0) ph 16:35 Drug: Ondansetron IVP 4 mg IVP once; over 2 minutes Route: IVP; Site: right antecubital;ph 17:00 Follow up: Response: No adverse reaction ph Medication: 13:15 VIS not applicable for this client. ph Intake: 17:30 IV: 100ml; Total: 100ml. ph Outcome: 18:02 Discharge ordered by . sb4 18:50 [facility]. ph 18:50 Condition: stable 18:50 Discharge instructions given to patient, family, jail, Instructed on discharge instructions, follow up and referral plans. Demonstrated understanding of instructions, follow-up care, 18:51 Patient left the ED. ph Signatures: Dispatcher [employer] EDCarla Cartagena RN RN ph Shikha Gómez RN RN ld1 Irais Peoples Sophia, PA-C PA-C sb4 Corrections: (The following items were deleted from the chart) 14:04 14:04 PROTIME (+INR)+COAG.LAB.BRZ drawn and sent. humza JACOBVA
[2023-11-24 19:17] VITALS: O2SAT 99
[2023-11-24 19:19] VITALS: BP 136/58; TEMP 97.9
--- NOTE | 2023-11-25 13:30 | EKG ---
Test Date: 2023-11-24 Test Time: 13:24:38 Enrolled Nurse: PH MEASUREMENT RESULTS: Intervals: Rate: 103 MO: 174 QRSD: 84 QT: 352 QTc: 461 [place]: P: 12 MO: 174 QRS: 4 T: -1 INTERPRETIVE STATEMENTS: Sinus tachycardia Minimal voltage criteria for LVH, may be normal variant Inferior infarct, age undetermined Abnormal ECG Compared to ECG 08/29/2023 19:12:27 Left ventricular hypertrophy now present Sinus rhythm no longer present Prolonged QT interval no longer present Myocardial infarct finding still present Electronically Signed On 11-25-23 13:27:46 CDT by Ajay Matthews
== END 2023-11-24 18:51 | disposition home or self-care (01) ==
LOC: ER 12:41
DX: K74.60 Unspecified cirrhosis of liver (principal); R18.8 Other ascites; E83.42 Hypomagnesemia; M06.9 Rheumatoid arthritis, unspecified
CPT/HCPCS: 93005; 85025; 80048; 36415; 82140; 83735; 85610; 80076; 85730; 84484; 83690; 83880; 71260; 74177; 71045; 99285; Q9967; J3475; J1940; J2270; J2405

== ENCOUNTER 2023-11-25 12:57 | Emergency (ER) | payer OTHER, BC ==
--- NOTE | 2023-11-25 14:20 | EDPHYS ---
Physician Documentation [facility] Name: Payal Munoz Age: 83 yrs Sex: Female : 1940 Arrival Date: 11/25/2023 Time: 12:57 Bed 6 Private MD: ED Physician Jason Grace HPI: 11/24 15:19 This 83 yrs old Female presents to ER via EMS with complaints of Abdominal Swelling, rt Abdominal Pain. 15:19 Patient with history of cirrhosis, ascites presents to the ED with continued pain from rt ascites. Was seen in the ED yesterday, subsequent discharged as there was no emergent indications for paracentesis. Denies difficulty breathing, reports mild cough. Denies other acute complaints at this time, symptoms are moderate in severity, no other aggravating or alleviating factors.. Historical: - Allergies: 13:00 Tape; iw - Home Meds: 13:12 Aldactone 25 mg Oral tablet daily [Active]; amitriptyline 25 mg Oral tablet every day iw at bedtime [Active]; aspirin 81 mg Oral tablet,chewable 2 times per day [Active]; Vitamin B-12 Oral daily [Active]; Creon 36,000-114,000- 180,000 unit oral capsule,delayed release (e.c.) 3 times per day [Active]; docusate sodium 100 mg oral capsule 2 times per day [Active]; folic acid 1 mg Oral tablet daily [Active]; furosemide 40 mg Oral tablet 2 times per day [Active]; gabapentin 300 mg oral capsule daily [Active]; magnesium oxide 400 mg magnesium Oral capsule 2 caps 2 times per day [Active]; omeprazole 20 mg Oral capsule,delayed release (e.c.) daily [Active]; - PMHx: 13:00 Rheumatoid Arthritis; traumatic brain hemorrahage (Unknown); Cirrhosis of liver; iw Hypertensive disorder; GERD; - PSHx: 13:00 bilateral feet; back; bilateral knee replacement; Bilateral lens replacement; iw hysterectomy; right hip sx; - Immunization history:: Adult Immunizations up to date. - Infectious Disease History:: Denies. - Family history:: not pertinent. - Social history:: Smoking status: Patient denies any tobacco usage or history of. ROS: 15:19 Constitutional: Negative for fever, chills, and weight loss, Cardiovascular: Negative rt for chest pain, palpitations, and edema, MS/Extremity: Negative for injury and deformity, Skin: Negative for injury, rash, and discoloration, Neuro: Negative for headache, weakness, numbness, tingling, and seizure, 15:19 Respiratory: Positive for cough, Negative for shortness of breath, 15:19 Abdomen/GI: Positive for abdominal pain, Distention, Exam: 15:19 Constitutional: This is a well developed, well nourished patient who is awake, alert, rt and in no acute distress. Head/Face: Normocephalic, atraumatic. Chest/axilla: Normal chest wall appearance and motion. Nontender with no deformity. No lesions are appreciated. Cardiovascular: Regular rate and rhythm with a normal S1 and S2. No gallops, murmurs, or rubs. Normal PMI, no JVD. No pulse deficits. Respiratory: Lungs have equal breath sounds bilaterally, clear to auscultation and percussion. No rales, rhonchi or wheezes noted. No increased work of breathing, no retractions or nasal flaring. Skin: Warm, dry with normal turgor. Normal color with no rashes, no lesions, and no evidence of cellulitis. MS/ Extremity: Pulses equal, no cyanosis. Neurovascular intact. Full, normal range of motion. Neuro: Awake and alert, GCS 15, oriented to person, place, time, and situation. Cranial nerves II-XII grossly intact. Motor strength 5/5 in all extremities. Sensory grossly intact. Cerebellar exam normal. Normal gait. 15:19 Abdomen/GI: Mildly ascitic abdomen, minimally tender. No tense ascites., Vital Signs: 13:01 BP 118 / 57; Pulse 92; Resp 20; Pulse Ox 100% on R/A; Weight 76.2 kg; Height 5 ft. 1 iw in. ; Pain 6/10; 14:04 BP 120 / 60; Pulse 93; Pulse Ox 99% on R/A; tm6 13:01 Body Mass Index 31.74 (76.20 kg, 154.94 cm) iw 13:01 Pain Scale: Adult iw Procedures: 15:19 Ultrasound: Type: Abdominal, performed by the emergency department physician, Bedside rt ultrasound performed, ascites noted, however, the bowel is close to the abdominal wall, no safe windows for paracentesis attempt. MDM: 13:04 Patient medically screened. rt 15:19 Differential Diagnosis Ascites. Data reviewed: vital signs, nurses notes. Management of rt patient was discussed with the following: Primary Care Provider: Discussed with Dr. Floyd, states that he did not send the patient to the emergency department. States that there is no emergent indications for paracentesis, the patient should follow-up with Dr. Gautam on Tuesday.. Test considered but Not performed: Other Details Reviewed the patient's labs, CT scan from yesterday, no significant change in symptoms, repeat imaging and labs are not indicated. Care significantly affected by the following chronic conditions: Cirrhosis. Counseling: I had a detailed discussion with the patient and/or guardian regarding the historical points, exam findings, and any diagnostic results supporting the discharge/admit diagnosis, the need for outpatient follow up, to return to the emergency department if symptoms worsen or persist or if there are any questions or concerns that arise at home. Administered Medications: No medications were administered Disposition Summary: 11/25/23 14:19 Discharge Ordered Notes: Location: Home rt Problem: new rt Symptoms: are unchanged rt Condition: Stable rt Diagnosis - Other ascites rt Followup: rt - With: Rosario Gautam MD - When: 2 - 3 days - Reason: Discharge Instructions: - Discharge Summary Sheet rt - Ascites rt Forms: - Medication Reconciliation Form rt - Antibiotic Education rt - Prescription Opioid Use rt - Patient Portal Instructions rt - Leadership Thank You Letter rt Prescriptions: - Tramadol 50 mg Oral Tablet - take 1 tablet ORAL route every 8 hours as needed; 12 tablet; Refills: 0, rt Product Selection Permitted Signatures: Gale Hobbs RN RN iw Jason Grace MD MD rt
--- NOTE | 2023-11-25 14:20 | ER ---
Nurse's Notes [facility] Name: Payal Munoz Age: 83 yrs Sex: Female : 1940 Arrival Date: 11/25/2023 Time: 12:57 Bed 6 Private MD: Diagnosis: Other ascites Presentation: 11/24 12:59 Chief complaint: EMS states: abd swelling and "soreness", hx of cirrhosis , was seen in ER yesterday. Coronavirus screen: At this time, the client does not indicate any symptoms associated with coronavirus-19. Ebola Screen: No symptoms or risks identified at this time. Risk Assessment: Do you want to hurt yourself or someone else? Patient reports no desire to harm self or others. Onset of symptoms was November 25, 2023. 12:59 Method Of Arrival: EMS: [facility] 12:59 Acuity: THI 3 iw 12:59 Initial Sepsis Screen: Does the patient meet any 2 criteria? No. Patient's initial iw sepsis screen is negative. Does the patient have a suspected source of infection? No. Patient's initial sepsis screen is negative. Historical: - Allergies: 13:00 Tape; iw - Home Meds: 13:12 Aldactone 25 mg Oral tablet daily [Active]; amitriptyline 25 mg Oral tablet every day iw at bedtime [Active]; aspirin 81 mg Oral tablet,chewable 2 times per day [Active]; Vitamin B-12 Oral daily [Active]; Creon 36,000-114,000- 180,000 unit oral capsule,delayed release (e.c.) 3 times per day [Active]; docusate sodium 100 mg oral capsule 2 times per day [Active]; folic acid 1 mg Oral tablet daily [Active]; furosemide 40 mg Oral tablet 2 times per day [Active]; gabapentin 300 mg oral capsule daily [Active]; magnesium oxide 400 mg magnesium Oral capsule 2 caps 2 times per day [Active]; omeprazole 20 mg Oral capsule,delayed release (e.c.) daily [Active]; - PMHx: 13:00 Rheumatoid Arthritis; traumatic brain hemorrahage (Unknown); Cirrhosis of liver; iw Hypertensive disorder; GERD; - PSHx: 13:00 bilateral feet; back; bilateral knee replacement; Bilateral lens replacement; iw hysterectomy; right hip sx; - Immunization history:: Adult Immunizations up to date. - Infectious Disease History:: Denies. - Family history:: not pertinent. - Social history:: Smoking status: Patient denies any tobacco usage or history of. Screenin:00 [facility] ED Fall Risk Assessment (Adult) History of falling in the last 3 months, iw including since admission No falls in past 3 months (0 pts) Confusion or Disorientation No (0 pts) Intoxicated or Sedated No (0 pts) Impaired Gait Yes (1 pt) Mobility Assist Device Used Yes (1 pt) Altered Elimination No (0 pt) Score/Fall Risk Level 0 - 2 = Low Risk Oriented to surroundings, Maintained a safe environment. 13:10 [facility] ED Fall Risk Assessment (Adult) History of falling in the last 3 months, iw including since admission. Abuse screen: Denies injuries from another. Nutritional screening: No deficits noted. Tuberculosis screening: No symptoms or risk factors identified. Assessment: 13:09 General: Appears in no apparent distress. Behavior is calm, cooperative. Pain: iw Complains of pain in right lower quadrant and left lower quadrant. Neuro: Morales Agitation-Sedation Scale (RASS): Level of Consciousness is awake, alert, obeys commands, Oriented to person, place, time, Moves all extremities. Cardiovascular: Patient's skin is warm and dry. Respiratory: Reports shortness of breath on exertion Respiratory effort is even, unlabored, Respiratory pattern is regular, symmetrical. GI: Abdomen is distended, noted to have ascites, Abd is non tender X 4 quads Reports lower abdominal pain. Derm: Skin is fragile, is thin, Skin is normal. Musculoskeletal: Range of motion: intact in all extremities. 14:39 Reassessment: Patient appears in no apparent distress at this time. Patient and/or iw family updated on plan of care and expected duration. Pain level reassessed. Patient is alert, oriented x 3, equal unlabored respirations, skin warm/dry/pink. 14:57 Reassessment: report called to [facility] nurse. was informed they will call ap3 back with an ETA for transportation. Vital Signs: 13:01 BP 118 / 57; Pulse 92; Resp 20; Pulse Ox 100% on R/A; Weight 76.2 kg; Height 5 ft. 1 iw in. ; Pain 6; 14:04 BP 120 / 60; Pulse 93; Pulse Ox 99% on R/A; tm6 13:01 Body Mass Index 31.74 (76.20 kg, 154.94 cm) iw 13:01 Pain Scale: Adult iw ED Course: 12:58 Patient arrived in ED. iw 12:59 Jason Grace MD is Attending Physician. rt 13:00 Triage completed. iw 13:01 Arm band placed on. iw 13:01 Patient has correct armband on for positive identification. Client placed on continuous iw cardiac and pulse oximetry monitoring. NIBP monitoring applied. Pulse ox on. 13:05 Provided Education on: POC. iw 13:09 Gale Hobbs, RN is Primary Nurse. iw 14:19 Rosario Gautam MD is Referral Physician. rt 14:39 No provider procedures requiring assistance completed. Patient did not have IV access iw during this emergency room visit. Administered Medications: No medications were administered Medication: 13:10 VIS not applicable for this client. iw Outcome: 14:19 Discharge ordered by MD. rt 15:30 Discharged to skilled nursing. iw 15:30 Condition: good 15:30 Discharge instructions given to patient, family, Instructed on discharge instructions, Demonstrated understanding of instructions, follow-up care, 15:34 Patient left the ED. iw Signatures: Gale Hobbs, RN MONIQUE iw Angely Villarreal RN RN ap3 Jason Grace MD MD rt Yumiko Daly RN RN tm6
[2023-11-25 15:57] VITALS: BP 120/60; O2SAT 99
== END 2023-11-25 15:34 | disposition home or self-care (01) ==
LOC: ER 12:57
DX: R18.8 Other ascites (principal); K74.60 Unspecified cirrhosis of liver; I10 Essential (primary) hypertension; Z79.82 Long term (current) use of aspirin
CPT/HCPCS: 99283

== ENCOUNTER 2023-12-14 06:41 | Emergency (ER) | payer OTHER, BC ==
[2023-12-14] MEDS ORDERED: IPRATROPIUM BROM 0.5MG/2.5ML ONE (07:16)
[2023-12-14] MEDS ORDERED: HYDROCORTISONE SUC 100 MG INJ ONE (07:16)
[2023-12-14] MEDS ORDERED: ALBUTEROL 2.5 MG/3 ML NEB SOL ONE (07:16)
[2023-12-14] MEDS ORDERED: NA CHLORIDE 0.9% 100 ML ONE (07:21)
[2023-12-14] MEDS ORDERED: Meropenem 1000 MG/VIAL IV ONE (07:21)
[2023-12-14 07:38] LABS: SARS-CoV-2 Antigen CONTROL BLUE LINE VIS/BG OK; SARS-CoV-2 Antigen Rapid Res Negative (Negative)
--- NOTE | 2023-12-14 07:48 | RAD REPORT ---
EXAMINATION: ONE VIEW CHEST XR CLINICAL INDICATION: Female, 83 years old. Shortness of breath. TECHNIQUE: 1 View, AP supine, X-ray of the chest was performed. [id number]. COMPARISON: No prior exam. FINDINGS: Moderate bilateral pulmonary opacities have developed since the prior study dated 11/24/2023. Most lik ann, this indicates pulmonary edema or pneumonia. Heart is upper normal in size. No fracture seen.
[2023-12-14 07:49] LABS: Blood Gas Oxyhemoglobin 87.6 % (94-97); Blood Gas THB 11.5 g/dl (12-18); Blood O2 Saturation 90.4 % (92-98.5)
--- NOTE | 2023-12-14 07:58 | ER ---
Nurse's Notes [facility] Name: Payal Munoz Age: 83 yrs Sex: Female : 1940 Arrival Date: 12/14/2023 Time: 06:41 Bed 3 Private MD: Diagnosis: Acute pulmonary edema;Acute respiratory failure-, ACUTE RENAL FAILURE, LIVER CIRRHOSIS, HYPOXIA, DEHYDRATION Presentation: 12/13 06:53 Chief complaint: EMS states: Found by care home staff unresponsive, off NC, last hb seen normal at 0300. Coronavirus screen: At this time, the client does not indicate any symptoms associated with coronavirus-19. Ebola Screen: No symptoms or risks identified at this time. Initial Sepsis Screen: Does the patient meet any 2 criteria? No. Patient's initial sepsis screen is negative. Does the patient have a suspected source of infection? No. Patient's initial sepsis screen is negative. Risk Assessment: Do you want to hurt yourself or someone else? Patient reports no desire to harm self or others. Onset of symptoms was December 14, 2023. 06:53 Method Of Arrival: EMS: [facility] 06:53 Acuity: THI 2 hb Triage Assessment: 07:00 General: Appears distressed, Behavior is agitated, anxious. Pain: Unable to use pain bp scale. Does not appear to understand pain scale. EENT: No deficits noted. Neuro: Level of Consciousness is confused, lethargic. Cardiovascular: Rhythm is sinus tachycardia. Respiratory: Patient placed on BiPAP: Inspiratory Pressure: 14 Expiratory (EPAP) Pressure: 6 FiO2%: 65 Breath sounds with wheezes bilaterally. Historical: - Allergies: 06:55 Tape; hb - Home Meds: 06:55 Aldactone 25 mg Oral tablet daily [Active]; amitriptyline 25 mg Oral tablet every day hb at bedtime [Active]; aspirin 81 mg Oral tablet 2 times per day [Active]; Creon 36 Oral capsule 3 times per day [Active]; docusate sodium 100 mg Oral capsule 2 times per day [Active]; folic acid 1 mg Oral tablet daily [Active]; folic acid 1 mg Oral tablet daily [Active]; furosemide 40 mg Oral tablet 2 times per day [Active]; gabapentin 300 mg Oral capsule daily [Active]; magnesium oxide 400 mg magnesium Oral capsule 2 caps 2 times per day [Active]; omeprazole 20 mg Oral capsule daily [Active]; Vitamin B-12 Oral daily [Active]; - PMHx: 06:55 traumatic brain hemorrahage (Unknown); Hypertensive disorder; cirrhosis of liver; GERD; hb Rheumatoid Arthritis; - PSHx: 06:55 bilateral feet; bilateral knee replacement; Bilateral lens replacement; back; hb hysterectomy; right hip sx; - Immunization history:: Adult Immunizations up to date. - Infectious Disease History:: Denies. - Social history:: Smoking status: Patient/guardian denies using tobacco. - Family history:: not pertinent. Screenin:00 [facility] ED Fall Risk Assessment (Adult) History of falling in the last 3 months, bp including since admission No falls in past 3 months (0 pts) Confusion or Disorientation Yes (5 pts) Intoxicated or Sedated No (0 pts) Impaired Gait Yes (1 pt) Mobility Assist Device Used No (0 pt) Altered Elimination No (0 pt) Score/Fall Risk Level 0 - 2 = Low Risk. Abuse screen: Denies threats or abuse. Denies injuries from another. Nutritional screening: No deficits noted. Tuberculosis screening: No symptoms or risk factors identified. Assessment: 07:00 General: RECD REPORT FROM [facility] AMAYA. 83YO WF FROM [facility] P/W AMS AND bp HYPOXIA. PT PLACED ON BIPAP. FAMILY AFFIRMS DNR/DNI. Pain: Denies pain. 09:00 Reassessment: PT TBA IN-HOSPITAL HOSPICE. DR FLOYD AT B/S, ORDERS PENDING. bp 10:50 Reassessment: PT ADMIT TO IN PATIENT HOSPICE, SEE [facility]. bp Vital Signs: 06:53 BP 106 / 51; Pulse 107; Resp 26; Temp 96.9(TE); Pulse Ox 57% on R/A; Weight 70.76 kg hb (M); Pain 0/10; 07:00 BP 91 / 48; Pulse 99; Resp 26; Pulse Ox 91% on 4 lpm NC; bp 08:00 BP 94 / 43; Pulse 98; Resp 32; Pulse Ox 94% on BiPAP; FiO2 65 %; bp 09:00 BP 82 / 53; Pulse 101; Resp 29; Pulse Ox 94% on BiPAP; FiO2 65 %; bp 10:50 BP 99 / 57; Pulse 101; Resp 28; Pulse Ox 93% ; bp 06:53 Pain Scale: Adult hb [place] Coma Score: 07:49 Eye Response: to voice(3). Motor Response: localizes pain(5). Verbal Response: sp4 confused(4). Total: 12. ED Course: 06:47 Patient arrived in ED. vk 06:54 Jerry Ocasio MD is Attending Physician. sp4 06:55 Triage completed. hb 06:56 Arm band placed on. hb 07:00 Patient has correct armband on for positive identification. bp 07:02 Jimenez Mae, RN is Primary Nurse. bp 07:23 Chest Single View XRAY In Process Unspecified. EDMS 07:56 Quinn Floyd MD is Hospitalizing Provider. sp4 08:00 Initial lab(s) drawn, by me, sent to lab. First set of blood cultures drawn by me, bp Second set of blood cultures drawn by me, COVID swab sent to lab. Flu and/or RSV swab sent to lab. Inserted saline lock: 22 gauge in left wrist, using aseptic technique. Blood collected. Flushed with 10 mL NS. 08:25 Notified primary nurse of lactate 6.4. ll1 10:24 Attending Physician role handed off by Jerry Ocasio MD titus 10:24 Jack Vela MD is Attending Physician. titus 10:26 Quinn Floyd MD is Referral Physician. titus 10:51 No provider procedures requiring assistance completed. Patient admitted, IV remains in bp place. Administered Medications: 07:34 Drug: Albuterol Inhalation 2.5 mg Inhalation once Route: Inhalation; iw 07:34 Drug: Solu-CORTEF IVP 100 mg IVP once Route: IVP; Site: right wrist; iw 10:51 Follow up: Response: No adverse reaction bp 07:35 Drug: Ipratropium Inhalation Aerosol 0.5 mg Inhalation once Route: Inhalation; iw 08:00 Drug: Meropenem IV 1 grams IV at calculated rate once; (mix in NS 100 mL) Route: IV; bp Rate: calculated rate; Site: left wrist; 10:52 Follow up: IV Status: Completed infusion; IV Intake: 100ml bp 08:00 Drug: NS 0.9% IV 500 ml IV at bolus once Route: IV; Rate: bolus; Site: left wrist; bp 10:51 Follow up: IV Status: Completed infusion; IV Intake: 500ml bp 08:27 Drug: Albumin IVPB 25 grams 100 ml IVPB once; (Note: Albumin 25% concentration) Volume: bp 100 ml; Route: IVPB; Site: right wrist; 10:52 Follow up: IV Status: Completed infusion; IV Intake: 100ml bp Intake: 10:51 IV: 500ml; Total: 500ml. bp 10:52 IV: 100ml; Total: 600ml. bp 10:52 IV: 100ml; Total: 700ml. bp Outcome: 07:57 Decision to Hospitalize by Provider. rl 10:28 Discharge ordered by MD. qureshi 10:51 Discharged to IN PATIENT HOSPICE bp 10:51 Condition: unchanged 10:51 Instructed on the need for admit, 10:52 Patient left the ED. bp Signatures: Dispatcher [employer] EDJack Sharp MD MD cha Williams, Irene, RN RN iw Baxter, Heather, RN RN Jimenez Mae RN RN bp Lewis, Lynsay, RN RN [facility] Jerry Ocasio MD MD sp4 Kruse, Vivian vk
--- NOTE | 2023-12-14 07:58 | EDPHYS ---
Physician Documentation [facility] Name: Payal Munoz Age: 83 yrs Sex: Female : 1940 Arrival Date: 12/14/2023 Time: 06:41 Bed 3 Private MD: Jack Grimaldo HPI: 12/13 06:56 This 83 yrs old Female presents to ER via EMS with complaints of AMS. sp4 07:49 83-year-old female with history of multiple medical illnesses, liver cirrhosis, history sp4 of bilateral knee replacement, spinal surgery, right hip surgery, history of traumatic brain hemorrhage, hypertensive disorder, GERD, presents with EMS for acute unresponsiveness and respiratory distress. Patient presents from correction where she reports to be DNR/DNI . transportation operations manager is Dr. Floyd. . Historical: - Allergies: 06:55 Tape; hb - Home Meds: 06:55 Aldactone 25 mg Oral tablet daily [Active]; amitriptyline 25 mg Oral tablet every day hb at bedtime [Active]; aspirin 81 mg Oral tablet 2 times per day [Active]; Creon 36 Oral capsule 3 times per day [Active]; docusate sodium 100 mg Oral capsule 2 times per day [Active]; folic acid 1 mg Oral tablet daily [Active]; folic acid 1 mg Oral tablet daily [Active]; furosemide 40 mg Oral tablet 2 times per day [Active]; gabapentin 300 mg Oral capsule daily [Active]; magnesium oxide 400 mg magnesium Oral capsule 2 caps 2 times per day [Active]; omeprazole 20 mg Oral capsule daily [Active]; Vitamin B-12 Oral daily [Active]; - PMHx: 06:55 traumatic brain hemorrahage (Unknown); Hypertensive disorder; cirrhosis of liver; GERD; hb Rheumatoid Arthritis; - PSHx: 06:55 bilateral feet; bilateral knee replacement; Bilateral lens replacement; back; hb hysterectomy; right hip sx; - Immunization history:: Adult Immunizations up to date. - Infectious Disease History:: Denies. - Social history:: Smoking status: Patient/guardian denies using tobacco. - Family history:: not pertinent. ROS: 07:49 Constitutional: Full ROS not available secondary to unresponsive condition sp4 07:49 All other systems are negative, 07:49 Unable to obtain ROS due to altered mental status, Exam: 07:49 Constitutional: Frail elderly female, ill-appearing, toxic appearing, hypoxemic on sp4 arrival in the 40s, appears dehydrated with poor skin turgor, distended protuberant abdomen with tense ascites. Acute respiratory distress impending respiratory failure Head/Face: Normocephalic, atraumatic. Eyes: Pupils equal round and reactive to light, extra-ocular motions intact. Lids and lashes normal. Conjunctiva and sclera are not injected. Cornea within normal limits. Periorbital areas with no swelling, redness, or edema. ENT: Nares patent. No nasal discharge, no septal abnormalities noted. Tympanic membranes are normal and external auditory canals are clear. Very dry mucous membranes Neck: Trachea midline, no thyromegaly or masses palpated, and no cervical lymphadenopathy. Supple, full range of motion without nuchal rigidity, or vertebral point tenderness. Chest/axilla: Normal chest wall appearance and motion. Nontender with no deformity. No lesions are appreciated. Cardiovascular: Regular rate and rhythm with a normal S1 and S2. No gallops, murmurs, or rubs. Normal PMI, no JVD. No pulse deficits. Respiratory: Lungs have equal breath sounds bilaterally, clear to auscultation and percussion. No rales, rhonchi or wheezes noted. No increased work of breathing, no retractions or nasal flaring. Abdomen/GI: Tense ascites with abdominal distention, extensive abdominal scarring from prior surgery Back: No spinal tenderness. No costovertebral tenderness. Skin: Warm, dry with normal turgor. Normal color with no rashes, no lesions, and no evidence of cellulitis. MS/ Extremity: Pulses equal, generalized pallor and peripheral cyanosis. Neuro: Alert but confused, will to state her own name Vital Signs: 06:53 BP 106 / 51; Pulse 107; Resp 26; Temp 96.9(TE); Pulse Ox 57% on R/A; Weight 70.76 kg hb (M); Pain 0/10; 07:00 BP 91 / 48; Pulse 99; Resp 26; Pulse Ox 91% on 4 lpm NC; bp 08:00 BP 94 / 43; Pulse 98; Resp 32; Pulse Ox 94% on BiPAP; FiO2 65 %; bp 09:00 BP 82 / 53; Pulse 101; Resp 29; Pulse Ox 94% on BiPAP; FiO2 65 %; bp 10:50 BP 99 / 57; Pulse 101; Resp 28; Pulse Ox 93% ; bp 06:53 Pain Scale: Adult hb Claire Coma Score: 07:49 Eye Response: to voice(3). Motor Response: localizes pain(5). Verbal Response: sp4 confused(4). Total: 12. MDM: 07:05 Patient medically screened. sp4 07:57 Differential Diagnosis altered mental status, sepsis, flu. Data reviewed: vital signs, sp4 nurses notes, EMS record, correction records, old medical records, lab test result(s), EKG, radiologic studies, plain films. ED course: EXAMINATION: ONE VIEW CHEST XR CLINICAL INDICATION: Female, 83 years old. Shortness of breath. TECHNIQUE: 1 View, AP supine, X-ray of the chest was performed. [id number]. COMPARISON: No prior exam. FINDINGS: Moderate bilateral pulmonary opacities have developed since the prior study dated 11/24/2023. Most likely, this indicates pulmonary edema or pneumonia. Heart is upper normal in size. No fracture seen. . 07:59 Consideration of Admission/Observation Escalation of care including sp4 admission/observation considered. ED course: Dr. Floyd with primary care advised admission for inpatient hospice. Family does agree that central line is not appropriate. Additional aggressive measures are not appropriate. . 12/13 06:54 Order name: Blood Culture Adult (2) [facility] 12/13 06:54 Order name: CMP [facility] 12/13 06:54 Order name: Lactate w/ 2H reflex if indic. [facility] 12/13 06:54 Order name: Protime (+inr) [facility] 12/13 06:54 Order name: Ptt, Activated [facility] 12/13 06:54 Order name: ABG; Complete Time: 08:01 [facility] 12/13 06:55 Order name: Troponin High Sensitivity [facility] 12/13 06:55 Order name: TSH [facility] 12/13 06:55 Order name: CRP [facility] 12/13 06:55 Order name: AMMONIA [facility] 12/13 07:03 Order name: Influenza Screen (a \T\ B); Complete Time: 07:45 [facility] 12/13 07:03 Order name: SARS RAPID; Complete Time: 07:45 [facility] 12/13 10:25 Order name: Ghost Lactate-NO COLLECT Timer EDND 12/13 06:54 Order name: BIPAP [facility] 12/13 06:54 Order name: Chest Single View XRAY; Complete Time: 08:01 4 12/13 06:54 Order name: Accucheck; Complete Time: 08:28 4 12/13 06:54 Order name: Cardiac monitoring; Complete Time: 06:57 4 12/13 06:54 Order name: EKG - Nurse/Tech; Complete Time: 08:34 4 12/13 06:54 Order name: IV Saline Lock - Large Bore; Complete Time: 08:06 4 12/13 06:54 Order name: Labs collected and sent; Complete Time: 08:06 4 12/13 06:54 Order name: O2 Per Protocol; Complete Time: 06:57 4 12/13 06:54 Order name: O2 Sat Monitoring; Complete Time: 06:57 4 12/13 06:54 Order name: Vital Signs; Complete Time: 06:57 sp4 Administered Medications: 07:34 Drug: Albuterol Inhalation 2.5 mg Inhalation once Route: Inhalation; iw 07:34 Drug: Solu-CORTEF IVP 100 mg IVP once Route: IVP; Site: right wrist; iw 10:51 Follow up: Response: No adverse reaction bp 07:35 Drug: Ipratropium Inhalation Aerosol 0.5 mg Inhalation once Route: Inhalation; iw 08:00 Drug: Meropenem IV 1 grams IV at calculated rate once; (mix in NS 100 mL) Route: IV; bp Rate: calculated rate; Site: left wrist; 10:52 Follow up: IV Status: Completed infusion; IV Intake: 100ml bp 08:00 Drug: NS 0.9% IV 500 ml IV at bolus once Route: IV; Rate: bolus; Site: left wrist; bp 10:51 Follow up: IV Status: Completed infusion; IV Intake: 500ml bp 08:27 Drug: Albumin IVPB 25 grams 100 ml IVPB once; (Note: Albumin 25% concentration) Volume: bp 100 ml; Route: IVPB; Site: right wrist; 10:52 Follow up: IV Status: Completed infusion; IV Intake: 100ml bp Disposition Summary: 12/14/23 10:28 Discharge Ordered Notes: Location: Home(12/14/23 10:28) titus Problem: new(12/14/23 10:28) titus Symptoms: are unchanged(12/14/23 10:28) titus Condition: Serious(12/14/23 10:28) titus Diagnosis - Acute pulmonary edema(12/14/23 10:28) titus - Acute respiratory failure - , ACUTE RENAL FAILURE, LIVER CIRRHOSIS, HYPOXIA, titus DEHYDRATION Followup: titus - With: Quinn Floyd MD - When: Upon discharge from the Emergency Department - Reason: Recheck today's complaints, Continuance of care, Re-evaluation by your physician Discharge Instructions: - Discharge Summary Sheet titus - Cirrhosis titus - Dehydration, Adult [facility]us - Pulmonary Edema titus - Acute Kidney Injury, Adult [facility]us - Hypoxemia titus - Pulmonary Edema, Usrc-Tn-Hoft titus Forms: - Medication Reconciliation Form [facility]us - Antibiotic Education [facility]us - Prescription Opioid Use titus - Patient Portal Instructions titus - Leadership Thank You Letter [facility] Critical care time excluding procedures: 08:01 Critical care time: Bedside Care: 36 minutes, Consultation: 12 minutes, Family sp4 Intervention: 12 minutes. Total time: 60 minutes Signatures: Dispatcher [employer] EDKim Camacho Corey, MD MD cha Williams, Irene, RN RN iw Radha Gold RN RN Jimenez Melendez RN RN bp Jerry Ocasio MD MD sp4 Corrections: (The following items were deleted from the chart) 06:55 06:55 BLOOD CULTURE*+BA.LAB.BRZ ordered. EDND EDMS 06:55 06:55 CBC+H.LAB.BRZ ordered. EDND EDMS 06:55 06:55 COMPREHENSIVE METABOLIC PANEL+C.LAB.BRZ ordered. EDND EDMS 06:55 06:55 LACTATE+C.LAB.BRZ ordered. EDND EDMS 06:55 06:55 PROTIME (+INR)+COAG.LAB.BRZ ordered. EDND EDMS 06:55 06:55 PTT, ACTIVATED+COAG.LAB.BRZ ordered. EDND EDMS 06:55 06:55 Urinalysis+U.LAB.BRZ ordered. EDND EDMS 06:55 06:55 Chest Single View+RAD.RAD.BRZ ordered. EDND EDMS 06:55 06:55 Arterial Blood Gas+RC.LAB.BRZ ordered. EDND EDMS 06:56 06:56 Troponin High Sensitivity+C.LAB.BRZ ordered. EDMS EDMS 06:56 06:56 THYROID STIMULAT HORMONE+C.LAB.BRZ ordered. EDMS EDMS 06:56 06:56 C-REACTIVE PROTEIN+C.LAB.BRZ ordered. EDMS EDMS 06:56 06:56 AMMONIA+C.LAB.BRZ ordered. EDMS EDMS 07:03 07:03 Influenza Screen (A \T\ B)+BA.LAB.BRZ ordered. EDMS EDMS 07:03 07:03 SARS-COV-2 Antigen Rapid+I.LAB.BRZ ordered. EDMS EDMS 09:03 07:57 Telemetry/MedSurg (Inpatient) sp4 bd 09:03 07:57 sp4 bd 10:26 07:57 Inpatient Admission sp4 titus 10:26 07:57 Quinn Floyd sp4 titus 10:26 07:57 Serious sp4 titus 10:26 07:57 new sp4 titus 10:26 07:57 have improved sp4 titus 10:26 07:57 Standard sp4 titus 10:26 07:57 Acute pulmonary edema sp4 titus 10:26 07:57 Acute respiratory failure, dehydration, acute renal failure, liver cirrhosis, titus hypoxemia, sp4 10:26 09:03 [facility] ER HOLD bd titus 10:26 09:03 ERHOLD- bd ittus
[2023-12-14] MEDS ORDERED: ALBUMIN HUMAN 25% 100 ML IV SCH (08:00)
[2023-12-14 08:18] LABS: PTT, Activated Partial Thromb 28.4 SECONDS (24.3-36.9); Protime INR 1.72
[2023-12-14 08:47] LABS: Albumin 2.1 g/dL (3.4-5.0); Albumin/Globulin Ratio 0.5 (1.1-1.8); Anion Gap 16.7 mEq/L (5.0-15.0); Bilirubin Total 1.7 mg/dL (0.2-1.0); C-Reactive Protein 22.6 mg/L (<3.00); Globulin 3.9 g/dL (2.3-3.5); Potassium 4.7 mEq/L (3.5-5.1); Thyroid Stimulating Hormone 3.72 uIU/mL (0.358-3.740); Troponin High Sensitivity 28.5 pg/mL (<58.9)
[2023-12-14] MEDS ORDERED: NA CHLORIDE 0.9% 500 ML ONE (09:14)
[2023-12-14 11:02] VITALS: TEMP 96.9
[2023-12-14 11:20] VITALS: BP 99/57; O2SAT 93
--- NOTE | 2023-12-15 16:25 | EKG ---
Test Date: 2023-12-14 Test Time: 08:39:49 Application Security Consultant: BESS MEASUREMENT RESULTS: Intervals: Rate: 100 MO: QRSD: 86 QT: 374 QTc: 482 [place]: P: MO: QRS: 30 T: 66 INTERPRETIVE STATEMENTS: Normal sinus rhythm Low voltage QRS Abnormal ECG Compared to ECG 11/24/2023 13:24:38 Low QRS voltage now present Sinus tachycardia no longer present Left ventricular hypertrophy no longer present Myocardial infarct finding no longer present Electronically Signed On 12-15-23 16:22:32 CDT by Ajay Matthews
== END 2023-12-14 10:52 | disposition home or self-care (01) ==
LOC: ER 06:41
DX: J96.01 Acute respiratory failure with hypoxia (principal); J81.0 Acute pulmonary edema; N17.9 Acute kidney failure, unspecified; K74.60 Unspecified cirrhosis of liver; E86.0 Dehydration; I10 Essential (primary) hypertension; Z79.82 Long term (current) use of aspirin; Z11.52 Encounter for screening for COVID-19
CPT/HCPCS: 93005; 87040 ×2; 36415; 82140; 85610; 83605; 85730; 84443; 84484; 80053; 86140; 87804 ×2; 71045; 82805; 99285; 87811; 36600; 94660; P9047; J7613; J7644; J2185; J1720; J7040

== ENCOUNTER 2023-12-14 10:57 | Inpatient (IN) | payer OTHER ==
[2023-12-14] MEDS ORDERED: LORazepam 2 MG/ML VIAL ONE (11:04)
[2023-12-14] MEDS ORDERED: BISACODYL 10 MG RECTAL SUPP PR PRN (11:17)
[2023-12-14] MEDS: HYDROMORPHONE HCL 1 MG/ML INJ IV SCH (11:30)
[2023-12-14] MEDS ORDERED: HYDROMORPHONE HCL 1 MG/ML INJ ONE (11:47)
[2023-12-14] MEDS: LORazepam 2 MG/ML VIAL IV SCH (11:58)
--- NOTE | 2023-12-14 13:03 | P.HP ---
Certification for Inpatient Patient admitted to: Inpatient Practitioner: I am a practitioner with admitting privileges, knowledge of patient current condition, hospital course, and medical plan of care. Services: Services provided to patient in accordance with Admission requirements found in Title 42 Section 412.3 of the Code of Federal Regulations Patient History Date of Service: 12/14/23 Reason for admission: WEAK, CONFUSED, SHORT OF BREATH History of Present Illness: PALMER IS A OLIVEIRA CIRRHOSIS PATIENT WITH LARGE ASCITES IS GETTING WORSE OVER WEEKS. SHE BECAME WEAK, SHORT OF BREATH AND UNCONSCIOUS AT [place]. THIS WAS EXPECTED. WE WERE IN PROCESS OF PLACING HER ON HOSPICE AND SHE ENDS UP IN ER. DAUGHTER IS VERY ATTENTIVE AND CONTENT WITH HER BEING ON HOSPICE HERE. SHE IN THE ER SIGNED UP PAPERS. PALMER HAS SEVERE PULMONARY EDEMA. Allergies No Known Allergies Allergy (Unverified 04/17/17 14:36) Home Medications: Amiloride HCl 5 mg PO DAILY 08/30/23 Amitriptyline [Elavil] 25 mg PO BEDTIME 08/30/23 Cefuroxime [Ceftin*] 250 mg PO BID #14 tab 08/30/23 Famotidine [Pepcid] 40 mg PO BEDTIME 08/30/23 Lipase/Protease/Amylase [Matthew Childs 36,000 Units Capsule] 1 each PO AC 08/30/23 Magnesium l-Lactate [Mag-Tab Sr] 84 mg PO Q12H 08/30/23 Montelukast [Singulair] 10 mg PO DAILY 08/30/23 PARoxetine HCL [Paxil] 10 mg PO BEDTIME 08/30/23 fentaNYL [Fentanyl] 12 mcg TD Q72H 08/30/23 - Past Medical/Surgical History Diabetic: No -: Right hip Sx 07/2023 -: Kadeem Knee Replacement -: Back sx - Family History Father -: Cancer Mother -: Stroke - Social History Alcohol use: No CD- Drugs: No Caffeine use: Yes Review of Systems is unable to be obtained Physical Examination - Physical Exam General: Moderate distress, Unresponsive, Comatose Respiratory: Diminished Cardiovascular: Normal S1 S2, Edema Gastrointestinal: Ascites Assessment and Plan - Problems (Diagnosis) (1) Respiratory failure Current Visit: Yes Status: Acute Plan: PULMONARY EDEMA. FAMILY WANTS COMFORT CARE PATIENT IS ALREADY COMATOSE. WILL REMOVE BIPAP WHEN SHE IS SITUATED AND FAMILY IS OKAY WITH IT. (2) Cirrhosis Current Visit: No Status: Chronic Plan: SEVERE ASCITES. END STAGE. Qualifiers: Ascites presence: with ascites - Advance Directives Does patient have a Living Will: No Does patient have a Durable POA for Healthcare: No
[2023-12-14 15:18] VITALS: BMI 38.0
[2023-12-14 21:22] VITALS: BP 73/36; TEMP 97.5
[2023-12-14 23:47] VITALS: O2SAT 42
--- NOTE | 2023-12-15 11:58 | P.DS ---
Admission Date: 12/14/23 Discharge Date: 12/15/23 Reason for Admission: WEAK, CONFUSED, SHORT OF BREATH - Problems (1) Respiratory failure Current Visit: Yes Status: Acute (2) Cirrhosis Current Visit: No Status: Chronic Qualifiers: Ascites presence: with ascites Brief History of Present Illness: PALMER IS A OLIVEIRA CIRRHOSIS PATIENT WITH LARGE ASCITES IS GETTING WORSE OVER WEEKS. SHE BECAME WEAK, SHORT OF BREATH AND UNCONSCIOUS AT [place]. THIS WAS EXPECTED. WE WERE IN PROCESS OF PLACING HER ON HOSPICE AND SHE ENDS UP IN ER. DAUGHTER IS VERY ATTENTIVE AND CONTENT WITH HER BEING ON HOSPICE HERE. SHE IN THE ER SIGNED UP PAPERS. PALMER HAS SEVERE PULMONARY EDEMA. 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 FAMILY WANTED HOSPICE AND SHE ON HOSPICE EXPECTED. Vital Signs/Physical Exam: Temp Pulse Resp BP Pulse Ox 97.5 F 101 H 0 L 73/36 L 0 L 12/15/23 00:00 12/15/23 00:00 12/15/23 03:42 12/15/23 00:00 12/15/23 03:42 Home Medications: Amiloride HCl 5 mg PO DAILY 08/30/23 Amitriptyline [Elavil] 25 mg PO BEDTIME 08/30/23 Cefuroxime [Ceftin*] 250 mg PO BID #14 tab 08/30/23 Famotidine [Pepcid] 40 mg PO BEDTIME 08/30/23 Lipase/Protease/Amylase [Matthew Childs 36,000 Units Capsule] 1 each PO AC 08/30/23 Magnesium l-Lactate [Mag-Tab Sr] 84 mg PO Q12H 08/30/23 Montelukast [Singulair] 10 mg PO DAILY 08/30/23 PARoxetine HCL [Paxil] 10 mg PO BEDTIME 08/30/23 fentaNYL [Fentanyl] 12 mcg TD Q72H 08/30/23
[2023-12-17] MEDS ORDERED: SCOPOLAMINE HYDROBROMIDE PATCH TD SCH (09:00)
== END 2023-12-15 08:00 | disposition expired | DRG 951 ==
LOC: ERHOLD 10:57 → 4TH 12:04
PROVIDERS: ADMIT Internal Medicine; ATTEND Internal Medicine
DX: Z51.5 Encounter for palliative care (principal)
CPT/HCPCS: J1170